=== PATIENT | male | born 1950 | race Caucasian/White ===

== ENCOUNTER 2017-11-10 09:18 | Outpatient (CLI) | payer MEDICARE, BC, SELFPAY ==
[2017-11-10 11:06] LABS: Anion Gap 4.6 mmol/L (3-11); BUN 22 mg/dL (7-18); CO2 32.4 mmol/L (21.0-32.0); Calcium 9.4 mg/dL (8.5-10.1); Chloride 99 mmol/L (98-107); Estimated GFR 54.73 (mL/min/1.73m2); Glucose 168 mg/dL (70-100); Potassium 4.8 mmol/L (3.5-5.1); Sodium 136 mmol/L (136-145)
== END 2017-11-10 09:38 ==
LOC: LBO 09:19 → LOS 11:12
PROVIDERS: PCP Emergency Medicine; Visit Provider Emergency Medicine
DX: I10 Essential (primary) hypertension (principal)
CPT/HCPCS: 36415; 80048

== ENCOUNTER → 2018-01-04 09:27 | Outpatient (BNVA) | payer MEDICARE, BC, SELFPAY | PROVIDERS: PCP Emergency Medicine; Visit Provider Psychiatry & Neurology Neurology | DX: G70.00 Myasthenia gravis without (acute) exacerbation (principal); E11.311 Type 2 diabetes mellitus with unspecified diabetic retinopathy with macular edema; I10 Essential (primary) hypertension; Z79.4 Long term (current) use of insulin | CPT/HCPCS: 99214 ==

== ENCOUNTER 2018-01-05 08:13 | Outpatient (CLI) | payer MEDICARE, BC, SELFPAY ==
[2018-01-05 11:13] LABS: Abs Immature Grans 0.01 k/cumm (0.0-0.09); Absolute Basophil Count 0.03 k/cumm (0.0-0.2); Absolute Monocyte Count 0.72 k/cumm (0.11-0.7); Absolute Neutrophil Count 3.66 k/cumm (1.2-6.7); Basophils % 0.5; Eosinophils % 3.4; HCT 42.2 % (40.0-50.0); HGB 13.8 g/dL (13.5-17.5); Immature Grans % 0.2; Lymphocytes % 20.6; Mean Corp. HGB Concentration 32.7 g/dL (32.0-36.0); Mean Corpuscular Hemoglobin 30.7 pg (27.0-33.0); Mean Corpuscular Volume 93.8 fL (80-95); Mean Platelet Volume 10.9 fL (8.0-11.0); Monocytes % 12.4; Neutrophils % 62.9; Platelet Count 235 x1000/uL (130-400); RBC Distribution Width 13.1 % (11.8-14.1); White Blood Cell Count 5.82 k/cumm (4.4-10.8)
[2018-01-05 12:50] LABS: ALT 46 U/L (12-78); AST 22 U/L (15-37); Albumin 3.9 g/dL (3.4-5.0); Alkaline Phosphatase 85 U/L (46-116); BUN 25 mg/dL (7-18); Bilirubin, Total 0.5 mg/dL (0.2-1.0); CREATININE 1.11 mg/dL (0.70-1.30); Calcium 9.1 mg/dL (8.5-10.1); Chloride 96 mmol/L (98-107); Glucose 277 mg/dL (70-100); Potassium 5.2 mmol/L (3.5-5.1); Sodium 134 mmol/L (136-145); Total Protein 6.9 g/dL (6.4-8.2)
== END 2018-01-05 08:33 ==
PROVIDERS: PCP Emergency Medicine; Visit Provider Psychiatry & Neurology Neurology
DX: R74.8 Abnormal levels of other serum enzymes (principal)
CPT/HCPCS: 36415; 80053; 85025

== ENCOUNTER 2018-01-08 08:39 | Outpatient (CLI) | payer MEDICARE, BC, SELFPAY ==
[2018-01-08 12:50] LABS: Anion Gap 7.2 mmol/L (3-11); BUN 21 mg/dL (7-18); CO2 31.8 mmol/L (21.0-32.0); CREATININE 1.13 mg/dL (0.70-1.30); Calcium 9.4 mg/dL (8.5-10.1); Chloride 99 mmol/L (98-107); Glucose 156 mg/dL (70-100); Potassium 4.6 mmol/L (3.5-5.1); Sodium 138 mmol/L (136-145)
== END 2018-01-08 08:59 ==
PROVIDERS: PCP Emergency Medicine; Visit Provider Psychiatry & Neurology Neurology
DX: G70.00 Myasthenia gravis without (acute) exacerbation (principal)
CPT/HCPCS: 36415; 80048

== ENCOUNTER 2018-02-19 15:45 | Emergency (ER) | payer OTHER, SELFPAY ==
[2018-02-19 15:53] VITALS: BP 171/84; PULSE 93; RESP 15; TEMP 37.3; O2SAT 96
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
[2018-02-19 16:28] LABS: Abs Immature Grans 0.04 k/cumm (0.0-0.09); Absolute Basophil Count 0.04 k/cumm (0.0-0.2); Absolute Eosinophil Count 0.06 k/cumm (0.0-0.7); Absolute Lymphocyte Count 0.94 k/cumm (1.2-3.4); Basophils % 0.3; Eosinophils % 0.5; HGB 14.1 g/dL (13.5-17.5); Immature Grans % 0.3; Lymphocytes % 7.9; Mean Corp. HGB Concentration 33.6 g/dL (32.0-36.0); Mean Corpuscular Hemoglobin 30.7 pg (27.0-33.0); Mean Corpuscular Volume 91.3 fL (80-95); Mean Platelet Volume 10.8 fL (8.0-11.0); Monocytes % 11.5; Neutrophils % 79.5; Platelet Count 261 x1000/uL (130-400); RBC Distribution Width 13.1 % (11.8-14.1); White Blood Cell Count 11.87 k/cumm (4.4-10.8)
[2018-02-19] MEDS: Normal Saline 250 ML 500 ML IV (16:29)
[2018-02-19 16:31] LABS: Absolute Monocyte Count 1.37 k/cumm (0.11-0.7); Absolute Neutrophil Count 9.44 k/cumm (1.2-6.7)
[2018-02-19 16:50] LABS: ALT 46 U/L (12-78); AST 36 U/L (15-37); Alkaline Phosphatase 94 U/L (46-116); Anion Gap 5.6 mmol/L (3-11); BUN 24 mg/dL (7-18); Bilirubin, Total 0.5 mg/dL (0.2-1.0); CO2 30.4 mmol/L (21.0-32.0); CREATININE 1.25 mg/dL (0.70-1.30); Calcium 9.3 mg/dL (8.5-10.1); Chloride 95 mmol/L (98-107); Glucose 445 mg/dL (70-100); Lipase 172 U/L (73-393); Magnesium 1.9 mg/dL (1.8-2.4); Potassium 3.7 mmol/L (3.5-5.1); Sodium 131 mmol/L (136-145); Total Protein 7.3 g/dL (6.4-8.2)
[2018-02-19 17:01] LABS: Troponin I < 0.02 ng/mL (0.00-0.06)
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
--- NOTE | 2018-02-19 17:18 | NUR.NOTE ---
patient to have CT, patient aware Nursing Note:
[2018-02-19 17:24] VITALS: BP 131/64; PULSE 78
[2018-02-19] MEDS: Omnipaque 350 MG/ML 100 ML BTL IJ (17:34)
--- NOTE | 2018-02-19 17:38 | NUR.NOTE ---
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 patient has call light in place Nursing Note:
[2018-02-19 18:11] VITALS: BP 168/78; PULSE 78; RESP 16; O2SAT 96
--- NOTE | 2018-02-19 18:11 | NUR.NOTE ---
patient sitting in chair, patient aware of awaiting CT results Nursing Note:
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
[2018-02-19 18:58] VITALS: BP 128/58; PULSE 84; RESP 18; O2SAT 96
--- NOTE | 2018-02-19 18:59 | NUR.NOTE ---
patient aware of waiting for [facility] to return call Nursing Note:
[2018-02-19 19:03] LABS: Bilirubin Negative (Negative); Blood Large (Negative); Clarity Cloudy; Glucose 500 mg/dL (Negative); Ketones Negative (Negative); Leukocyte Esterase Negative (Negative); Nitrite Negative (Negative); Specific Gravity 1.015 (1.005-1.025); Urobilinogen 0.2 EU/dL (Up TO 0.2)
[2018-02-19 19:06] LABS: RBC >50 (0-2)
[2018-02-19 19:07] LABS: C & S Indicated? Yes
--- NOTE | 2018-02-19 19:33 | NUR.NOTE ---
patient refuses to take home medication, patient signed out MD EMILY aware Nursing Note:
[2018-02-19 19:34] VITALS: BP 164/84; RESP 18; O2SAT 96
== END 2018-02-19 19:36 | disposition left against medical advice (07) ==
PROVIDERS: Emergency Provider Physician Assistant; PCP Emergency Medicine
DX: S22.20XA Unspecified fracture of sternum, initial encounter for closed fracture (principal); R31.9 Hematuria, unspecified; R93.41 Abnormal radiologic findings on diagnostic imaging of renal pelvis, ureter, or bladder; V43.52XA Car driver injured in collision with other type car in traffic accident, initial encounter; Z53.29 Procedure and treatment not carried out because of patient's decision for other reasons; R07.81 Pleurodynia; E11.9 Type 2 diabetes mellitus without complications; Z79.4 Long term (current) use of insulin; I10 Essential (primary) hypertension
CPT/HCPCS: 36415; 74177; 80053; 83690; 93005; 99285; 81003; 81015; 83735; 84484; 85025; 87086; 93010; J3490

== ENCOUNTER → 2018-03-01 12:46 | Outpatient (BNVA) | payer MEDICARE, BC, SELFPAY | PROVIDERS: PCP Emergency Medicine; Referring Provider Emergency Medicine; Visit Provider Urology | DX: C67.9 Malignant neoplasm of bladder, unspecified (principal); E10.319 Type 1 diabetes mellitus with unspecified diabetic retinopathy without macular edema | CPT/HCPCS: 99214 ==

== ENCOUNTER 2018-03-08 09:30 | Day surgery (SDC) | payer MEDICARE, BC, SELFPAY ==
[2018-03-08] VITALS (7 sets, daily range): BP systolic 130–156; BP diastolic 55–79; PULSE 60–70; RESP 14–24; TEMP 36.5–37; O2SAT 96–99
[2018-03-08] MEDS: Lactated Ringers 1,000 ML 80 ML IV (10:25)
[2018-03-08] MEDS: Lidocaine 2% Jelly 6 ML SYR (13:35)
--- NOTE | 2018-03-08 13:40 | BLADDER_PTH ---
PATIENT: Guillermo Hines LOC: [facility] U#:[id number] AGE/SX: 68/M ROOM: RE03/08/[address]: Sandro Kang MD : [id number] BED: DIS: 03/08/2018 SPEC #: [id number] RECD: 03/08/18 17:59 STATUS: LIZET REQ #: [id number] KITTY: 03/08/18 13:[address]: Sandro Kang DEPT: Surgical Specimen RECD BY: Cynthia Sesay ENTERED: 03/08/18 17:59 SP TYPE: Bladder OTHR DR: Dilan Carbajal DO Tissues: 1 - BLADDER CURRETTINGS Procedures: GROSS AND MICRO LEVEL 5 Comments: [id number]
--- NOTE | 2018-03-08 14:21 | W.PM.DSUDISC ---
Discharge Plan Disposition Patient Disposition: HOME Condition: Stable Discharge Details Reason For Visit: BLADDER MASS Attending Provider: Sandro Kang Primary Care Provider: Dilan Carbajal Home Meds and New Rx's Prescriptions: No Action hydrochlorothiazide 25 mg tablet 37.5 mg PO DAILY RF: 0 lisinopril 20 mg tablet 20 mg PO HS RF: 0 amlodipine 10 mg tablet 10 mg PO DAILY RF: 0 omeprazole 20 mg capsule,delayed release(DR/EC) 20 mg PO .EVERY OTHER DAY RF: 0 ranitidine HCl 150 mg capsule 150 mg PO HS RF: 0 levothyroxine 75 mcg capsule 75 mcg PO DAILY RF: 0 Lantus U-100 Insulin 100 unit/mL solution 28 unit SC BID RF: 0 sulfasalazine 500 mg tablet 1,500 mg PO Q6H RF: 0 folic acid 0.8 mg capsule 0.8 mg PO DAILY RF: 0 insulin lispro 100 unit/mL solution 10 - 15 unit SC .three times day RF: 0 Humulin N NPH U-100 Insulin 100 unit/mL suspension See Patient Comments SC BID PRNRF: 0 mycophenolate mofetil 250 mg capsule 250 mg PO BID RF: 0 aspirin [Aspir-81] 81 MG tablet,delayed release (DR/EC) 81 mg PO DAILY RF: 0 blood sugar diagnostic [OneTouch Ultra Test] 1 EACH strip 1 ea Miscellaneous 5X DAILY Qty: 100 RF: 0 insulin syringe,safetyneedle [Easy Touch Insulin Safety Syr] 1 EACH syringe 1 ea SQ DIRECTED Qty: 700 RF: 4 pyridostigmine bromide [Mestinon] 60 mg tablet 60 mg PO Q6H PRN (Reason: weakness) Qty: 270 RF: 3 Discharge Instructions Additional Instructions: Posey to leg bag Followup Thursday for catheter removal Activity:: no lifting over 10 pounds until catheter removed Diet:: As Tolerated Discharge Orders Discharge Orders: Discharge Order (Routine); Ordered 03/08/18 Ordered By: Sandro Kang
[2018-03-08] MEDS: Phenazopyridine 200 MG TAB PO (15:08)
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
== END 2018-03-08 16:03 | disposition home or self-care (01) ==
PROVIDERS: PCP Emergency Medicine; Visit Provider Urology
PROC: 0TBB8ZZ Excision of Bladder, Via Natural or Artificial Opening Endoscopic (ICD-10-PCS; CPT 52235; principal; 2018-03-08 10:45)
DX: C67.4 Malignant neoplasm of posterior wall of bladder (principal); E10.9 Type 1 diabetes mellitus without complications; E03.9 Hypothyroidism, unspecified
CPT/HCPCS: 52235; 88307; J0690; J1100; J1885; J2405

== ENCOUNTER → 2018-03-12 07:36 | Outpatient (BNVA) | payer MEDICARE, BC, SELFPAY | PROVIDERS: PCP Emergency Medicine; Visit Provider Urology | DX: D41.4 Neoplasm of uncertain behavior of bladder (principal); E11.9 Type 2 diabetes mellitus without complications; Z79.4 Long term (current) use of insulin; I10 Essential (primary) hypertension | CPT/HCPCS: 99212; 99213 ==

== ENCOUNTER 2018-05-28 09:54 | Outpatient (CLI) | payer MEDICARE, BC, SELFPAY ==
[2018-05-28 13:02] LABS: Cholesterol 228 mg/dL (50-200); HDL Cholesterol 59 mg/dL (40-60); LDL CHOLESTEROL 151 mg/dL (<100); Triglyceride 72 mg/dL (30-150)
[2018-05-28 13:29] LABS: Creatine Kinase 410 U/L (39-308)
== END 2018-05-28 10:14 ==
PROVIDERS: PCP Emergency Medicine; Visit Provider Emergency Medicine
DX: R74.8 Abnormal levels of other serum enzymes (principal); E11.9 Type 2 diabetes mellitus without complications
CPT/HCPCS: 36415; 80061; 82550; 83721

== ENCOUNTER → 2018-06-22 08:33 | Outpatient (BNVA) | payer MEDICARE, BC, SELFPAY | PROVIDERS: PCP Emergency Medicine; Visit Provider Urology | DX: C67.9 Malignant neoplasm of bladder, unspecified (principal) | CPT/HCPCS: 52000; 99212 ==

== ENCOUNTER 2018-09-29 02:27 | Outpatient (CLI) | payer MEDICARE, BC, SELFPAY ==
[2018-09-29 12:42] LABS: Anion Gap 4.7 mmol/L (3-11); BUN 21 mg/dL (7-18); CO2 32.3 mmol/L (21.0-32.0); CREATININE 1.11 mg/dL (0.70-1.30); Calcium 9.1 mg/dL (8.5-10.1); Calculated LDL 100 mg/dL; Chloride 100 mmol/L (98-107); Cholesterol 176 mg/dL (50-200); Glucose 177 mg/dL (70-100); HDL Cholesterol 58 mg/dL (40-60); Potassium 5.3 mmol/L (3.5-5.1); Sodium 137 mmol/L (136-145); Triglyceride 91 mg/dL (30-150)
[2018-09-29 12:55] LABS: Hemoglobin A1C 6.7 % (4.5-6.2)
== END 2018-09-29 02:47 ==
PROVIDERS: PCP Emergency Medicine; Visit Provider Emergency Medicine
DX: E11.9 Type 2 diabetes mellitus without complications (principal)
CPT/HCPCS: 36415; 80048; 80061; 83721; 83036

== ENCOUNTER → 2018-10-19 13:24 | Outpatient (BNVA) | payer MEDICARE, BC, SELFPAY | PROVIDERS: PCP Emergency Medicine; Visit Provider Urology | DX: C67.9 Malignant neoplasm of bladder, unspecified (principal); I10 Essential (primary) hypertension; E11.9 Type 2 diabetes mellitus without complications | CPT/HCPCS: 52000; 99212 ==

== ENCOUNTER → 2019-01-17 09:48 | Outpatient (BNVA) | payer MEDICARE, BC, SELFPAY | PROVIDERS: PCP Emergency Medicine; Referring Provider Emergency Medicine; Visit Provider Psychiatry & Neurology Neurology | DX: R74.8 Abnormal levels of other serum enzymes (principal); G70.00 Myasthenia gravis without (acute) exacerbation; E11.9 Type 2 diabetes mellitus without complications | CPT/HCPCS: 99214 ==

== ENCOUNTER 2019-01-21 09:02 | Outpatient (CLI) | payer MEDICARE, BC, SELFPAY ==
[2019-01-21 10:45] LABS: Abs Immature Grans 0.01 k/cumm (0.0-0.09); Absolute Basophil Count 0.03 k/cumm (0.0-0.2); Absolute Eosinophil Count 0.07 k/cumm (0.0-0.7); Absolute Lymphocyte Count 1.08 k/cumm (1.2-3.4); Absolute Monocyte Count 0.82 k/cumm (0.11-0.7); Absolute Neutrophil Count 4.44 k/cumm (1.2-6.7); Basophils % 0.5; Eosinophils % 1.1; HCT 42.3 % (40.0-50.0); Immature Grans % 0.2; Lymphocytes % 16.7; Mean Corp. HGB Concentration 33.1 g/dL (32.0-36.0); Mean Corpuscular Hemoglobin 31.4 pg (27.0-33.0); Mean Corpuscular Volume 94.8 fL (80-95); Mean Platelet Volume 10.3 fL (8.0-11.0); Monocytes % 12.7; Neutrophils % 68.8; Platelet Count 261 x1000/uL (130-400); RBC 4.46 m/cumm (4.50-6.00); RBC Distribution Width 12.7 % (11.8-14.1); White Blood Cell Count 6.45 k/cumm (4.4-10.8)
[2019-01-21 11:39] LABS: ALT 42 U/L (16-63); AST 24 U/L (15-37); Albumin 4.1 g/dL (3.4-5.0); Alkaline Phosphatase 77 U/L (46-116); Anion Gap 8.2 mmol/L (3-11); BUN 21 mg/dL (7-18); Bilirubin, Total 0.4 mg/dL (0.2-1.0); CO2 31.8 mmol/L (21.0-32.0); CREATININE 1.22 mg/dL (0.70-1.30); Calcium 9.4 mg/dL (8.5-10.1); Chloride 99 mmol/L (98-107); Estimated GFR 58.73 (mL/min/1.73m2); Glucose 280 mg/dL (74-106); Potassium 5.6 mmol/L (3.5-5.1); Sodium 139 mmol/L (136-145); Total Protein 7.1 g/dL (6.4-8.2)
== END 2019-01-21 09:22 ==
PROVIDERS: PCP Emergency Medicine; Visit Provider Psychiatry & Neurology Neurology
DX: G70.00 Myasthenia gravis without (acute) exacerbation (principal)
CPT/HCPCS: 36415; 80053; 85025

== ENCOUNTER → 2019-02-18 08:35 | Outpatient (BNVA) | payer MEDICARE, BC, SELFPAY | PROVIDERS: PCP Emergency Medicine; Referring Provider Emergency Medicine; Visit Provider Urology | DX: C67.9 Malignant neoplasm of bladder, unspecified (principal) | CPT/HCPCS: 52000; 99213 ==

== ENCOUNTER → 2019-03-14 10:12 | Outpatient (BNVA) | payer MEDICARE, BC, SELFPAY | PROVIDERS: PCP Emergency Medicine; Referring Provider Emergency Medicine; Visit Provider Psychiatry & Neurology Neurology | DX: G70.00 Myasthenia gravis without (acute) exacerbation (principal) | CPT/HCPCS: 99214 ==

== ENCOUNTER 2019-08-11 02:42 | Outpatient (CLI) | payer MEDICARE, BC, SELFPAY ==
[2019-08-11 10:41] LABS: Hemoglobin A1C 6.2 % (3.8-5.6)
[2019-08-11 11:31] LABS: TSH 2.22 uIU/mL (0.36-3.74)
== END 2019-08-11 03:02 ==
PROVIDERS: PCP Emergency Medicine; Visit Provider Internal Medicine Endocrinology, Diabetes & Metabolism
DX: E10.8 Type 1 diabetes mellitus with unspecified complications (principal)
CPT/HCPCS: 36415; 83036; 84443

== ENCOUNTER → 2019-08-23 09:04 | Outpatient (BNVA) | payer MEDICARE, BC, SELFPAY | PROVIDERS: PCP Emergency Medicine; Referring Provider Emergency Medicine; Visit Provider Urology | DX: C67.9 Malignant neoplasm of bladder, unspecified (principal) | CPT/HCPCS: 52000; 99213 ==

== ENCOUNTER 2019-08-23 11:35 | Outpatient (REF) | payer MEDICARE, BC, SELFPAY ==
--- NOTE | 2019-08-23 09:40 | PAPNONF_PTH ---
PATIENT: Guillermo Hines LOC: [facility] U#:[id number] AGE/SX: 69/M ROOM: RE08/23/[address]: Sandro Kang MD : 1950 BED: DIS: 08/23/2019 SPEC #: [id number] RECD: 08/23/19 12:46 STATUS: LIZET REQ #: [id number] KITTY: 08/23/19 09:[address]: Sandro Kang DEPT: [facility] Cytology RECD BY: Cynthia Sesay ENTERED: 08/23/19 12:47 SP TYPE: VELVET REINA DR: Dilan Carbajal, DO Tissues: 1 - BODY FLUID CYTO(SPUTUM/URINE)[facility] Procedures: BODY FLUID CYTO(URINE/SPUTUM) Comments: [id number] (TOTAL VOLUME = 45 ml's) (45 ml's URINE & 45 ml's CYTOLYT ADDED)
== END 2019-08-23 11:55 ==
LOC: LBN 11:35
PROVIDERS: PCP Emergency Medicine; Visit Provider Urology
DX: C67.9 Malignant neoplasm of bladder, unspecified (principal); R82.89 Other abnormal findings on cytological and histological examination of urine
CPT/HCPCS: 88104

== ENCOUNTER → 2019-10-13 14:46 | Outpatient (BNVA) | payer MEDICARE, BC, SELFPAY | PROVIDERS: PCP Emergency Medicine; Referring Provider Emergency Medicine; Visit Provider Psychiatry & Neurology Neurology | DX: G70.00 Myasthenia gravis without (acute) exacerbation (principal); I10 Essential (primary) hypertension | CPT/HCPCS: 99214 ==

== ENCOUNTER → 2019-11-17 13:27 | Outpatient (BNVA) | payer MEDICARE, BC, SELFPAY | PROVIDERS: PCP Emergency Medicine; Referring Provider Emergency Medicine; Visit Provider Psychiatry & Neurology Neurology | DX: G70.00 Myasthenia gravis without (acute) exacerbation (principal); E11.9 Type 2 diabetes mellitus without complications; I10 Essential (primary) hypertension | CPT/HCPCS: 99213 ==

== ENCOUNTER 2019-11-23 03:15 | Outpatient (CLI) | payer MEDICARE, BC, SELFPAY ==
[2019-11-23 12:52] LABS: Abs Immature Grans 0.01 10^3/uL (0.0-0.06); Absolute Basophil Count 0.05 10^3/uL (0.0-0.2); Absolute Eosinophil Count 0.07 10^3/uL (0.0-0.7); Absolute Lymphocyte Count 0.99 10^3/uL (1.2-3.4); Absolute Monocyte Count 0.62 10^3/uL (0.1-0.8); Absolute Neutrophil Count 4.01 10^3/uL (1.2-6.7); Basophils % 0.9; Eosinophils % 1.2; HCT 41.1 % (40.0-50.0); HGB 13.5 g/dL (13.5-17.5); Immature Grans % 0.2; Lymphocytes % 17.2; MCH 31.6 pg (27.0-33.0); MCHC 32.8 % (32.0-36.0); MCV 96.3 fL (80-95); MPV 10.7 fL (8.0-11.0); Monocytes % 10.8; Neutrophils % 69.7; Nucleated RBC 0 %; Platelet Count 247 10^3/uL (130-400); RBC 4.27 10^6/uL (4.36-5.78); RDW 13.4 % (11.8-14.1); RDW-SD 46.5 fL; WBC 5.75 10^3/uL (4.4-10.8)
[2019-11-23 13:09] LABS: ALT 34 U/L (16-63); AST 20 U/L (15-37); Albumin 3.8 g/dL (3.4-5.0); Alkaline Phosphatase 60 U/L (46-116); Anion Gap 5.7 mmol/L (3-11); BUN 18 mg/dL (7-18); Bilirubin, Total 0.6 mg/dL (0.2-1.0); CO2 31.3 mmol/L (21.0-32.0); CREATININE 1.11 mg/dL (0.70-1.30); Calcium 8.9 mg/dL (8.5-10.1); Chloride 100 mmol/L (98-107); Glucose 280 mg/dL (74-106); Potassium 4.6 mmol/L (3.5-5.1); Sodium 137 mmol/L (136-145); Total Protein 6.4 g/dL (6.4-8.2)
== END 2019-11-23 03:35 ==
PROVIDERS: PCP Emergency Medicine; Visit Provider Psychiatry & Neurology Neurology
DX: G70.00 Myasthenia gravis without (acute) exacerbation (principal)
CPT/HCPCS: 36415; 80053; 85025

== ENCOUNTER → 2020-01-19 09:18 | Outpatient (BNVA) | payer MEDICARE, BC, SELFPAY | PROVIDERS: PCP Emergency Medicine; Referring Provider Emergency Medicine; Visit Provider Psychiatry & Neurology Neurology | DX: G70.00 Myasthenia gravis without (acute) exacerbation (principal); E11.9 Type 2 diabetes mellitus without complications; I10 Essential (primary) hypertension; Z79.4 Long term (current) use of insulin | CPT/HCPCS: 99214 ==

== ENCOUNTER 2020-02-07 04:11 | Outpatient (CLI) | payer MEDICARE, BC, SELFPAY ==
[2020-02-07 13:07] LABS: COMMENT (LAB VIEW ONLY) 104.87 mg/dL
[2020-02-07 13:08] LABS: CREATININE 1.15 mg/dL (0.70-1.30); Calculated LDL 149 mg/dL (<100); Cholesterol 230 mg/dL (<200); HDL Cholesterol 64 mg/dL (40-60); TSH 3.42 uIU/mL (0.36-3.74); Triglyceride 88 mg/dL (<150)
[2020-02-07 13:17] LABS: Microalb ug/mg Crea 161.1 ug/mg Cr
[2020-02-07 13:19] LABS: Hemoglobin A1C 6.2 % (<5.7)
[2020-02-07 19:45] LABS: Creatinine,Urine 106.05 mg/dL
== END 2020-02-07 04:31 ==
PROVIDERS: PCP Emergency Medicine; Visit Provider Internal Medicine Endocrinology, Diabetes & Metabolism
DX: E10.8 Type 1 diabetes mellitus with unspecified complications (principal)
CPT/HCPCS: 36415; 80061; 82043; 82565; 82570; 83036; 84443

== ENCOUNTER → 2020-03-15 09:57 | Outpatient (BNVA) | payer MEDICARE, BC, SELFPAY | PROVIDERS: PCP Emergency Medicine; Referring Provider Emergency Medicine; Visit Provider Urology | DX: C67.9 Malignant neoplasm of bladder, unspecified (principal) | CPT/HCPCS: 52000; 81003; 99213 ==

== ENCOUNTER 2020-03-15 10:40 | Outpatient (REF) | payer MEDICARE, BC, SELFPAY ==
--- NOTE | 2020-03-15 10:30 | PAPNONF_PTH ---
PATIENT: Guillermo Hines LOC: [facility] U#:[id number] AGE/SX: 70/M ROOM: RE03/15/[address]: Sandro Kang MD : 1950 BED: DIS: 03/15/2020 SPEC #: [id number] RECD: 03/15/20 13:00 STATUS: LIZET RENic #: [id number] KITTY: 03/15/20 10:[address]: Sandro Kang [facility]PT[facility] RECD BY: Cynthia Sesay ENTERED: 03/15/20 13:00 SP TYPE: VELVET REINA DR: Dilan Carbajal, DO Tissues: 1 - BODY FLUID CYTO(SPUTUM/URINE)[facility] Procedures: BODY FLUID CYTO(URINE/SPUTUM) Comments: [id number] (TOTAL VOLUME = 40 ml's) (40 ml's URINE & 40'ml's CYTOLYT ADDED)
== END 2020-03-15 11:00 ==
LOC: LBN 10:40
PROVIDERS: PCP Emergency Medicine; Visit Provider Urology
DX: C67.9 Malignant neoplasm of bladder, unspecified (principal); R82.89 Other abnormal findings on cytological and histological examination of urine
CPT/HCPCS: 88104

== ENCOUNTER → 2020-03-19 10:54 | Outpatient (BNVA) | payer MEDICARE, BC, SELFPAY | PROVIDERS: PCP Emergency Medicine; Referring Provider Emergency Medicine; Visit Provider Psychiatry & Neurology Neurology | DX: G70.00 Myasthenia gravis without (acute) exacerbation (principal); E11.9 Type 2 diabetes mellitus without complications | CPT/HCPCS: 99215 ==

== ENCOUNTER 2020-04-20 01:39 | Outpatient (RCR) | payer MEDICARE, BC, SELFPAY ==
[2020-04-16 08:04] VITALS: BP 170/74; PULSE 77; RESP 19; TEMP 36.4; O2SAT 97
[2020-04-16] MEDS: IMMUNE GLOBULIN 40 GM/400 ML BTL IVPB (08:18)
[2020-04-16] MEDS: Normal Saline Flush 10 ML SYR IVP (08:20)
[2020-04-16 08:24] VITALS: BP 154/97; PULSE 75; RESP 19; TEMP 36.4; O2SAT 99
[2020-04-16 08:40] VITALS: BP 151/67; PULSE 75; RESP 18; TEMP 36.6; O2SAT 99
[2020-04-16 09:09] VITALS: BP 163/64; PULSE 68; RESP 18; TEMP 36.5; O2SAT 96
[2020-04-16 09:40] VITALS: BP 136/69; PULSE 60; RESP 12; TEMP 36.6; O2SAT 97
[2020-04-16 10:09] VITALS: BP 155/75; PULSE 47; RESP 19; TEMP 36.6; O2SAT 97
[2020-04-17 08:08] VITALS: BP 182/81; PULSE 85; RESP 20; TEMP 37.2; O2SAT 98
[2020-04-17] MEDS: IMMUNE GLOBULIN 40 GM/400 ML BTL IVPB (08:08)
[2020-04-17] MEDS: Normal Saline Flush 10 ML SYR IVP (08:09)
[2020-04-17 08:13] VITALS: BP 187/74; PULSE 77; RESP 19; TEMP 37.2; O2SAT 97
[2020-04-17 08:28] VITALS: BP 147/67; PULSE 74; RESP 18; TEMP 37; O2SAT 97
[2020-04-17 08:29] LABS: CREATININE 1.4 mg/dL (0.70-1.30); Estimated GFR 49.82 (mL/min/1.73m2)
[2020-04-17 08:58] VITALS: BP 124/58; PULSE 74; RESP 19; TEMP 37; O2SAT 97
[2020-04-17 09:28] VITALS: BP 133/77; PULSE 68; RESP 18; TEMP 37; O2SAT 95
[2020-04-17 09:58] VITALS: BP 173/84; PULSE 67; RESP 19; TEMP 37; O2SAT 97
[2020-04-18 08:04] VITALS: BP 168/77; PULSE 82; RESP 19; TEMP 36.3; O2SAT 97
[2020-04-18] MEDS: IMMUNE GLOBULIN 40 GM/400 ML BTL IVPB (08:12)
[2020-04-18] MEDS: Normal Saline Flush 10 ML SYR IVP (08:12)
[2020-04-18 08:15] VITALS: BP 149/63; PULSE 72; RESP 18; TEMP 36.3; O2SAT 99
[2020-04-18 08:30] VITALS: BP 130/59; PULSE 71; RESP 18; TEMP 36.3; O2SAT 98
[2020-04-18 09:00] VITALS: BP 130/65; PULSE 65; RESP 20; TEMP 36.8; O2SAT 96
[2020-04-18 09:30] VITALS: BP 137/64; PULSE 69; RESP 20; TEMP 36.8; O2SAT 95
[2020-04-18 10:00] VITALS: BP 158/65; PULSE 61; RESP 20; TEMP 36.8; O2SAT 98
[2020-04-19] MEDS: IMMUNE GLOBULIN 40 GM/400 ML BTL IVPB (08:05)
[2020-04-19 08:07] VITALS: BP 144/64; PULSE 69; RESP 19; TEMP 36.4; O2SAT 100
[2020-04-19 08:09] VITALS: BP 144/64; PULSE 69; RESP 19; TEMP 36.4; O2SAT 99
[2020-04-19] MEDS: Normal Saline Flush 10 ML SYR IVP (08:09)
[2020-04-19 08:24] VITALS: BP 122/64; PULSE 65; RESP 18; TEMP 36.4; O2SAT 97
[2020-04-19 08:54] VITALS: BP 124/59; PULSE 61; RESP 18; TEMP 36.4; O2SAT 98
[2020-04-19 09:32] VITALS: BP 135/70; PULSE 64; RESP 17; TEMP 36.6; O2SAT 96
[2020-04-19 09:54] VITALS: BP 149/81; PULSE 64; RESP 18; TEMP 36.6; O2SAT 97
[2020-04-20] MEDS: Normal Saline Flush 10 ML SYR IVP (07:38)
[2020-04-20] MEDS: IMMUNE GLOBULIN 40 GM/400 ML BTL IVPB (07:38)
[2020-04-20 07:39] VITALS: BP 130/68; PULSE 65; RESP 16; TEMP 36.2; O2SAT 98
[2020-04-20 07:42] LABS: CREATININE 1.2 mg/dL (0.70-1.30); Estimated GFR 59.51 (mL/min/1.73m2)
[2020-04-20 07:55] VITALS: BP 135/71; PULSE 64; RESP 16; TEMP 36.1; O2SAT 96
[2020-04-20 08:16] VITALS: BP 126/70; PULSE 59; RESP 16; TEMP 36.1; O2SAT 97
[2020-04-20 08:45] VITALS: BP 142/75; PULSE 60; RESP 16; TEMP 36.8; O2SAT 98
== END 2020-04-29 23:59 | disposition home or self-care (01) ==
LOC: INF 01:39
PROVIDERS: PCP Emergency Medicine; Visit Provider Psychiatry & Neurology Neurology
DX: G70.00 Myasthenia gravis without (acute) exacerbation (principal)
CPT/HCPCS: 36415; 96365; 96366; 82565; J1459

== ENCOUNTER → 2020-05-21 11:20 | Outpatient (BNVA) | payer MEDICARE, BC, SELFPAY | PROVIDERS: PCP Emergency Medicine; Referring Provider Emergency Medicine; Visit Provider Psychiatry & Neurology Neurology | DX: G70.00 Myasthenia gravis without (acute) exacerbation (principal) | CPT/HCPCS: 99215 ==

== ENCOUNTER 2020-05-30 02:26 | Outpatient (RCR) | payer MEDICARE, BC, SELFPAY ==
[2020-04-30 00:10] VITALS: BP 142/75; PULSE 60; RESP 16; TEMP 36.8
[2020-05-28 08:22] VITALS: BP 150/69; PULSE 64; RESP 18; TEMP 37.1; O2SAT 96
[2020-05-28] MEDS: IMMUNE GLOBULIN 40 GM/400 ML BTL IVPB (08:32)
[2020-05-28] MEDS: Normal Saline Flush 10 ML SYR IVP (08:40)
[2020-05-28 08:55] VITALS: BP 170/89; PULSE 73; RESP 18; TEMP 37; O2SAT 95
[2020-05-28 09:12] VITALS: BP 165/78; PULSE 65; RESP 18; TEMP 36.9; O2SAT 98
[2020-05-28 09:46] VITALS: BP 143/77; PULSE 60; RESP 18; TEMP 36.9; O2SAT 95
[2020-05-28 10:14] VITALS: BP 153/80; PULSE 62; RESP 18; TEMP 36.8; O2SAT 97
[2020-05-28 10:30] VITALS: BP 172/80; PULSE 64; RESP 18; TEMP 36.2; O2SAT 96
[2020-05-29] VITALS (7 sets, daily range): BP systolic 134–167; BP diastolic 64–76; PULSE 61–66; RESP 14–20; TEMP 36.1–36.4; O2SAT 98–99
[2020-05-29] MEDS: IMMUNE GLOBULIN 40 GM/400 ML BTL IVPB (08:05)
[2020-05-29] MEDS: Normal Saline Flush 10 ML SYR IVP (08:06)
[2020-05-29 08:38] LABS: CREATININE 1.3 mg/dL (0.70-1.30); Estimated GFR 54.26 (mL/min/1.73m2)
[2020-05-30] VITALS (7 sets, daily range): BP systolic 133–165; BP diastolic 69–79; PULSE 58–70; RESP 20; TEMP 35.8–36; O2SAT 96–98
[2020-05-30] MEDS: IMMUNE GLOBULIN 40 GM/400 ML BTL IVPB (08:23)
[2020-05-30] MEDS: Normal Saline Flush 10 ML SYR IVP (09:29)
== END 2020-05-30 23:59 | disposition home or self-care (01) ==
LOC: INF 02:26
PROVIDERS: PCP Emergency Medicine; Visit Provider Psychiatry & Neurology Neurology
DX: G70.00 Myasthenia gravis without (acute) exacerbation (principal)
CPT/HCPCS: 36415; 96365; 96366; 82565; J1459

== ENCOUNTER 2020-06-01 04:18 | Outpatient (RCR) | payer MEDICARE, BC, SELFPAY ==
[2020-05-31 00:06] VITALS: BP 157/76; PULSE 59; RESP 20; TEMP 35.9
[2020-05-31 08:10] VITALS: BP 152/79; PULSE 66; RESP 16; TEMP 36.3; O2SAT 99
[2020-05-31] MEDS: IMMUNE GLOBULIN 40 GM/400 ML BTL IVPB (08:12)
[2020-05-31] MEDS: Normal Saline Flush 10 ML SYR IVP (08:12)
[2020-05-31 08:35] VITALS: BP 137/72; PULSE 64; RESP 16; TEMP 36.3; O2SAT 98
[2020-05-31 08:51] VITALS: BP 160/78; PULSE 64; RESP 16; TEMP 36.1; O2SAT 98
[2020-05-31 09:26] VITALS: BP 158/81; PULSE 59; RESP 16; TEMP 36; O2SAT 97
[2020-05-31 10:00] VITALS: BP 168/82; PULSE 61; RESP 16; TEMP 36.2; O2SAT 98
[2020-06-01 08:03] VITALS: BP 153/76; PULSE 68; RESP 20; TEMP 35.9; O2SAT 97
[2020-06-01] MEDS: IMMUNE GLOBULIN 40 GM/400 ML BTL IVPB (08:03)
[2020-06-01] MEDS: Normal Saline Flush 10 ML SYR IVP (08:03)
[2020-06-01 08:16] LABS: CREATININE 1.3 mg/dL (0.70-1.30); Estimated GFR 54.26 (mL/min/1.73m2)
[2020-06-01 08:25] VITALS: BP 142/72; PULSE 65; RESP 16; TEMP 36; O2SAT 96
[2020-06-01 08:45] VITALS: BP 144/76; PULSE 65; RESP 16; TEMP 35.7; O2SAT 96
[2020-06-01 09:17] VITALS: BP 169/66; PULSE 59; RESP 20; TEMP 36; O2SAT 99
[2020-06-01 09:47] VITALS: BP 164/82; PULSE 57; RESP 16; TEMP 36; O2SAT 98
[2020-06-01 10:08] VITALS: BP 177/88; PULSE 57; RESP 16; TEMP 36.7; O2SAT 98
== END 2020-06-29 23:59 | disposition home or self-care (01) ==
LOC: INF 04:18
PROVIDERS: PCP Emergency Medicine; Visit Provider Psychiatry & Neurology Neurology
DX: G70.00 Myasthenia gravis without (acute) exacerbation (principal)
CPT/HCPCS: 36415; 96365; 96366; 82565; J1459

== ENCOUNTER → 2020-07-02 09:27 | Outpatient (BNVA) | payer MEDICARE, BC, SELFPAY | PROVIDERS: PCP Emergency Medicine; Visit Provider Psychiatry & Neurology Neurology | DX: G70.00 Myasthenia gravis without (acute) exacerbation (principal); E11.9 Type 2 diabetes mellitus without complications; I10 Essential (primary) hypertension | CPT/HCPCS: 99213 ==

== ENCOUNTER 2020-07-12 01:49 | Outpatient (RCR) | payer MEDICARE, BC, SELFPAY ==
[2020-06-30 00:05] VITALS: BP 177/88; PULSE 57; RESP 16; TEMP 36.7
[2020-07-10] MEDS: Normal Saline Flush 10 ML SYR IVP (08:07)
[2020-07-10] MEDS: IMMUNE GLOBULIN 5 GM/50 ML BTL IV (08:12)
[2020-07-10 08:22] VITALS: BP 146/72; PULSE 60; RESP 12; TEMP 36.8; O2SAT 98
[2020-07-10 08:37] VITALS: BP 147/71; PULSE 60; RESP 12; TEMP 36.8; O2SAT 96
[2020-07-10] MEDS: IMMUNE GLOBULIN 20 GM/200 ML BTL IV (08:46)
[2020-07-10 08:51] VITALS: BP 144/74; PULSE 59; RESP 12; TEMP 37.1; O2SAT 96
[2020-07-10 09:20] VITALS: BP 147/72; PULSE 58; RESP 16; TEMP 37.1; O2SAT 96
[2020-07-10] MEDS: IMMUNE GLOBULIN 40 GM/400 ML BTL IV (09:50)
[2020-07-10 09:57] VITALS: BP 174/79; PULSE 69; RESP 16; TEMP 37; O2SAT 96
[2020-07-10 10:27] VITALS: BP 161/85; PULSE 59; RESP 16; TEMP 37.1; O2SAT 96
[2020-07-11] MEDS: Normal Saline Flush 10 ML SYR IVP (08:07)
[2020-07-11] MEDS: IMMUNE GLOBULIN 5 GM/50 ML BTL IV (08:10)
[2020-07-11 08:15] VITALS: BP 146/73; PULSE 61; RESP 12; TEMP 36.6; O2SAT 96
[2020-07-11 08:21] LABS: CREATININE 1.2 mg/dL (0.70-1.30); Estimated GFR 59.51 (mL/min/1.73m2)
[2020-07-11 08:30] VITALS: BP 146/72; PULSE 57; RESP 12; TEMP 36.6; O2SAT 96
[2020-07-11] MEDS: IMMUNE GLOBULIN 20 GM/200 ML BTL IV (08:42)
[2020-07-11 09:00] VITALS: BP 154/76; PULSE 58; RESP 12; TEMP 36.8; O2SAT 96
[2020-07-11 09:30] VITALS: BP 166/77; PULSE 57; RESP 12; TEMP 36.8; O2SAT 97
[2020-07-11] MEDS: IMMUNE GLOBULIN 40 GM/400 ML BTL IV (09:39)
[2020-07-11 10:00] VITALS: BP 158/78; PULSE 58; RESP 12; TEMP 37; O2SAT 97
[2020-07-12] MEDS: IMMUNE GLOBULIN 5 GM/50 ML BTL IV (08:01)
[2020-07-12] MEDS: Normal Saline Flush 10 ML SYR IVP (08:01)
[2020-07-12 08:05] VITALS: BP 171/74; PULSE 63; RESP 16; TEMP 36.4; O2SAT 97
[2020-07-12 08:20] VITALS: BP 163/77; PULSE 58; RESP 16; TEMP 36.5; O2SAT 96
[2020-07-12] MEDS: IMMUNE GLOBULIN 20 GM/200 ML BTL IV (08:30)
[2020-07-12 08:50] VITALS: BP 164/79; PULSE 59; RESP 16; TEMP 36.5; O2SAT 97
[2020-07-12 09:20] VITALS: BP 176/77; PULSE 57; RESP 16; TEMP 36.5; O2SAT 98
[2020-07-12] MEDS: IMMUNE GLOBULIN 40 GM/400 ML BTL IV (09:37)
[2020-07-12 09:50] VITALS: BP 175/83; PULSE 57; RESP 16; TEMP 36.7; O2SAT 98
== END 2020-07-30 23:59 | disposition home or self-care (01) ==
LOC: INF 01:49
PROVIDERS: PCP Emergency Medicine; Visit Provider Psychiatry & Neurology Neurology
DX: G70.00 Myasthenia gravis without (acute) exacerbation (principal)
CPT/HCPCS: 36415; 96365; 96366; 82565; J1459

== ENCOUNTER 2020-07-22 12:24 | Observation (INO) | payer MEDICARE, BC, SELFPAY ==
[2020-07-22] VITALS (61 sets, daily range): BP systolic 156–192; BP diastolic 65–94; PULSE 54–97; RESP 0–28; TEMP 36.2–36.8; O2SAT 90–100; BMI 28.5
--- NOTE | 2020-07-22 12:15 | RT.EKG_ITS ---
APPROVED REPORT Exam: Resting ECG Reason for Exam: abdominal pain Patient Location: E HR:58 bpm ECG Measurements Heart Rate 58 AXIS VT 163 P 9 QRSd 109 QRS 50 QT 408 T 71 QTc 402 Conclusion Sinus bradycardia...rate< 60. No STEMI. I have reviewed and interpreted ECG and agree with software generated interpretation.
--- NOTE | 2020-07-22 12:25 | ED.GENADUL_ITS ---
Discharge Plan Disposition Patient Disposition: [facility] INPATIENT Condition: Stable Discharge Details Chief Complaint: Abd Prob Clinical Impression: Acute appendicitis Primary Care Provider: Dilan Carbajal ED Provider: Sophy Win Home Meds and New Rx's Prescriptions: No Action levothyroxine 75 mcg capsule 75 mcg PO DAILY RF: 0 sulfasalazine 500 mg tablet 1,500 mg PO BID RF: 0 insulin lispro [Humalog U-100 Insulin] 100 unit/mL solution 10 - 15 unit SC TID RF: 0 pyridostigmine bromide [Mestinon] 60 mg tablet 120 mg PO QID Qty: 720 RF: 3 hydrochlorothiazide 25 mg tablet 25 mg PO DAILY RF: 0 Lantus U-100 Insulin 100 unit/mL solution 28 unit subcut BID RF: 0 (DME) OneTouch Ultra Test 1 EACH strip 1 ea Miscellaneous 5X DAILY Qty: 100 RF: 0 (DME) Easy Touch Insulin Safety Syr 1 EACH syringe 1 ea SQ DIRECTED Qty: 700 RF: 4 Humulin N NPH U-100 Insulin 100 unit/mL suspension 5 unit SC DIRECTED RF: 0 lisinopril 20 mg tablet 20 mg PO HS Qty: 90 RF: 3 amlodipine 10 mg tablet 10 mg PO DAILY Qty: 90 RF: 3 aspirin [Aspir-81] 81 mg tablet,delayed release (DR/EC) 81 mg PO DAILY RF: 0 mycophenolate mofetil 500 mg tablet 1,000 mg PO BID Qty: 360 RF: 3 Medical Decision Making Patient is a pleasant 70-year-old male brought in by his with chief complaint of sudden onset of abdominal pain. Pain began around 3 AM and woke the patient from sleep. Denies any nausea vomiting. No bowel movement today. Pain does not radiate. He is holding area just below the umbilicus, diaphoretic. Patient has not had pain like this historically past medical history pertinent for Crohn's disease, diabetes, GERD, hypertension or hyperlipidemia, myasthenia gravis urothelial carcinoma of bladder. Patient not had any abdominal surgeries but has stayed up-to-date on colonoscopy per his report. Past family history pertinent for father having abdominal aortic aneurysm On exam, patient appears uncomfortable, diaphoretic and holding his abdomen. Short shallow breath. Patient has significant tenderness in his abdomen. No pulsatile masses palpated. He has also in all extremities. Capillary refill intact in all extremities. Patient does have guarding and rebound tenderness, concerning for surgical abdomen. The patient sudden onset of pain and family history, primarily concerned for ruptured AAA and would like to bring patient immediately for imaging. Discussed this plan as well as my concerns with the patient and his . Reviewed the imaging, do not see any disruption of normal aortic blood flow, AAA or dissection. Concern at this time for ischemic bowel, appendicitis, diverticulitis primary intra-abdominal surgical pathology. Patient has remained n.p.o. He is required 2 doses of IV Dilaudid. Feels that his pain is adequately managed Contacted by Dr. Scott who has reviewed the CT imaging. He advises imaging consistent with acute appendicitis. I requested consultation with general surgery. Labs reviewed. No leukocytosis. Stable H&H. Lactate elevated at 1.8. BUN is slightly elevated at 21. Creatinine within normal limits. Glucose 253, this is baseline for the patient. Troponin within normal limits. Lipase within normal limits. Consulted with Dr. Nelson. She will come and evaluate the patient. Advised beginning him on Zosyn and obtaining COVID-19. Reviewed previous notes. Patient was seen by neurology on 07/02/2020. At that time, his myasthenia gravis showed significant improvement with IVIG but does wear off for approximately 1 month after receiving medication. Last received IVIG 2 weeks ago. Patient taken to the OR in stable condition with Dr. Nelson for appendectomy HPI General Mode of arrival: wheelchair . Date/Time Provider Initiated Documentation: 07/22/20 12:25 . Limitations to Documentation: no limitations . Information obtained by: patient, family (, Rosalva) and RN notes reviewed . History of Present Illness 70 year old M presents to the emergency department with the chief complaint of abdominal discomfort, described as severe, with intensity rated at 10. Quality is described as sharp and constant, and is localized to the abdomen. Patient reports no radiation. Patient started experiencing this hour(s) and it has been constant. No relieving factors improve symptom(s), No exacerbating factors reported . Patient notes diaphoresis; denies chest pain, cough, fever/chills, loss of appetite, nausea/vomiting, shortness of breath and weakness. Patient did receive the following treatments prior to arrival, none Related Data Home Medications Medication Instructions Recorded Confirmed Easy Touch Insulin Safety Syr #700 syringe 11/16/12 07/22/20 OneTouch Ultra Test #100 strip 11/16/12 07/22/20 levothyroxine 75 mcg capsule 75 mcg PO DAILY 11/09/17 07/22/20 sulfasalazine 500 mg tablet 1,500 mg PO BID tab 05/28/18 07/22/20 insulin lispro 100 unit/mL 10 - 15 unit SC TID ml 03/14/19 07/22/20 subcutaneous solution insulin NPH isoph U-100 human 100 5 unit SC DIRECTED ml 03/15/19 07/22/20 unit/mL subcutaneous suspension pyridostigmine bromide 60 mg tablet 120 mg PO QID #720 tab 10/13/19 07/22/20 lisinopril 20 mg tablet 20 mg PO HS #90 tab 11/20/19 07/22/20 insulin glargine 100 unit/mL 28 unit SUBCUT BID ml 01/19/20 07/22/20 subcutaneous solution amlodipine 10 mg tablet 10 mg PO DAILY #90 tab 03/15/20 07/22/20 aspirin 81 mg tablet,delayed 81 mg PO DAILY tab-cap 03/19/20 07/22/20 release mycophenolate mofetil 500 mg tablet 1,000 mg PO BID #360 tab 04/17/20 07/22/20 hydrochlorothiazide 25 mg tablet 25 mg PO DAILY tab 05/21/20 07/22/20 Previous Rx's Medication Instructions Recorded pyridostigmine bromide 60 mg tablet 120 mg PO QID #720 tab 10/13/19 lisinopril 20 mg tablet 20 mg PO HS #90 tab 11/20/19 amlodipine 10 mg tablet 10 mg PO DAILY #90 tab 03/15/20 mycophenolate mofetil 500 mg tablet 1,000 mg PO BID #360 tab 04/17/20 Allergies Allergy/AdvReac Type Severity Reaction Status Date / Time prednisone Allergy Severe severe Verified 07/22/20 12:50 dizziness, lightheaded and moderate SOB General GINNY: 2 Review of Systems Constitutional Constitutional: Reports as per HPI, Denies chills, Denies fatigue, Denies fever(s) and Denies headache(s) ENT Ears, Nose, Mouth, and Throat: Denies headache(s) Cardiovascular Cardiovascular: Reports as per HPI, Denies chest pain and Denies dyspnea Respiratory Respiratory: Reports as per HPI, Denies cough and Denies dyspnea Gastrointestinal Gastrointestinal: Reports as per HPI Genitourinary Genitourinary: Denies system reviewed and no additional complaints, except as documented (patient denies any change in urinary habits) Musculoskeletal Musculoskeletal: Reports as per HPI and Denies back pain Integumentary/Breasts Skin/Breast: Reports as per HPI and Denies rash Neurologic Neurologic: Reports as per HPI and Denies headache(s) Endocrine Endocrine: Denies fatigue [facility] Medical History (Updated 07/22/20 @ 14:55 by MAJO Trinidad) Colon polyps Crohn's disease Deviated nasal septum Diabetes GERD (gastroesophageal reflux disease) Herpes zoster HTN (hypertension) Hyperlipemia Mild nonproliferative diabetic retinopathy (03/09/10) Myasthenia gravis (11/02/12) 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; [employer] Do you feel safe in your relationship?: Yes Exam Const General: cooperative, uncomfortable, no acute distress, well developed, in distress moderate and ill appearing acutely Nutritional Appearance: average body habitus and well nourished Orientation: alert and awake HENMT Head: normal to inspection Mouth: moist mucous membranes Resp Effort & Inspection: normal respiratory effort, able to speak in complete sentences, no respiratory distress and tachypneic Auscultation: clear to auscultation bilaterally, no rales, no rhonchi and no wheezes Cardio Rate: regular rate Rhythm: regular rhythm Heart Sounds: S1 normal and S2 normal GI Inspection: normal to inspection, non-distended, no visible herniation, no visible pulsation and No visible peristalsis Palpation: guarding in the LLQ and in the RLQ, no hepatomegaly, no hernias, no masses, no pulsatile masses, not rigid, no splenomegaly, tender in the LLQ, in the RLQ and with rebound tenderness and No ascites Percussion: normal to percussion Auscultation: normal bowel sounds Back/Spine/Pelvis Back: no CVA tenderness Skin General skin exam: no rashes or lesions noted Trauma: no lacerations or abrasions Neuro General: patient alert and patient awake Cognition: normal cognition Speech: speech normal Extrem General: normal to inspection, capillary refill normal, no pedal edema, no calf tenderness and abnormal gait (weakness seconeary to pain, needed assistance to transfer) Psych Appearance: grossly normal and well kempt Mental Status: mental status grossly normal Speech and Movement: speech and movement normal
--- NOTE | 2020-07-22 12:30 | DI.CT_ITS ---
Exam(s) CT THORAX ABD/PEL CTA EXAM: CT THORAX ABD/PEL CTA TECHNIQUE: CT angiography of the chest, abdomen and pelvis was performed with bolus infusion of 100 cc of Omnipaque 350. Axial CT angiography was performed with multi-slice acquisition and multi-planar and/or 3D reconstruc tions. COMPARISON: CT CT thorax abd/pel CTA from 02/19/2018 FINDINGS: The lungs are clear. No pleural effusion. No evidence of pulmonary embolic disease. No thoracic aort ic dissection or aneurysm. Major branches of the thoracic aorta appear normal. No pleural effusion. No mediastinal or hilar adenopathy. Tracheobronchial tree appears intact. No focal hepatic or renal abnormality seen. Gallbladder and bile ducts are CT normal. Pancreas is unr emarkable. Spleen is unremarkable. No abdominal aortic aneurysm or dissection. Moderate calcified atheromatous plaque formation of the aorta noted. Major branches of the abdominal aorta appear normal. No abdominal or pelvic adenopathy. The appendix is thick-walled and dilated measuring up to about 15 millimeters in diameter. There is associated periappendiceal fat edema, the findings are highly suspicious for uncomplicated acute appe ndicitis. No significant abdominal wall hernia. No focal bowel pathology. IMPRESSION: No evidence of acute vascular abnormality of the chest, abdomen or pelvis. There are findings highly suggestive of acute appendicitis with no evidence of perforation or abscess formation. RADIATION DOSE DELIVERED: 989.77mGy.cm Total DLP 989.77mGy.cm Total DLP DATA REPOSITORY: All CT scans at this facility are submitted to the National Radiology Data Registry (NRDR) Dose Index Registry (DIR) with the [employer] (A[employer]). RADIATION OPTIMIZATION: All CT scans at this facility use at least one of these dose optimization te chniques: automated exposure control; mA and/or kV adjustment per patient size (includes targeted exa ms where dose is matched to clinical indication); or iterative reconstruction.
[2020-07-22] MEDS: HYDROmorphone 2 MG/ML VIAL 1 MG IVP ×2 (12:43→12:59)
[2020-07-22 12:48] LABS: Lactate 1.8 mmol/L (0.6-1.4)
[2020-07-22 12:50] LABS: Abs Immature Grans 0.03 10^3/uL (0.0-0.06); Absolute Basophil Count 0.04 10^3/uL (0.0-0.2); Absolute Eosinophil Count 0.05 10^3/uL (0.0-0.7); Absolute Lymphocyte Count 1.05 10^3/uL (1.2-3.4); Absolute Neutrophil Count 6.48 10^3/uL (1.2-6.7); Basophils % 0.5; Eosinophils % 0.6; HCT 39.1 % (40.0-50.0); HGB 12.9 g/dL (13.5-17.5); Immature Grans % 0.4; Lymphocytes % 12.4; MCH 30.3 pg (27.0-33.0); MCV 91.8 fL (80-95); MPV 10.6 fL (8.0-11.0); Monocytes % 9.5; Neutrophils % 76.6; Nucleated RBC 0 %; Platelet Count 227 10^3/uL (130-400); RBC 4.26 10^6/uL (4.36-5.78); RDW 12.8 % (11.8-14.1); RDW-SD 42.7 fL; WBC 8.45 10^3/uL (4.4-10.8)
[2020-07-22] MEDS: Normal Saline 1,000 ML 500 ML IV (13:04)
[2020-07-22 13:09] LABS: ALT 45 U/L (16-63); AST 41 U/L (15-37); Albumin 3.4 g/dL (3.4-5.0); Alkaline Phosphatase 66 U/L (46-116); Anion Gap 8.8 mmol/L (3-11); BUN 21 mg/dL (7-18); Bilirubin, Total 0.4 mg/dL (0.2-1.0); CO2 28.2 mmol/L (21.0-32.0); CREATININE 1.3 mg/dL (0.70-1.30); Calcium 8.8 mg/dL (8.5-10.1); Chloride 101 mmol/L (98-107); Estimated GFR 54.26 (mL/min/1.73m2); Glucose 253 mg/dL (74-106); Lipase 136 U/L (73-393); Magnesium 1.8 mg/dL (1.8-2.4); Potassium 3.5 mmol/L (3.5-5.1); Sodium 138 mmol/L (136-145); Total Protein 8.6 g/dL (6.4-8.2); Troponin I < 0.05 ng/mL (<0.06)
[2020-07-22] MEDS: Omnipaque 350 MG/ML 100 ML BTL IV (13:18)
[2020-07-22] MEDS: Normal Saline - Diluent 50 ML VIAL IV (13:18)
[2020-07-22] MEDS: ACETAMINOPHEN 1,000 MG/100 ML BTL 400 MG IVPB (13:26)
[2020-07-22] MEDS: PIPERACILLIN/TAZO 3.375 GM in Normal Saline 50 ML IVPB (13:42)
[2020-07-22 13:43] LABS: Source Nasal/Nares
--- NOTE | 2020-07-22 14:11 | HPE_ITS ---
Date of service: 07/22/20 Time of Service: 14:11 Assessment and Plan Assessment and plan (1) Acute appendicitis: Status: Acute Assessment and plan: 70-year-old male who presented to the emergency department with abdominal pain since yesterday evening. The pain was crampy in nature at first. The pain then became worse at around 10:00 in the morning. He was brought to the emergency department by his . Work-up in the emergency department included labs and CT scan chest abdomen pelvis. Labs showed a normal white count and normal hemoglobin/hematocrit. CT scan showed a dilated appendix with some fat stranding. No signs of perforation or abscess. On exam the patient is tender in the right lower quadrant as well as the left lower quadrant. Risks benefits and complications of laparoscopic procedure versus antibiotic treatment alone were reviewed with the patient. We elected to proceed with la paroscopic appendectomy. Risks benefits and complications of laparoscopic appendectomy were reviewed. Complications include but are not limited to bleeding, infection, injury to urinary bladder, ureter, small bowel, large bowel and vessels, leak from the staple line with need for further surgery. Other complications include heart attack, stroke, hypertension and adverse reaction to the medications. His questions were entertained and answered to his satisfaction and he wished to proceed. No guarantees were given or implied. Plan is for admission after surgery with discharge in the morning. 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 At that time is was crampy in nature. This morning the pain was about the same until about 10 am when the pain became much worse and his brought him in to the ER.? ? Denies any nausea vomiting.? No bowel movement today.? Pain does not radiate.? He was holding area just below the umbilicus, and was diaphoretic.? Past medical history pertinent for Crohn's disease, diabetes, GERD, hy pertension,hyperlipidemia, myasthenia gravis and urothelial carcinoma of bladder.? Patient has not had any abdominal surgeries but has stayed up-to-date on colonoscopy per his report.? Past family history pertinent for father having abdominal aortic aneurysm. Labs and CT scan done in the ER. Labs and CT scan reviewed. Labs showed no leukocytosis, hgb/hct within normal. CT scan revealed a dilated appendix with some fat stranding. No evidence of aneurysm. CT scan Chest/ABdomen and Pelvis FINDINGS: ?The lungs are clear. No pleural effusion. No evidence of pulmonary embolic disease. No thoracic aortic dissection or aneurysm. Major branches of the thoracic aorta appear normal.? No pleural effusion. No mediastinal or hilar adenopathy. Tracheobronchial tree appears intact. No focal hepatic or renal abnormality seen. Gallbladder and bile ducts are CT normal. Pancreas is unremarkable. Spleen is unremarkable. No abdominal aortic aneurysm or dissection.? Moderate calcified atheromatous plaque formation of the aorta noted.? Major branches of the abdominal aorta appear normal. No abdominal or pelvic adenopathy. The appendix is thick-walled and dilated measuring up to about 15 millimeters in diameter.? There is associated periappendiceal fat edema, the findings are highly suspicious for uncomplicated acute appendicitis.? No significant abdominal wall hernia. No focal bowel pathology. IMPRESSION: No evidence of acute vascular abnormality of the chest, abdomen or pelvis. There are findings highly suggestive of acute appendicitis with no evidence of perforation or abscess formation. Review of Systems Constitutional Constitutional: Denies fever(s), Denies headache(s), Denies night sweats, Reports poor appetite and Denies weight loss Eyes Eyes: Denies change in vision ENT Ears, Nose, Mouth, and Throat: Denies change in voice, Denies dysphagia and Denies headache(s) Cardiovascular Cardiovascular: Denies chest pain, Denies chest pain at rest, Denies irregular heart rhythm, Denies palpitations and Denies dyspnea Respiratory Respiratory: Denies cough and Denies dyspnea Gastrointestinal Gastrointestinal: Reports as per HPI, Reports system reviewed and no additional complaints, except as documented, Denies dysphagia, Denies dyspepsia and Denies heartburn Genitourinary Genitourinary: Reports system reviewed and no additional complaints, except as documented Musculoskeletal Musculoskeletal: Reports system reviewed and no additional complaints, except as documented Integumentary/Breasts Skin/Breast: Reports system reviewed and no additional complaints, except as documented Neurologic Neurologic: Reports system reviewed and no additional complaints, except as documented and Denies headache(s) Psychiatric Psychiatric: Reports system reviewed and no additional complaints, except as documented Endocrine Endocrine: Reports system reviewed and no additional complaints, except as documented and Denies palpitations Hematologic/Lymphatic Hematologic/Lymphatic: Reports system reviewed and no additional complaints, except as documented PFSH Medical History (Updated 07/22/20 @ 14:21 by Shahrzad Nelson MD) Colon polyps Crohn's disease Deviated nasal septum Diabetes GERD (gastroesophageal reflux disease) Herpes zoster HTN (hypertension) Hyperlipemia Mild nonproliferative diabetic retinopathy (03/09/10) Myasthenia gravis (11/02/12) 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; [employer] Do you feel safe in your relationship?: Yes Meds Allergies and Home Medications Allergies Allergy/AdvReac Type Severity Reaction Status Date / Time prednisone Allergy Severe severe Verified 07/22/20 12:50 dizziness, lightheaded and moderate SOB Home Medications Medication Instructions Recorded Confirmed Type Easy Touch Insulin Safety Syr #700 syringe 11/16/12 07/22/20 History OneTouch Ultra Test #100 strip 11/16/12 07/22/20 History levothyroxine 75 mcg capsule 75 mcg PO DAILY 11/09/17 07/22/20 History sulfasalazine 500 mg tablet 1,500 mg PO BID tab 05/28/18 07/22/20 History insulin lispro 100 unit/mL 10 - 15 unit SC TID ml 03/14/19 07/22/20 History subcutaneous solution insulin NPH isoph U-100 human 100 5 unit SC DIRECTED ml 03/15/19 07/22/20 History unit/mL subcutaneous suspension pyridostigmine bromide 60 mg tablet 120 mg PO QID #720 tab 10/13/19 07/22/20 Rx lisinopril 20 mg tablet 20 mg PO HS #90 tab 11/20/19 07/22/20 Rx insulin glargine 100 unit/mL 28 unit SUBCUT BID ml 01/19/20 07/22/20 History subcutaneous solution amlodipine 10 mg tablet 10 mg PO DAILY #90 tab 03/15/20 07/22/20 Rx aspirin 81 mg tablet,delayed 81 mg PO DAILY tab-cap 03/19/20 07/22/20 History release mycophenolate mofetil 500 mg tablet 1,000 mg PO BID #360 tab 04/17/20 07/22/20 Rx hydrochlorothiazide 25 mg tablet 25 mg PO DAILY tab 05/21/20 07/22/20 History Exam Const General: cooperative, comfortable and no acute distress Orientation: alert and oriented x3 HENMT Head: normocephalic and atraumatic Eyes Pupils: PERRL Resp Effort & Inspection: normal respiratory effort Auscultation: clear to auscultation bilaterally Cardio Rate: regular rate Rhythm: regular rhythm Heart Sounds: no gallops, no murmurs and no rubs GI Inspection: normal to inspection Palpation: soft, no hepatosplenomegaly and tender in the RLQ and at McBurney's point; with no rebound tenderness Auscultation: normal bowel sounds Results Labs Result diagrams: 07/22/20 12:38 07/22/20 12:38 Labs: Laboratory Results - last 24 hr 07/22/20 07/22/20 07/22/20 12:38 12:38 12:38 WBC 8.45 RBC 4.26 L Hgb 12.9 L Hct 39.1 L MCV 91.8 MCH 30.3 MCHC 33.0 RDW 12.8 Plt Count 227 MPV 10.6 Immature Gran % 0.4 Neutrophils % 76.6 Lymphocytes % 12.4 Monocytes % 9.5 Eosinophils % 0.6 Basophils % 0.5 Nucleated RBC % 0 Absolute Neutrophils 6.48 Absolute Lymphocytes 1.05 L Absolute Monocytes 0.80 Absolute Eosinophils 0.05 Absolute Basophils 0.04 VBG Lactate 1.8 H Sodium 138 Potassium 3.5 Chloride 101 Carbon Dioxide 28.2 Anion Gap 8.8 BUN 21 H Creatinine 1.3 Estimated GFR/1.73 m2 54.26 Glucose 253 H Calcium 8.8 Magnesium 1.8 Total Bilirubin 0.4 AST 41 H ALT 45 Alkaline Phosphatase 66 Troponin I < 0.05 Total Protein 8.6 H Albumin 3.4 Lipase 136 Urine Color Urine Clarity Urine pH Ur Specific [place] Urine Protein Urine Ketones Urine Blood Urine Nitrite Urine Bilirubin Urine Urobilinogen Ur Leukocyte Esterase Urine Glucose COVID-19 Source Patient ABO/Rh Antibody Screen 07/22/20 07/22/20 07/22/20 12:38 12:38 13:04 WBC RBC Hgb Hct MCV MCH MCHC RDW Plt Count MPV Immature Gran % Neutrophils % Lymphocytes % Monocytes % Eosinophils % Basophils % Nucleated RBC % Absolute Neutrophils Absolute Lymphocytes Absolute Monocytes Absolute Eosinophils Absolute Basophils VBG Lactate Sodium Potassium Chloride Carbon Dioxide Anion Gap BUN Creatinine Estimated GFR/1.73 m2 Glucose Calcium Magnesium Total Bilirubin AST ALT Alkaline Phosphatase Troponin I Cancelled Total Protein Albumin Lipase Urine Color Cancelled Urine Clarity Cancelled Urine pH Cancelled Ur Specific [place] Cancelled Urine Protein Cancelled Urine Ketones Cancelled Urine Blood Cancelled Urine Nitrite Cancelled Urine Bilirubin Cancelled Urine Urobilinogen Cancelled Ur Leukocyte Esterase Cancelled Urine Glucose Cancelled COVID-19 Source Patient ABO/Rh B Positive Antibody Screen Negative 07/22/20 07/22/20 13:30 15:32 WBC RBC Hgb Hct MCV MCH MCHC RDW Plt Count MPV Immature Gran % Neutrophils % Lymphocytes % Monocytes % Eosinophils % Basophils % Nucleated RBC % Absolute Neutrophils Absolute Lymphocytes Absolute Monocytes Absolute Eosinophils Absolute Basophils VBG Lactate Sodium Potassium Chloride Carbon Dioxide Anion Gap BUN Creatinine Estimated GFR/1.73 m2 Glucose Calcium Magnesium Total Bilirubin AST ALT Alkaline Phosphatase Troponin I Cancelled Total Protein Albumin Lipase Urine Color Urine Clarity Urine pH Ur Specific [place] Urine Protein Urine Ketones Urine Blood Urine Nitrite Urine Bilirubin Urine Urobilinogen Ur Leukocyte Esterase Urine Glucose COVID-19 Source Nasal/nares Patient ABO/Rh Antibody Screen Last Vital Signs Temp 97.7 F 07/22/20 13:26 Pulse 57 L 07/22/20 13:46 Resp 9 L 07/22/20 13:54 BP 172/65 H 07/22/20 13:46 Pulse Ox 99 07/22/20 13:54
[2020-07-22 14:24] LABS: COVID-19 PCR Negative (Negative)
--- NOTE | 2020-07-22 14:35 | ANES.PREOP_ITS ---
General Info Date of Service Date Performed: 07/22/20 Height: 6 ft Weight: 95.254 kg Body Mass Index (BMI): 28.5 Surgical Procedure: Operation Date: 07/22/20 15:10 Proposed Procedures Side Surgeon p Appendectomy Laparoscopic Shahrzad Nelson MD Meds Allergies and Home Medications Allergies Allergy/AdvReac Type Severity Reaction Status Date / Time prednisone Allergy Severe severe Verified 07/22/20 12:50 dizziness, lightheaded and moderate SOB Home Medication Medication Instructions Recorded Easy Touch Insulin Safety Syr #700 syringe 11/16/12 OneTouch Ultra Test #100 strip 11/16/12 levothyroxine 75 mcg capsule 75 mcg PO DAILY 11/09/17 sulfasalazine 500 mg tablet 1,500 mg PO BID tab 05/28/18 insulin lispro 100 unit/mL 10 - 15 unit SC TID ml 03/14/19 subcutaneous solution insulin NPH isoph U-100 human 100 5 unit SC DIRECTED ml 03/15/19 unit/mL subcutaneous suspension pyridostigmine bromide 60 mg tablet 120 mg PO QID #720 tab 10/13/19 lisinopril 20 mg tablet 20 mg PO HS #90 tab 11/20/19 insulin glargine 100 unit/mL 28 unit SUBCUT BID ml 01/19/20 subcutaneous solution amlodipine 10 mg tablet 10 mg PO DAILY #90 tab 03/15/20 aspirin 81 mg tablet,delayed 81 mg PO DAILY tab-cap 03/19/20 release mycophenolate mofetil 500 mg tablet 1,000 mg PO BID #360 tab 04/17/20 hydrochlorothiazide 25 mg tablet 25 mg PO DAILY tab 05/21/20 Current Visit Medications: Current Medications Generic Name Dose Route Start Last Admin Trade Name Freq PRN Reason Stop Dose Admin Acetaminophen 650 mg 07/22/20 14:26 Acetaminophen 325 Mg Tab PO Q6H PRN PRN Pain Al Hydrox/Mg Hydrox/Simethicone 30 ml 07/22/20 14:26 Mylanta Suspension 30 Ml Cup PO Q4H PRN PRN Amlodipine Besylate 10 mg 07/23/20 08:30 Amlodipine 10 Mg Tab PO DAILY [facility] Hydrochlorothiazide 25 mg 07/23/20 08:30 Hydrochlorothiazide 25 Mg Tab PO DAILY [facility] Sodium Chloride 500 mls @ 0 mls/hr 07/22/20 12:32 Saline 500ml Bag IV PRN PRN As Directed Sodium Chloride 1,000 mls @ 500 mls/hr 07/22/20 12:56 07/22/20 13:04 Saline 1000ml Bag IV 07/22/20 14:55 500 mls/hr BOLUS ONE Administration Ringer's Solution 1,000 mls @ 75 mls/hr 07/22/20 14:30 IV INFUSION [facility] IV Miscellaneous Supplies 1 each 07/22/20 12:45 Iv Access IV DIRECTED [facility] IV Miscellaneous Supplies 1 each 07/22/20 14:30 Iv Access IV DIRECTED [facility] Iohexol 100 ml 07/22/20 13:30 07/22/20 13:18 Omnipaque 350 Mg/Ml 100 Ml Btl IV 08/21/20 23:59 100 ml DIRECTED [facility] Administration Ketorolac Tromethamine 15 mg 07/22/20 14:00 Ketorolac 15 Mg/Ml Vial IVP 07/27/20 13:59 Q6H [place] Lisinopril 20 mg 07/22/20 22:00 Lisinopril 20 Mg Tab PO HS [facility] Mycophenolate Mofetil 1,000 mg 07/22/20 20:00 Mycophenolate Mofetil 500 Mg Tab PO BID [facility] Non-Formulary Medication 75 mcg 07/23/20 08:30 Levothyroxine PO DAILY [facility] Ondansetron HCl 0 mg 07/22/20 14:26 Ondansetron 4 Mg/2 Ml Vial IVP Q4H PRN PRN Pyridostigmine [place] 120 mg 07/22/20 16:00 Pyridostigmine 60 Mg Tab PO QID [facility] Simethicone 80 mg 07/22/20 14:26 Simethicone 80 Mg Chew PO Q4H PRN PRN Sodium Chloride 0 ml 07/22/20 12:32 Normal Saline Flush 10 Ml Syr IVP PRN PRN Sodium Chloride 50 ml 07/22/20 13:30 07/22/20 13:18 Normal Saline - Diluent 50 Ml Vial IV 50 ml .FOR DI USE [facility] Administration Sulfasalazine 1,500 mg 07/22/20 20:00 Sulfasalazine 500 Mg Tab PO BID [facility] Tramadol HCl 50 mg 07/22/20 14:26 Tramadol 50 Mg Tab PO Q6H PRN PRN Pain PFSH Active Problems Active Problems: Problem Status Onset Code Herpes zoster B02.9 Ventricular quadrigeminy I49.3 Colon polyps K63.5 Mild nonproliferative diabetic retinopathy 03/09/10 E11.3299 Status post inguinal hernia repair Z98.890, Z87.19 Urothelial carcinoma of bladder ~03/08/18 C67.9 Deviated nasal septum J34.2 Abnormal CPK 11/16/13 R74.8 Unilateral inguinal hernia 01/29/87 K40.90 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 03/09/10 E11.39 Type 1 diabetes mellitus without complication 08/07/17 E10.9 Myasthenia gravis 11/02/12 G70.00 Hyperlipidemia E78.5 Gastroesophageal reflux disease with esophagitis K21.0 Essential hypertension I10 Crohn's disease K50.90 Acute ulcerative colitis K51.90 Medical History Medical History (Updated 07/22/20 @ 14:55 by MAJO [place]) Colon polyps Crohn's disease Deviated nasal septum Diabetes GERD (gastroesophageal reflux disease) Herpes zoster HTN (hypertension) Hyperlipemia Mild nonproliferative diabetic retinopathy (03/09/10) Myasthenia gravis (11/02/12) 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 MADRID- Ventricular quadrigeminy Surgical History Surgical History (Updated 07/22/20 @ 14:21 by Shahrzad Nelson MD) History of cataract surgery Incision & Drainage, Abscess or Hematoma (07/29/16) perianal abscess S/P cystoscopy S/P skin cancer resection face 2017 Status post inguinal hernia repair left and right Tobacco Smoking/Tobacco Use Status: Former Tobacco Use Alcohol Alcohol Intake: never Substance Use Substance use: Never Substance use type: does not use Vital Signs and Lab Results Vital Signs Most Recent Vital Signs in EMR: Most Recent Vital Signs Temp Pulse Resp BP Pulse Ox 36.4 C L 54 L 18 159/72 H 99 07/22/20 14:28 07/22/20 14:28 07/22/20 14:28 07/22/20 14:28 07/22/20 14:28 Point of Care Results Point of Care Results: Finger Stick Blood Glucose 220 07/22/20 14:26 Lab Results Result Diagrams: 07/22/20 12:38 07/22/20 12:38 Blood Type / Crossmatch: Patient ABO/Rh B Positive 07/22/20 12:38 07/22/20 Antibody Screen Negative 07/22/20 12:38 07/22/20 Complete Blood Count: White Blood Count 8.45 10^3/uL (4.4-10.8) 07/22/20 12:38 07/22/20 Red Blood Count 4.26 10^6/uL (4.36-5.78) L 07/22/20 12:38 07/22/20 Hemoglobin 12.9 g/dL (13.5-17.5) L 07/22/20 12:38 07/22/20 Hematocrit 39.1 % (40.0-50.0) L 07/22/20 12:38 07/22/20 Platelet Count 227 10^3/uL (130-400) 07/22/20 12:38 07/22/20 Complete Metabolic Panel: Sodium Level 138 mmol/L (136-145) 07/22/20 12:38 07/22/20 Potassium Level 3.5 mmol/L (3.5-5.1) 07/22/20 12:38 07/22/20 Chloride Level 101 mmol/L (98-107) 07/22/20 12:38 07/22/20 Carbon Dioxide Level 28.2 mmol/L (21.0-32.0) 07/22/20 12:38 07/22/20 Blood Urea Nitrogen 21 mg/dL (7-18) H 07/22/20 12:38 07/22/20 Creatinine 1.3 mg/dL (0.70-1.30) 07/22/20 12:38 07/22/20 Magnesium Level 1.8 mg/dL (1.8-2.4) 07/22/20 12:38 07/22/20 Calcium Level 8.8 mg/dL (8.5-10.1) 07/22/20 12:38 07/22/20 Albumin 3.4 g/dL (3.4-5.0) 07/22/20 12:38 07/22/20 Glucose Level 253 mg/dL (74-106) H 07/22/20 12:38 07/22/20 Liver Function Panel: Alanine Aminotransferase (ALT/SGPT) 45 U/L (16-63) 07/22/20 12:38 07/22/20 Aspartate Amino Transf (AST/SGOT) 41 U/L (15-37) H 07/22/20 12:38 07/22/20 Coagulation Panel: No Data to Display Cardiac Panel: Troponin I < 0.05 ng/mL (<0.06) 07/22/20 12:38 07/22/20 Arterial Blood Gas: No Data to Display Venous Blood Gas: Venous Blood Lactate 1.8 mmol/L (0.6-1.4) H 07/22/20 12:38 07/22/20 Pancreas Panel: Lipase 136 U/L (73-393) 07/22/20 12:38 07/22/20 Thyroid Panel: No Data to Display Infectious Disease: Coronavirus (COVID-19)(PCR) Negative (Negative) 07/22/20 13:30 07/22/20 Coronavirus 2019 Source Nasal/nares 07/22/20 13:30 07/22/20 Blood Cultures: No Data to Display Toxicology Panel: No Data to Display Imaging and Studies Imaging and Studies EKG Summary: 07/22/20 Sinus bradycardia...rate< 60. Anesthesia Assessment and Plan Anesthesia History Personal History: No History of Anesthesia Complications Family History: No Family History of Anesthesia Complications Exercise Tolerance Exercise Tolerance: Metabolic Equivalents>4 Pertinent Negatives Pertinent Negatives: No Symptoms of GERD, No Major Cardiovascular Symptoms or Complaints, No Major Pulmonary Symptoms or Complaints (+snores ) and No History of CVA/TIA Cardiac & Pulmonary Exam Cardiac Exam: Normal S1/S2 Heart Sounds Pulmonary Exam: Clear Bilateral Breath Sounds Airway Exam Known Difficult Airway: No Mallampati Class: 1 Mouth Opening: Normal (> 3cm) Thyromental Distance: Greater than 3 cm Neck Range of Motion: Full ROM Neck Circumference: Thick Teeth Condition: Normal Dentition ASA Classification ASA Score: ASA 3 Emergency Case?: Yes NPO Status NPO Status: NPO Clears >2 hours, Solids >8 hours Anesthesia Plan Resuscitation Status: Full Code Anesthesia Technique: General Anesthesia Airway Planned: Endotracheal Tube Monitors Used: Standard Monitors
[2020-07-22] MEDS: Lactated Ringers 1,000 ML 75 ML IV (15:00)
[2020-07-22] MEDS: Bupivacaine 0.25% Pres-Free 30 ML VIAL (15:30)
--- NOTE | 2020-07-22 15:30 | APP_PTH ---
PATIENT: Guillermo Hines LOC: U#:[id number] AGE/SX: 70/M ROOM: 215 RE07/22/[address]: Shahrzad Nelson MD : [id number] BED: A DIS: 07/23/2020 SPEC #: [id number] RECD: 07/23/20 09:05 STATUS: SOUT REQ #: [id number] KITTY: 07/22/20 15:[address]: Shahrzad Nelson DEPT: Surgical Specimen RECD BY: Mickie Shea ENTERED: 07/23/20 09:08 SP TYPE: Appendix OTHR DR: Dilan Carbajal DO Tissues: 1 - APPENDIX NOT INCIDENTAL Procedures: GROSS AND MICRO LEVEL 3 Comments: [id number]
--- NOTE | 2020-07-22 15:50 | ROE_ITS ---
Date of service: 07/22/20 Time of Service: 15:50 Operative Note Operative Note DATE OF PROCEDURE: 07/22/20 PRE-OP DIAGNOSIS: Acute appendicitis POST-OP DIAGNOSIS: same PROCEDURE: Laparoscopic Appendectomy SURGEON: Shahrzad Nelson TRAINING AND DEVELOPMENT OFFICER: Van Ignacio ANESTHESIA TYPE: Local By Surgeon and General LMA/ETT (ASA 2/ Rosalina Monae CRNA) Refer to Anesthesia Record ESTIMATED BLOOD LOSS: 25 PATHOLOGY: other (Appendix) COMPLICATIONS: None Patient was transported to: PACU Patient's condition: stable Implants: None Indications: Mr. Hines is a 70-year-old gentleman who came into the emergency department today with abdominal pain for a little bit over [address] scan were done. His labs were within normal. CT scan showed a dilated appendix with some periappendiceal fat stranding. Risks benefits and complications of laparoscopic appendectomy were reviewed with him and he wished to proceed. No guarantees were given or implied. Findings: Dilated appendix with inflammatory fluid in the pelvis and right gutter. No signs of rupture. Procedure Description: After informed consent was obtained the patient was taken to the operating room placed in the supine position, SCDs were applied as well as monitors. A timeout was done. The patient was then placed under general anesthesia and intubated without any difficulty. Next a Posey catheter was placed in a standard surgical fashion. Next the abdominal hair was clipped. At this point the abdomen was prepped and draped in a sterile surgical fashion with chlorhexidine. A second timeout was done and the patient's name, date of , operation to be performed, DVT prophylaxis, antibiotic given, and fire risk was assessed. Exparel was mixed 50-50 with 0.25% Bupivocaine. The mixture was injected into the dermis just below the umbilicus. A small 5 mm incision was made with an 11 blade. The skin was grasped with penetrating towel clamps on either side of the incision and then using a Visiport a 5 mm port was placed under direct visualization into the abdomen. The abdomen was insufflated. The small bowel under the port was inspected. No injuries were noted. Local anesthetic was then injected just above the pubic symphysis just to the right of midline. A small 5 mm incision was made with an 11 blade and another 5 mm port was placed under direct visualization into the abdomen. The local anesthetic was then injected in the left lower quadrant area and a 12 mm incision was made with an 11 blade. A 12 mm port was then placed under direct visualization. The patient's bed was then rotated to the left and head down allowing me to sweep of the small bowel out of the right lower quadrant. The cecum was gently grasped and the appendix was identified. The appendix looked inflammed and thickened at the tip. No purulent fluid was noted. The appendix was grasped at the neck and pulled up slightly allowing me to visualize the junction with the cecum. Using the laparoscopic LigaSure the mesoappendix was slowly transected. Using a laparoscopic straight stapler the appendix was then transected at the junction with the cecum. The appendix was placed into an Endo Catch bag and removed thro ugh the 12 mm port site. The port was placed back into the abdomen and the staple line was identified. No bleeding was noted. The transected mesentery was identified and no bleeding was noted. The abdominal cavity was irrigated with 1000 cc of warm normal saline and suctioned out. The effluent was clear by the end. The 2 5 mm ports were then removed under direct visualization and no bleeding was noted from the fascia. The insufflation was stopped and the 12 mm port was removed. The 12 mm port site fascia was closed with a 0 Vicryl [id number] suture. The skin was then closed with 4-0 Vicryl. The skin was cleaned and dried and skin affix was applied. The patient was woken up, extubated and taken back to recovery room in stable condition. There were no immediate complications. Sponge, instrument and needle counts were correct at the end of the case x2.
--- NOTE | 2020-07-22 16:02 | W.ANESPOSTOP ---
Postoperative Evaluation Date, Time and Location Date Performed: 07/22/20 Time Performed: 16:03 Patient Location: PACU Vital Signs Most Recent Imported Vital Signs: Most Recent Vital Signs Temp Pulse Resp BP Pulse Ox 36.4 C L 70 15 156/67 H 96 07/22/20 14:28 07/22/20 15:55 07/22/20 15:55 07/22/20 15:55 07/22/20 15:55 Pain Score Most Recent Pain Score: Most Recent Pain Score Pain Level 0 07/22/20 15:55 Assessment Mental Status: Arousable with meaningful communication Airway and Respiratory Function: Patent airway with normal (patient baseline) respiratory exam Cardiovascular Function: Hemodynamically Stable Hydration Status: Adequately Hydrated Nausea & Vomiting: No Nausea or Vomiting Pain: Pt. Denies Any Pain Peripheral Nerve Block: Patient did not receive a nerve block
--- NOTE | 2020-07-22 18:04 | NUR.NOTE ---
Nursing Note: 1618 patient arrived to floor via stretcher bed from PACU. transferred to regular bed via hover mat. report given by OR nurse.
--- NOTE | 2020-07-22 18:57 | NUR.NOTE ---
Nursing Note: patient was nauseous shortly after arrival- сергей said lexy was taken out after 1500. could not find documentation of it. patient's nausea was relieved by throwing up. patient was still congested- waited until 1830 for nasal spray. by the time RN went into room with it, patient felt better.
[2020-07-22] MEDS: Ketorolac 15 MG/ML VIAL IVP (19:59)
[2020-07-22] MEDS: Normal Saline Flush 10 ML SYR IVP (20:00)
[2020-07-22] MEDS: Lisinopril 20 MG TAB PO (21:04)
[2020-07-22] MEDS: sulfaSALAzine 500 MG TAB 1500 MG PO (21:04)
[2020-07-22] MEDS: Mylanta Suspension 30 ML CUP PO (23:19)
[2020-07-23] MEDS: Normal Saline Flush 10 ML SYR IVP ×2 (01:33→08:16)
[2020-07-23] MEDS: Ketorolac 15 MG/ML VIAL IVP (01:33)
[2020-07-23] MEDS: Levothyroxine 75 MCG TAB PO (06:03)
--- NOTE | 2020-07-23 06:40 | DSE_ITS ---
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 Hines is a pleasant 70 year old male who was seen in the ER yesterday with abdominal pain for just over [address] scan revealed an enlarged appendix with fat stranding. His WBC count was normal. He underwent uncomplicated Laparoscopic appendectomy. He had a small amount of emeis right after surgery. Since then he has been able to tolerate a diet. he is afebrile. He will be discharged to home. No antibiotics needed. He has not needed any pain medications. Will discharge on tylenol as needed. Home Meds and New Rx's Prescriptions: Continued levothyroxine 75 mcg capsule 75 mcg PO DAILY RF: 0 sulfasalazine 500 mg tablet 1,500 mg PO BID RF: 0 insulin lispro [Humalog U-100 Insulin] 100 unit/mL solution 10 - 15 unit SC TID RF: 0 pyridostigmine bromide [Mestinon] 60 mg tablet 120 mg PO QID Qty: 720 RF: 3 hydrochlorothiazide 25 mg tablet 25 mg PO DAILY RF: 0 Lantus U-100 Insulin 100 unit/mL solution 28 unit subcut BID RF: 0 (DME) OneTouch Ultra Test 1 EACH strip 1 ea Miscellaneous 5X DAILY Qty: 100 RF: 0 (DME) Easy Touch Insulin Safety Syr 1 EACH syringe 1 ea SQ DIRECTED Qty: 700 RF: 4 Humulin N NPH U-100 Insulin 100 unit/mL suspension 5 unit SC DIRECTED RF: 0 lisinopril 20 mg tablet 20 mg PO HS Qty: 90 RF: 3 amlodipine 10 mg tablet 10 mg PO DAILY Qty: 90 RF: 3 aspirin [Aspir-81] 81 mg tablet,delayed release (DR/EC) 81 mg PO DAILY RF: 0 mycophenolate mofetil 500 mg tablet 1,000 mg PO BID Qty: 360 RF: 3 Discharge Instructions Instructions: Laparoscopic Appendectomy (DC) Additional Instructions: Activity at Home after surgery: 1. Make sure you walk outside at least 4 times per day 2. You should be able to climb a flight of stairs 3. No driving while in pain or taking pain medications 4. No strenuous activity or heavy lifting for 2 weeks (laparoscopic surgery) Diet, Nutrition, & wound healin. Avoid alcohol until after you are recovered from your surgery 2. Make sure to eat plenty of lean protein (meat, fish, eggs, cottage cheese, beans) 3. Eat a variety of fruits and vegetables. Eat plenty of high fiber foods to avoid constipation. 4. Drink plenty of liquids to stay hydrated and avoid constipation Pain Medications: 1. Tylenol 650mg every 6 hours as needed and Ibuprofen 600 mg every 6 hours as needed. You may alternate between the 2 medications every 3 hours 2. If a narcotic has been prescribed take as directed only for breakthrough pain For Constipation: 1. Take Milk of Magnesia or MiraLax as needed for constipation Other: 1. You may shower daily. Do not scrub the incisions 2. Do not soak the incisions for 1 week 3. You may alternate ice and heat as needed for pain and swelling Wound Care: 1. Keep the incisions clean and dry Please call our office if you develop: 1. Fevers >101.5 2. Nausea or Vomiting 3. Worsening pain 4. Redness and thick discharge from the wounds If after hours please call the Hospital at and ask to speak to the on-call surgeon Stand Alone Forms: Nursing Discharge Form Referrals: Shahrzad Nelson MD [ [facility] STAFF PHYSICIAN] - 08/03/20 9:00 am Activity:: see above Equipment/Supplies:: No Equipment Needed Diet:: As Tolerated Discharge Orders Discharge Orders: Discharge Order (Routine); Ordered 07/23/20 Ordered By: Shahrzad Nelson DS: Summary Time Spent with Patient providing and/or coordinating discharge services: Less than 30 minutes Status at Discharge Functional status at discharge: independent ambulation Overall status at discharge: patient is progressing back to baseline Mental Status: mental status grossly normal Speech and Movement: speech and movement normal Mood: congruent mood Affect: normal affect Exam Const General: cooperative, comfortable and no acute distress Orientation: alert and oriented x3 HENMT Head: normocephalic and atraumatic Resp Effort & Inspection: normal respiratory effort Auscultation: clear to auscultation bilaterally Cardio Rate: regular rate Rhythm: regular rhythm Heart Sounds: no gallops, no murmurs and no rubs GI Inspection: incision (c/d/i. Bruising noted around incisions) Palpation: soft, no hepatosplenomegaly and tender (appropriately tender around the incisions) Auscultation: normal bowel sounds Psych Mental Status: mental status grossly normal Speech and Movement: speech and movement normal Mood: congruent mood Affect: normal affect DS: Data Vitals/I&O Vitals and I&O: Vital Signs Temperature 97.2 F L 07/22/20 23:26 Temperature Source Tympanic 07/22/20 23:26 Pulse 84 07/22/20 23:26 Pulse Rhythm Regular 07/23/20 05:07 Respiratory Rate 18 07/22/20 23:26 Respiratory Effort Non-Labored 07/23/20 05:07 Respiratory Depth Normal 07/23/20 05:07 Respiratory Pattern Normal 07/23/20 05:07 Blood Pressure 160/72 H 07/22/20 23:26 Blood Pressure Position Sitting 07/22/20 12:29 Pulse Oximetry 96 07/22/20 23:26 Respiratory End-tidal CO2 42 07/22/20 15:55 Oxygen Delivery Method Room Air 07/22/20 23:26 Oxygen Flow Rate 0 07/22/20 23:26 Pain Level 0 07/22/20 23:26 Comment 07/22/20 16:26 Intake & Output 07/22/20 07/22/20 07/23/20 11:59 23:59 11:59 Intake Total 1731.25 / 1731.25 Output Total 550 / 550 350 / 350 Balance 1181.25 / 1181.25 -350 / -350 Weight 210 lb Intake: IV 1001.25 / 1001.25 Oral 730 / 730 Output: Urine 500 / 500 350 / 350 Emesis 50 / 50 Other: Urine Color Pale Yellow Yellow Straw Urine Appearance Clear Clear Urine Odor Normal Normal Emesis Description Clear/Water Voiding Methods Urinal Urinal Data Completed and Pending Labs on day of discharge: Labs from last 24 hours 07/22/20 07/22/20 07/22/20 15:32 13:30 13:04 WBC RBC Hgb Hct MCV MCH MCHC RDW Plt Count MPV Immature Gran % Neutrophils % Lymphocytes % Monocytes % Eosinophils % Basophils % Nucleated RBC % Absolute Neutrophils Absolute Lymphocytes Absolute Monocytes Absolute Eosinophils Absolute Basophils VBG Lactate Sodium Potassium Chloride Carbon Dioxide Anion Gap BUN Creatinine Estimated GFR/1.73 m2 Glucose Calcium Magnesium Total Bilirubin AST ALT Alkaline Phosphatase Troponin I Cancelled Total Protein Albumin Lipase Urine Color Cancelled Urine Clarity Cancelled Urine pH Cancelled Ur Specific [place] Cancelled Urine Protein Cancelled Urine Ketones Cancelled Urine Blood Cancelled Urine Nitrite Cancelled Urine Bilirubin Cancelled Urine Urobilinogen Cancelled Ur Leukocyte Esterase Cancelled Urine Glucose Cancelled COVID-19 Source Nasal/nares SARS-CoV-2 (PCR) Negative Patient ABO/Rh Antibody Screen 07/22/20 07/22/20 07/22/20 12:38 12:38 12:38 WBC 8.45 RBC 4.26 L Hgb 12.9 L Hct 39.1 L MCV 91.8 MCH 30.3 MCHC 33.0 RDW 12.8 Plt Count 227 MPV 10.6 Immature Gran % 0.4 Neutrophils % 76.6 Lymphocytes % 12.4 Monocytes % 9.5 Eosinophils % 0.6 Basophils % 0.5 Nucleated RBC % 0 Absolute Neutrophils 6.48 Absolute Lymphocytes 1.05 L Absolute Monocytes 0.80 Absolute Eosinophils 0.05 Absolute Basophils 0.04 VBG Lactate Sodium Potassium Chloride Carbon Dioxide Anion Gap BUN Creatinine Estimated GFR/1.73 m2 Glucose Calcium Magnesium Total Bilirubin AST ALT Alkaline Phosphatase Troponin I Cancelled Total Protein Albumin Lipase Urine Color Urine Clarity Urine pH Ur Specific [place] Urine Protein Urine Ketones Urine Blood Urine Nitrite Urine Bilirubin Urine Urobilinogen Ur Leukocyte Esterase Urine Glucose COVID-19 Source SARS-CoV-2 (PCR) Patient ABO/Rh B Positive Antibody Screen Negative 07/22/20 07/22/20 12:38 12:38 WBC RBC Hgb Hct MCV MCH MCHC RDW Plt Count MPV Immature Gran % Neutrophils % Lymphocytes % Monocytes % Eosinophils % Basophils % Nucleated RBC % Absolute Neutrophils Absolute Lymphocytes Absolute Monocytes Absolute Eosinophils Absolute Basophils VBG Lactate 1.8 H Sodium 138 Potassium 3.5 Chloride 101 Carbon Dioxide 28.2 Anion Gap 8.8 BUN 21 H Creatinine 1.3 Estimated GFR/1.73 m2 54.26 Glucose 253 H Calcium 8.8 Magnesium 1.8 Total Bilirubin 0.4 AST 41 H ALT 45 Alkaline Phosphatase 66 Troponin I < 0.05 Total Protein 8.6 H Albumin 3.4 Lipase 136 Urine Color Urine Clarity Urine pH Ur Specific [place] Urine Protein Urine Ketones Urine Blood Urine Nitrite Urine Bilirubin Urine Urobilinogen Ur Leukocyte Esterase Urine Glucose COVID-19 Source SARS-CoV-2 (PCR) Patient ABO/Rh Antibody Screen [facility] Medical History Colon polyps Crohn's disease Deviated nasal septum Diabetes GERD (gastroesophageal reflux disease) Herpes zoster HTN (hypertension) Hyperlipemia Mild nonproliferative diabetic retinopathy (03/09/10) Myasthenia gravis (11/02/12) 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
[2020-07-23 07:42] VITALS: BP 139/67; PULSE 74; RESP 18; TEMP 36.9; O2SAT 96
[2020-07-23] MEDS: hydroCHLOROthiazide 25 MG TAB PO (08:16)
== END 2020-07-23 09:30 | disposition home or self-care (01) ==
LOC: ER 14:55 → SUR 15:08 → MS 16:14
PROVIDERS: Admitting Provider Surgery; Emergency Provider Physician Assistant; PCP Emergency Medicine; Visit Provider Surgery
PROC: 0DTJ4ZZ Resection of Appendix, Percutaneous Endoscopic Approach (ICD-10-PCS; CPT 44970; principal; 2020-07-22 15:10)
DX: K35.30 Acute appendicitis with localized peritonitis, without perforation or gangrene (principal); E11.39 Type 2 diabetes mellitus with other diabetic ophthalmic complication; K50.90 Crohn's disease, unspecified, without complications; I10 Essential (primary) hypertension; K21.00 Gastro-esophageal reflux disease with esophagitis, without bleeding; G70.00 Myasthenia gravis without (acute) exacerbation; Z20.822 Contact with and (suspected) exposure to COVID-19
CPT/HCPCS: 44970; 36415; 36416; 71275; 74177; 80053; 82962; 83690; 86850; 86900; 86901; 87635; 93005; 96361; 96365; 96368; 96375; 99220; 99285; 81003; 83605; 83735; 84484; 85025; 88304; 93010; G0378; J0131; J1885; J2001; J2405; J2543; J2704; J3010; J3490; J7517

== ENCOUNTER → 2020-08-03 08:58 | Outpatient (BNVA) | payer MEDICARE, BC, SELFPAY | PROVIDERS: PCP Emergency Medicine; Referring Provider Emergency Medicine; Visit Provider Surgery | DX: Z48.815 Encounter for surgical aftercare following surgery on the digestive system (principal); Z90.49 Acquired absence of other specified parts of digestive tract ==

== ENCOUNTER 2020-08-09 02:33 | Outpatient (RCR) | payer MEDICARE, BC, SELFPAY ==
[2020-07-31 00:03] VITALS: BP 175/83; PULSE 57; RESP 16; TEMP 36.7
[2020-08-07] MEDS: Normal Saline Flush 10 ML SYR IVP (08:09)
[2020-08-07 08:10] VITALS: BP 154/78; PULSE 71; RESP 18; TEMP 36.7; O2SAT 98
[2020-08-07] MEDS: IMMUNE GLOBULIN 5 GM/50 ML BTL IV (08:14)
[2020-08-07 08:30] VITALS: BP 129/68; PULSE 62; RESP 16; TEMP 37; O2SAT 97
[2020-08-07] MEDS: IMMUNE GLOBULIN 20 GM/200 ML BTL IV (08:42)
[2020-08-07 08:45] VITALS: BP 133/72; PULSE 63; RESP 16; TEMP 37; O2SAT 97
[2020-08-07 09:15] VITALS: BP 135/70; PULSE 61; RESP 17; TEMP 37; O2SAT 97
[2020-08-07] MEDS: IMMUNE GLOBULIN 40 GM/400 ML BTL IV (09:41)
[2020-08-07 09:45] VITALS: BP 137/68; PULSE 57; RESP 16; TEMP 37.2; O2SAT 97
[2020-08-07 10:15] VITALS: BP 145/74; PULSE 60; RESP 17; TEMP 37.2; O2SAT 97
[2020-08-08] MEDS: Normal Saline Flush 10 ML SYR IVP (08:13)
[2020-08-08 08:15] LABS: CREATININE 1.2 mg/dL (0.70-1.30); Estimated GFR 59.51 (mL/min/1.73m2)
[2020-08-08] MEDS: Acetaminophen 500 MG TAB 1000 MG PO (08:20)
[2020-08-08] MEDS: IMMUNE GLOBULIN 5 GM/50 ML BTL IV (08:22)
[2020-08-08 08:29] VITALS: BP 133/70; PULSE 63; RESP 16; TEMP 37; O2SAT 96
[2020-08-08 08:45] VITALS: BP 129/73; PULSE 61; RESP 16; TEMP 36.9; O2SAT 99
[2020-08-08] MEDS: IMMUNE GLOBULIN 20 GM/200 ML BTL IV (08:57)
[2020-08-08 09:15] VITALS: BP 155/74; PULSE 62; RESP 17; TEMP 36.9; O2SAT 99
[2020-08-08 09:45] VITALS: BP 154/72; PULSE 60; RESP 16; TEMP 36.9; O2SAT 99
[2020-08-08] MEDS: IMMUNE GLOBULIN 40 GM/400 ML BTL IV (09:49)
[2020-08-08 10:15] VITALS: BP 156/82; PULSE 62; RESP 16; TEMP 36.9; O2SAT 100
[2020-08-09 08:22] VITALS: BP 136/66; PULSE 61; RESP 17; TEMP 36.6; O2SAT 98
[2020-08-09] MEDS: IMMUNE GLOBULIN 5 GM/50 ML BTL IV (08:22)
[2020-08-09] MEDS: Normal Saline Flush 10 ML SYR IVP (08:23)
[2020-08-09 08:39] VITALS: BP 145/69; PULSE 57; RESP 16; TEMP 37; O2SAT 98
[2020-08-09] MEDS: IMMUNE GLOBULIN 20 GM/200 ML BTL IV (08:57)
[2020-08-09 09:00] VITALS: BP 156/75; PULSE 59; RESP 18; TEMP 37; O2SAT 97
[2020-08-09] MEDS: IMMUNE GLOBULIN 40 GM/400 ML BTL IV (09:52)
== END 2020-08-29 23:59 | disposition home or self-care (01) ==
LOC: INF 02:33
PROVIDERS: PCP Emergency Medicine; Visit Provider Psychiatry & Neurology Neurology
DX: G70.00 Myasthenia gravis without (acute) exacerbation (principal)
CPT/HCPCS: 36415; 96365; 96366; 82565; J1459

== ENCOUNTER 2020-08-10 16:24 | Outpatient (REF) | payer MEDICARE, BC, SELFPAY ==
[2020-08-10 21:09] LABS: Rheumatoid Factor <8.6 IU/mL (<12.0)
[2020-08-10 22:20] LABS: PSA, Diagnostic 2.9 ng/mL (0.0-6.5)
[2020-08-13 09:27] LABS: Cyclic Citrullinated Peptide 2.6 U/mL (<5.0)
== END 2020-08-10 16:25 | disposition home or self-care (01) ==
LOC: LBN 16:24
PROVIDERS: PCP Emergency Medicine; Visit Provider Emergency Medicine
DX: M25.59 Pain in other specified joint (principal); M19.041 Primary osteoarthritis, right hand; M19.042 Primary osteoarthritis, left hand; N40.1 Benign prostatic hyperplasia with lower urinary tract symptoms
CPT/HCPCS: 86200; 84153; 86431

== ENCOUNTER 2020-08-13 01:54 | Outpatient (CLI) | payer MEDICARE, BC, SELFPAY ==
--- NOTE | 2020-08-13 08:18 | DI.RAD_ITS ---
Exam(s) XR ARTHRITIS SERIES EXAM: XR ARTHRITIS SERIES CLINICAL HISTORY: arthritis BOTH HANDS, M19.041,M19.042,DEFORMITIES. TECHNIQUE: 2D digital imaging was performed. COMPARISON: No exams were available for comparison FINDINGS: PA and [place] views reveal no evidence of fractures. Main findings here are at the proximal and di stal interphalangeal joints with relative sparing of the metacarpophalangeal joints and joints of the wrists. There are no erosions at the metacarpophalangeal joints evident although there is some mild joint space narrowing which is most evident in the 4th-ring fingers. There are pencil in cup deform ities of the proximal interphalangeal joints of the 2nd-index and 5th fingers of the left hand and of the 5th finger of the right hand. Also prominent degenerative subarticular cyst at these levels. I n the distal interphalangeal joints there is similar findings which are most evident in the DIP joint s of the 2nd-index, 3rd, 4th, and 5th fingers of the left hand and 5th finger of the right hand. The interphalangeal joints of the thumbs exhibit calcifications dorsally. IMPRESSION: Arthritis mutilans of the interphalangeal joints as described individually above. No fractures evide nt. Relative sparing of the metacarpophalangeal joints. Also relative sparing of the joints of the wrists. DATA REPOSITORY: RADIATION DOSE DELIVERED:
== END 2020-08-13 02:14 ==
PROVIDERS: PCP Emergency Medicine; Visit Provider Emergency Medicine
DX: M19.041 Primary osteoarthritis, right hand (principal); M19.042 Primary osteoarthritis, left hand
CPT/HCPCS: 73120

== ENCOUNTER 2020-09-06 02:22 | Outpatient (RCR) | payer MEDICARE, BC, SELFPAY ==
[2020-08-30 00:17] VITALS: BP 156/75; PULSE 59; RESP 18; TEMP 37
[2020-09-04] MEDS: Normal Saline Flush 10 ML SYR IVP ×2 (08:06→08:18)
[2020-09-04 08:13] VITALS: BP 156/75; PULSE 60; RESP 17; TEMP 37; O2SAT 98
[2020-09-04] MEDS: IMMUNE GLOBULIN 5 GM/50 ML BTL IV (08:17)
[2020-09-04 08:25] VITALS: BP 146/71; PULSE 60; RESP 18; TEMP 37; O2SAT 98
[2020-09-04 08:40] VITALS: BP 142/71; PULSE 55; RESP 16; TEMP 37.1; O2SAT 98
[2020-09-04] MEDS: IMMUNE GLOBULIN 20 GM/200 ML BTL IV (08:47)
[2020-09-04 09:10] VITALS: BP 154/74; PULSE 57; RESP 17; TEMP 36.9; O2SAT 98
[2020-09-04 09:40] VITALS: BP 162/77; PULSE 58; RESP 16; TEMP 37.1; O2SAT 98
[2020-09-04] MEDS: IMMUNE GLOBULIN 40 GM/400 ML BTL IV (09:45)
[2020-09-04 10:10] VITALS: BP 154/58; PULSE 93; RESP 18; TEMP 37; O2SAT 98
[2020-09-05] MEDS: Normal Saline Flush 10 ML SYR IVP (08:01)
[2020-09-05] MEDS: IMMUNE GLOBULIN 5 GM/50 ML BTL IV (08:01)
[2020-09-05 08:03] VITALS: BP 150/72; PULSE 59; RESP 18; TEMP 36.5; O2SAT 98
[2020-09-05 08:20] VITALS: BP 138/66; PULSE 57; RESP 16; TEMP 36.8; O2SAT 98
[2020-09-05 08:22] LABS: CREATININE 1.2 mg/dL (0.70-1.30); Estimated GFR 59.51 (mL/min/1.73m2)
[2020-09-05] MEDS: IMMUNE GLOBULIN 20 GM/200 ML BTL IV (08:31)
[2020-09-05 08:35] VITALS: BP 135/73; PULSE 55; RESP 16; TEMP 36.9; O2SAT 96
[2020-09-05 09:05] VITALS: BP 149/74; PULSE 58; RESP 16; TEMP 36.9; O2SAT 97
[2020-09-05] MEDS: IMMUNE GLOBULIN 40 GM/400 ML BTL IV (09:31)
[2020-09-05 09:35] VITALS: BP 167/82; PULSE 60; RESP 17; TEMP 36.7; O2SAT 98
[2020-09-06] VITALS (7 sets, daily range): BP systolic 134–194; BP diastolic 54–89; PULSE 59–63; RESP 18; TEMP 36.9–37.1; O2SAT 96–98
[2020-09-06] MEDS: IMMUNE GLOBULIN 5 GM/50 ML BTL IV (08:01)
[2020-09-06] MEDS: Normal Saline Flush 10 ML SYR IVP (08:01)
[2020-09-06] MEDS: IMMUNE GLOBULIN 20 GM/200 ML BTL IV (08:37)
[2020-09-06] MEDS: IMMUNE GLOBULIN 40 GM/400 ML BTL IV (09:33)
== END 2020-09-29 23:59 | disposition home or self-care (01) ==
LOC: INF 02:22
PROVIDERS: PCP Emergency Medicine; Visit Provider Psychiatry & Neurology Neurology
DX: G70.00 Myasthenia gravis without (acute) exacerbation (principal)
CPT/HCPCS: 36415; 96365; 96366; 82565; J1459

== ENCOUNTER → 2020-09-17 09:22 | Outpatient (BNVA) | payer MEDICARE, BC, SELFPAY | PROVIDERS: PCP Emergency Medicine; Visit Provider Psychiatry & Neurology Neurology | DX: G62.9 Polyneuropathy, unspecified (principal); G70.00 Myasthenia gravis without (acute) exacerbation; E11.9 Type 2 diabetes mellitus without complications; I10 Essential (primary) hypertension; E03.9 Hypothyroidism, unspecified; E78.5 Hyperlipidemia, unspecified | CPT/HCPCS: 99215 ==

== ENCOUNTER 2020-09-20 08:26 | Outpatient (CLI) | payer MEDICARE, BC, SELFPAY ==
[2020-09-20 13:04] LABS: ESR 14 mm/hr (0-20)
== END 2020-09-20 08:27 | disposition home or self-care (01) ==
PROVIDERS: PCP Emergency Medicine; Visit Provider Student in an Organized Health Care Education/Training Program
DX: M15.4 Erosive (osteo)arthritis (principal)
CPT/HCPCS: 36415; 85652; 86140

== ENCOUNTER 2020-10-19 04:25 | Outpatient (RCR) | payer MEDICARE, BC, SELFPAY ==
[2020-09-30 00:08] VITALS: BP 175/89; PULSE 63; RESP 18; TEMP 36.9
[2020-10-17] VITALS (7 sets, daily range): BP systolic 123–158; BP diastolic 62–74; PULSE 50–66; RESP 16–17; TEMP 36.7–37.4; O2SAT 96
[2020-10-17] MEDS: IMMUNE GLOBULIN 5 GM/50 ML BTL IV (08:10)
[2020-10-17] MEDS: Normal Saline Flush 10 ML SYR IVP (08:10)
[2020-10-17] MEDS: IMMUNE GLOBULIN 20 GM/200 ML BTL IV (08:51)
[2020-10-17] MEDS: IMMUNE GLOBULIN 40 GM/400 ML BTL IV (09:47)
[2020-10-17 11:07] LABS: Vitamin B12 357 pg/mL (193-986)
[2020-10-18 07:55] VITALS: BP 182/53; PULSE 62; RESP 20; TEMP 36.4; O2SAT 95
[2020-10-18] MEDS: IMMUNE GLOBULIN 5 GM/50 ML BTL IV (07:58)
[2020-10-18] MEDS: Normal Saline Flush 10 ML SYR IVP (08:00)
[2020-10-18 08:17] VITALS: BP 137/67; PULSE 58; RESP 16; TEMP 37.4; O2SAT 98
[2020-10-18 08:31] LABS: CREATININE 1.3 mg/dL (0.70-1.30); Estimated GFR 54.26 (mL/min/1.73m2)
[2020-10-18 08:35] VITALS: BP 156/68; PULSE 54; RESP 16; TEMP 37.4; O2SAT 98
[2020-10-18] MEDS: IMMUNE GLOBULIN 20 GM/200 ML BTL IV (08:35)
[2020-10-18 09:05] VITALS: BP 149/68; PULSE 55; RESP 17; TEMP 36.8; O2SAT 98
[2020-10-18] MEDS: IMMUNE GLOBULIN 40 GM/400 ML BTL IV (09:25)
[2020-10-18 09:30] VITALS: BP 162/78; PULSE 54; RESP 16; TEMP 36.9; O2SAT 99
[2020-10-18 09:36] VITALS: BP 152/72; PULSE 54; RESP 16; TEMP 36.9; O2SAT 98
[2020-10-18 12:33] LABS: Albumin 59.4 % (55.8-66.1); Total Protein 6.8 g/dL (6.3-8.2)
[2020-10-19] MEDS: Normal Saline Flush 10 ML SYR IVP (07:57)
[2020-10-19] MEDS: IMMUNE GLOBULIN 5 GM/50 ML BTL IV (07:57)
[2020-10-19 08:00] VITALS: BP 134/78; PULSE 60; RESP 16; TEMP 37.3; O2SAT 96
[2020-10-19 08:15] VITALS: BP 135/72; PULSE 52; RESP 16; TEMP 37.2; O2SAT 95
[2020-10-19 08:30] VITALS: BP 131/72; PULSE 58; RESP 16; TEMP 37.7; O2SAT 96
[2020-10-19] MEDS: IMMUNE GLOBULIN 20 GM/200 ML BTL IV (08:33)
[2020-10-19 08:54] VITALS: BP 142/72; PULSE 55; RESP 16; TEMP 37.7; O2SAT 96
[2020-10-19 09:23] VITALS: BP 148/76; PULSE 55; RESP 16; TEMP 36.7; O2SAT 96
[2020-10-19] MEDS: IMMUNE GLOBULIN 40 GM/400 ML BTL IV (09:26)
[2020-10-19 09:30] VITALS: BP 148/76; PULSE 55; RESP 16; TEMP 36.7; O2SAT 96
== END 2020-10-30 23:59 | disposition home or self-care (01) ==
LOC: INF 04:25
PROVIDERS: PCP Emergency Medicine; Visit Provider Psychiatry & Neurology Neurology
DX: G70.00 Myasthenia gravis without (acute) exacerbation (principal)
CPT/HCPCS: 36415; 96365; 96366; 82565; 82607; 84165; J1459

== ENCOUNTER 2020-10-30 03:06 | Outpatient (CLI) | payer MEDICARE, BC, SELFPAY ==
[2020-10-30 12:40] LABS: Anion Gap 6.7 mmol/L (3-11); BUN 16 mg/dL (7-18); CO2 30.3 mmol/L (21.0-32.0); CREATININE 1.2 mg/dL (0.70-1.30); Calcium 9.1 mg/dL (8.5-10.1); Chloride 102 mmol/L (98-107); Estimated GFR 59.51 (mL/min/1.73m2); Glucose 139 mg/dL (74-106); Sodium 139 mmol/L (136-145)
== END 2020-10-30 03:07 | disposition home or self-care (01) ==
PROVIDERS: PCP Emergency Medicine; Visit Provider Emergency Medicine
DX: I10 Essential (primary) hypertension (principal)
CPT/HCPCS: 36415; 80048

== ENCOUNTER 2020-11-15 18:23 | Outpatient (REF) | payer MEDICARE, BC, SELFPAY ==
[2020-11-15 19:21] LABS: Anion Gap 3.6 mmol/L (3-11); BUN 21 mg/dL (7-18); CO2 31.4 mmol/L (21.0-32.0); CREATININE 1.2 mg/dL (0.70-1.30); Calcium 9.1 mg/dL (8.5-10.1); Chloride 101 mmol/L (98-107); Estimated GFR 59.51 (mL/min/1.73m2); Glucose 328 mg/dL (74-106); Sodium 136 mmol/L (136-145)
== END 2020-11-15 18:24 | disposition home or self-care (01) ==
LOC: LBN 18:23
PROVIDERS: PCP Emergency Medicine; Visit Provider Emergency Medicine
DX: I10 Essential (primary) hypertension (principal)
CPT/HCPCS: 80048

== ENCOUNTER 2020-11-29 08:00 | Outpatient (RCR) | payer MEDICARE, BC, SELFPAY ==
[2020-10-31 00:18] VITALS: BP 148/76; PULSE 55; RESP 16; TEMP 36.7
[2020-11-28 08:10] VITALS: BP 170/72; PULSE 66; RESP 17; TEMP 36.6; O2SAT 98
[2020-11-28] MEDS: Normal Saline Flush 10 ML SYR IVP (08:15)
[2020-11-28] MEDS: IMMUNE GLOBULIN 5 GM/50 ML BTL IV (08:15)
[2020-11-28 08:30] VITALS: BP 154/74; PULSE 60; RESP 18; TEMP 37.1; O2SAT 96
[2020-11-28] MEDS: IMMUNE GLOBULIN 20 GM/200 ML BTL IV (08:42)
[2020-11-28 08:47] VITALS: BP 148/80; PULSE 63; RESP 18; TEMP 37; O2SAT 97
[2020-11-28 09:18] VITALS: BP 153/78; PULSE 60; RESP 18; TEMP 36.9; O2SAT 95
[2020-11-28] MEDS: IMMUNE GLOBULIN 40 GM/400 ML BTL IV (09:40)
[2020-11-28 09:48] VITALS: BP 155/73; PULSE 59; RESP 18; TEMP 36.9; O2SAT 96
[2020-11-28 10:15] VITALS: BP 176/83; PULSE 61; RESP 17; TEMP 36.9; O2SAT 97
[2020-11-29 08:10] VITALS: BP 168/76; PULSE 72; RESP 18; TEMP 36.6; O2SAT 98
[2020-11-29] MEDS: IMMUNE GLOBULIN 5 GM/50 ML BTL IV (08:10)
[2020-11-29] MEDS: Normal Saline Flush 10 ML SYR IVP (08:15)
[2020-11-29 08:25] VITALS: BP 148/72; PULSE 64; RESP 18; TEMP 36.7; O2SAT 98
[2020-11-29] MEDS: IMMUNE GLOBULIN 20 GM/200 ML BTL IV (08:37)
[2020-11-29 08:38] LABS: CREATININE 1.2 mg/dL (0.70-1.30); Estimated GFR 59.51 (mL/min/1.73m2)
[2020-11-29 08:44] VITALS: BP 154/73; PULSE 64; RESP 18; TEMP 36.7; O2SAT 96
[2020-11-29 09:15] VITALS: BP 149/78; PULSE 63; RESP 18; TEMP 36.7; O2SAT 97
[2020-11-29] MEDS: IMMUNE GLOBULIN 40 GM/400 ML BTL IV (09:33)
[2020-11-29 09:45] VITALS: BP 153/80; PULSE 61; RESP 18; TEMP 36.9; O2SAT 97
== END 2020-11-29 23:59 | disposition home or self-care (01) ==
LOC: INF 08:00
PROVIDERS: PCP Emergency Medicine; Visit Provider Psychiatry & Neurology Neurology
DX: G70.00 Myasthenia gravis without (acute) exacerbation (principal)
CPT/HCPCS: 36415; 96365; 96366; 82565; J1459

== ENCOUNTER 2020-11-30 02:46 | Outpatient (RCR) | payer MEDICARE, BC, SELFPAY ==
[2020-11-30] VITALS (7 sets, daily range): BP systolic 136–176; BP diastolic 74–80; PULSE 61–65; RESP 16–18; TEMP 36.3–37.3; O2SAT 96–98
[2020-11-30] MEDS: Normal Saline Flush 10 ML SYR IVP (08:05)
[2020-11-30] MEDS: IMMUNE GLOBULIN 5 GM/50 ML BTL IV (08:06)
[2020-11-30] MEDS: IMMUNE GLOBULIN 20 GM/200 ML BTL IV (08:39)
[2020-11-30] MEDS: IMMUNE GLOBULIN 40 GM/400 ML BTL IV (09:35)
== END 2020-12-30 23:59 | disposition home or self-care (01) ==
LOC: INF 02:46
PROVIDERS: PCP Emergency Medicine; Visit Provider Psychiatry & Neurology Neurology
DX: G70.01 Myasthenia gravis with (acute) exacerbation (principal)
CPT/HCPCS: 96365; 96366; J1459

== ENCOUNTER → 2020-12-12 09:14 | Outpatient (BNVA) | payer MEDICARE, BC, SELFPAY | PROVIDERS: PCP Emergency Medicine; Referring Provider Emergency Medicine; Visit Provider Psychiatry & Neurology Neurology | DX: G70.00 Myasthenia gravis without (acute) exacerbation (principal); E11.42 Type 2 diabetes mellitus with diabetic polyneuropathy | CPT/HCPCS: 99213 ==

== ENCOUNTER 2021-01-29 02:20 | Outpatient (RCR) | payer MEDICARE, BC, SELFPAY ==
[2020-12-31 00:11] VITALS: BP 176/80; PULSE 62; RESP 17; TEMP 37.3
[2021-01-29] MEDS: IMMUNE GLOBULIN 5 GM/50 ML BTL IV (08:02)
[2021-01-29] MEDS: Normal Saline Flush 10 ML SYR IVP (08:02)
[2021-01-29 08:05] VITALS: BP 164/76; PULSE 68; RESP 20; TEMP 36.5; O2SAT 98
[2021-01-29 08:24] VITALS: BP 143/79; PULSE 64; RESP 20; TEMP 36.6; O2SAT 98
[2021-01-29] MEDS: IMMUNE GLOBULIN 20 GM/200 ML BTL IV (08:34)
[2021-01-29 08:40] VITALS: BP 157/72; PULSE 64; RESP 20; TEMP 36.8; O2SAT 98
[2021-01-29 09:10] VITALS: BP 165/76; PULSE 60; RESP 19; TEMP 37.2; O2SAT 98
[2021-01-29] MEDS: IMMUNE GLOBULIN 40 GM/400 ML BTL IV (09:37)
[2021-01-29 09:40] VITALS: BP 168/85; PULSE 63; RESP 18; TEMP 37.2; O2SAT 98
== END 2021-01-29 23:59 | disposition home or self-care (01) ==
LOC: INF 02:20
PROVIDERS: PCP Emergency Medicine; Visit Provider Psychiatry & Neurology Neurology
DX: G70.00 Myasthenia gravis without (acute) exacerbation (principal)
CPT/HCPCS: 96365; 96366; J1459

== ENCOUNTER 2021-01-31 01:53 | Outpatient (RCR) | payer MEDICARE, BC, SELFPAY ==
[2021-01-30] VITALS (7 sets, daily range): BP systolic 147–186; BP diastolic 70–94; PULSE 58–63; RESP 16–18; TEMP 36.9–37.2; O2SAT 96–99
[2021-01-30] MEDS: IMMUNE GLOBULIN 5 GM/50 ML BTL IV (07:55)
[2021-01-30] MEDS: Normal Saline Flush 10 ML SYR IVP (08:03)
[2021-01-30] MEDS: IMMUNE GLOBULIN 20 GM/200 ML BTL IV (08:23)
[2021-01-30 08:27] LABS: CREATININE 1.2 mg/dL (0.70-1.30); Estimated GFR 59.51 (mL/min/1.73m2)
[2021-01-30] MEDS: IMMUNE GLOBULIN 40 GM/400 ML BTL IV (09:21)
[2021-01-31] VITALS (7 sets, daily range): BP systolic 149–182; BP diastolic 67–82; PULSE 37–65; RESP 17–18; TEMP 36.5–37.2; O2SAT 95–99
[2021-01-31] MEDS: IMMUNE GLOBULIN 5 GM/50 ML BTL IV (08:04)
[2021-01-31] MEDS: Normal Saline Flush 10 ML SYR IVP (08:05)
[2021-01-31] MEDS: IMMUNE GLOBULIN 20 GM/200 ML BTL IV (08:39)
[2021-01-31] MEDS: IMMUNE GLOBULIN 40 GM/400 ML BTL IV (09:35)
== END 2021-03-01 23:59 | disposition home or self-care (01) ==
LOC: INF 01:53
PROVIDERS: PCP Emergency Medicine; Visit Provider Psychiatry & Neurology Neurology
DX: G70.01 Myasthenia gravis with (acute) exacerbation (principal)
CPT/HCPCS: 36415; 96365; 96366; 82565; J1459

== ENCOUNTER 2021-03-12 09:30 | Outpatient (CLI) | payer MEDICARE, BC, SELFPAY ==
--- NOTE | 2021-03-12 09:30 | RT.EKG_ITS ---
APPROVED REPORT Exam: Resting ECG Reason for Exam: Palpitations Patient Location: O HR:63 bpm ECG Measurements Heart Rate 63 AXIS AR 150 P -13 QRSd 100 QRS 19 QT 416 T 58 QTc 425 Conclusion Sinus rhythm...normal P axis, V-rate 60- 99 Ventricular premature complex...V complex w/ short R-R interval
== END 2021-03-12 09:31 | disposition home or self-care (01) ==
LOC: DI.CM 09:36
PROVIDERS: PCP Emergency Medicine; Visit Provider Emergency Medicine
DX: R00.2 Palpitations (principal); I49.3 Ventricular premature depolarization
CPT/HCPCS: 93010

== ENCOUNTER 2021-03-19 02:37 | Outpatient (CLI) | payer MEDICARE, BC, SELFPAY ==
[2021-03-19 09:33] LABS: Hemoglobin A1C 6.3 % (<5.7)
[2021-03-19 10:40] LABS: Anion Gap 5.4 mmol/L (3-11); BUN 16 mg/dL (7-18); CO2 31.6 mmol/L (21.0-32.0); CREATININE 1.2 mg/dL (0.70-1.30); Calcium 8.7 mg/dL (8.5-10.1); Calculated LDL 76 mg/dL (<100); Chloride 102 mmol/L (98-107); Cholesterol 157 mg/dL (<200); Estimated GFR 59.35 (mL/min/1.73m2); Glucose 136 mg/dL (74-106); HDL Cholesterol 67 mg/dL (40-60); Sodium 139 mmol/L (136-145); Triglyceride 74 mg/dL (<150)
== END 2021-03-19 02:38 | disposition home or self-care (01) ==
LOC: LBO 02:37
PROVIDERS: PCP Emergency Medicine; Visit Provider Emergency Medicine
DX: E10.9 Type 1 diabetes mellitus without complications (principal); I10 Essential (primary) hypertension; C67.9 Malignant neoplasm of bladder, unspecified
CPT/HCPCS: 36415; 52000; 80048; 80061; 81003; 83036

== ENCOUNTER 2021-03-28 03:13 | Outpatient (RCR) | payer MEDICARE, BC, SELFPAY ==
[2021-03-02 00:16] VITALS: BP 172/76; PULSE 58; RESP 18; TEMP 37
[2021-03-26 08:00] VITALS: BP 174/83; PULSE 63; RESP 18; TEMP 35.9; O2SAT 98
[2021-03-26] MEDS: Normal Saline Flush 10 ML SYR IVP (08:04)
[2021-03-26] MEDS: IMMUNE GLOBULIN 5 GM/50 ML BTL IV (08:04)
[2021-03-26 08:22] VITALS: BP 151/71; PULSE 60; RESP 17; TEMP 36.7; O2SAT 96
[2021-03-26] MEDS: IMMUNE GLOBULIN 20 GM/200 ML BTL IV (08:29)
[2021-03-26 08:37] VITALS: BP 150/75; PULSE 63; RESP 17; TEMP 36.7; O2SAT 94
[2021-03-26 09:09] VITALS: BP 149/73; PULSE 60; RESP 17; TEMP 36.3; O2SAT 94
[2021-03-26] MEDS: IMMUNE GLOBULIN 40 GM/400 ML BTL IV (09:27)
[2021-03-26 09:40] VITALS: BP 156/70; PULSE 57; RESP 16; TEMP 36.8; O2SAT 96
[2021-03-26 10:10] VITALS: BP 192/84; PULSE 75; RESP 16; TEMP 36.6; O2SAT 96
[2021-03-27] MEDS: Normal Saline Flush 10 ML SYR IVP (07:58)
[2021-03-27] MEDS: IMMUNE GLOBULIN 5 GM/50 ML BTL IV (07:58)
[2021-03-27 08:13] VITALS: BP 154/72; PULSE 64; RESP 16; TEMP 36.8; O2SAT 98
[2021-03-27 08:27] LABS: CREATININE 1.2 mg/dL (0.70-1.30); Estimated GFR 59.35 (mL/min/1.73m2)
[2021-03-27 08:30] VITALS: BP 143/75; PULSE 61; RESP 17; TEMP 36.6; O2SAT 98
[2021-03-27] MEDS: IMMUNE GLOBULIN 20 GM/200 ML BTL IV (08:32)
[2021-03-27 08:46] VITALS: BP 158/80; PULSE 62; RESP 16; TEMP 37; O2SAT 98
[2021-03-27] MEDS: IMMUNE GLOBULIN 40 GM/400 ML BTL IV (09:12)
[2021-03-27 09:15] VITALS: BP 166/78; PULSE 60; RESP 16; TEMP 36.9; O2SAT 99
[2021-03-27 09:45] VITALS: BP 174/78; PULSE 60; RESP 17; TEMP 36.8; O2SAT 99
[2021-03-27 10:19] VITALS: BP 178/80; PULSE 61; RESP 17; TEMP 36.9; O2SAT 99
[2021-03-28 08:00] VITALS: BP 172/86; PULSE 69; RESP 17; TEMP 36; O2SAT 97
[2021-03-28] MEDS: IMMUNE GLOBULIN 5 GM/50 ML BTL IV (08:06)
[2021-03-28] MEDS: Normal Saline Flush 10 ML SYR IVP (08:06)
[2021-03-28 08:21] VITALS: BP 178/87; PULSE 68; RESP 20; TEMP 36.7; O2SAT 99
[2021-03-28] MEDS: IMMUNE GLOBULIN 20 GM/200 ML BTL IV (08:33)
[2021-03-28 08:37] VITALS: BP 163/80; PULSE 61; RESP 16; TEMP 36.9; O2SAT 95
[2021-03-28 09:07] VITALS: BP 177/68; PULSE 60; RESP 16; TEMP 37; O2SAT 97
[2021-03-28] MEDS: IMMUNE GLOBULIN 40 GM/400 ML BTL IV (09:23)
[2021-03-28 09:37] VITALS: BP 180/81; PULSE 64; RESP 16; TEMP 36.8; O2SAT 95
[2021-03-28 10:07] VITALS: BP 194/99; PULSE 78; RESP 17; TEMP 36.5; O2SAT 97
== END 2021-04-01 23:59 | disposition home or self-care (01) ==
LOC: INF 03:13
PROVIDERS: PCP Family Medicine; Visit Provider Psychiatry & Neurology Neurology
DX: G70.01 Myasthenia gravis with (acute) exacerbation (principal)
CPT/HCPCS: 36415; 96365; 96366; 82565; J1459

== ENCOUNTER → 2021-05-08 12:25 | Outpatient (BNVA) | payer MEDICARE, BC, SELFPAY | PROVIDERS: PCP Family Medicine; Visit Provider Psychiatry & Neurology Neurology | DX: G70.00 Myasthenia gravis without (acute) exacerbation (principal); G62.9 Polyneuropathy, unspecified | CPT/HCPCS: 99213 ==

== ENCOUNTER 2021-05-15 08:21 | Outpatient (RCR) | payer MEDICARE, BC, SELFPAY ==
--- NOTE | 2021-05-15 10:30 | HOLTER_ITS ---
APPROVED REPORT Conclusion This is a 48-hour Holter monitor ordered for palpitations Predominant rhythm was sinus with an average heart rate of 70. Minimum was 54, maximum 118 There were very rare atrial premature beats There were moderately frequent ventricular ectopic beats comprising 6.6% of total. There were occasi onal couplets, rare triplets There was no high-grade AV block, no atrial fibrillation, no pauses greater than 3 seconds No patient symptoms were reported
== END 2021-05-30 23:59 | disposition home or self-care (01) ==
LOC: RT 08:21
PROVIDERS: PCP Family Medicine; Visit Provider Emergency Medicine
DX: R00.2 Palpitations (principal); I49.3 Ventricular premature depolarization
CPT/HCPCS: 93227; 93225; 93226

== ENCOUNTER 2021-05-17 00:55 | Outpatient (RCR) | payer MEDICARE, BC, SELFPAY ==
[2021-05-15] MEDS: IMMUNE GLOBULIN 5 GM/50 ML BTL IV (10:00)
[2021-05-15] MEDS: Normal Saline Flush 10 ML SYR IVP (10:01)
[2021-05-15 10:13] VITALS: BP 170/76; PULSE 55; RESP 20; TEMP 36.3; O2SAT 98
[2021-05-15 10:28] VITALS: BP 156/66; PULSE 57; RESP 16; TEMP 36.5; O2SAT 97
[2021-05-15] MEDS: IMMUNE GLOBULIN 20 GM/200 ML BTL IV (10:31)
[2021-05-15 10:43] VITALS: BP 159/70; PULSE 59; RESP 16; TEMP 37.1; O2SAT 96
[2021-05-15 11:13] VITALS: BP 156/77; PULSE 57; RESP 16; TEMP 37.1; O2SAT 95
[2021-05-15] MEDS: IMMUNE GLOBULIN 40 GM/400 ML BTL IV (11:28)
[2021-05-15 11:47] VITALS: BP 178/74; PULSE 56; RESP 16; TEMP 37; O2SAT 96
[2021-05-15 12:18] VITALS: BP 167/85; PULSE 54; RESP 16; TEMP 36.6; O2SAT 96
[2021-05-16 08:05] VITALS: BP 171/63; PULSE 70; RESP 16; TEMP 36.4; O2SAT 99
[2021-05-16] MEDS: Normal Saline Flush 10 ML SYR IVP (08:08)
[2021-05-16] MEDS: IMMUNE GLOBULIN 5 GM/50 ML BTL IV (08:08)
[2021-05-16 08:30] VITALS: BP 147/67; PULSE 62; RESP 16; TEMP 36.6; O2SAT 96
[2021-05-16 08:36] LABS: CREATININE 1.3 mg/dL (0.70-1.30); Estimated GFR 54.11 (mL/min/1.73m2)
[2021-05-16] MEDS: IMMUNE GLOBULIN 20 GM/200 ML BTL IV (08:42)
[2021-05-16 09:05] VITALS: BP 152/47; PULSE 58; RESP 17; TEMP 36.9; O2SAT 98
[2021-05-16 09:20] VITALS: BP 177/63; PULSE 51; RESP 16; TEMP 36.6; O2SAT 99
[2021-05-16] MEDS: IMMUNE GLOBULIN 40 GM/400 ML BTL IV (09:41)
[2021-05-16 09:50] VITALS: BP 156/79; PULSE 57; RESP 17; TEMP 36.9; O2SAT 98
[2021-05-16 10:30] VITALS: BP 181/71; PULSE 59; RESP 17; TEMP 36.9; O2SAT 100
[2021-05-17] MEDS: Normal Saline Flush 10 ML SYR IVP (08:06)
[2021-05-17] MEDS: IMMUNE GLOBULIN 5 GM/50 ML BTL IV (08:14)
[2021-05-17 08:15] VITALS: BP 129/74; PULSE 62; RESP 20; TEMP 36.5; O2SAT 96
[2021-05-17 08:30] VITALS: BP 159/81; PULSE 65; RESP 20; TEMP 36.5; O2SAT 96
[2021-05-17 08:45] VITALS: BP 174/56; PULSE 56; RESP 20; TEMP 37; O2SAT 96
[2021-05-17] MEDS: IMMUNE GLOBULIN 20 GM/200 ML BTL IV (08:47)
[2021-05-17 09:30] VITALS: BP 171/73; PULSE 55; RESP 16; TEMP 37; O2SAT 97
[2021-05-17] MEDS: IMMUNE GLOBULIN 40 GM/400 ML BTL IV (09:47)
[2021-05-17 10:00] VITALS: BP 177/79; PULSE 56; RESP 16; TEMP 36.8; O2SAT 97
== END 2021-05-30 23:59 | disposition home or self-care (01) ==
LOC: INF 00:55
PROVIDERS: PCP Family Medicine; Visit Provider Psychiatry & Neurology Neurology
DX: G70.01 Myasthenia gravis with (acute) exacerbation (principal)
CPT/HCPCS: 36415; 93227; 96365; 96366; 82565; 93225; 93226; J1459

== ENCOUNTER 2021-06-27 02:31 | Outpatient (RCR) | payer MEDICARE, BC, SELFPAY ==
[2021-05-31 00:18] VITALS: BP 177/79; PULSE 56; RESP 16; TEMP 36.8
[2021-06-25 08:05] VITALS: BP 125/68; PULSE 40; RESP 17; TEMP 36.7; O2SAT 97
[2021-06-25] MEDS: IMMUNE GLOBULIN 5 GM/50 ML BTL IV (08:08)
[2021-06-25] MEDS: Normal Saline Flush 10 ML SYR IVP (08:08)
[2021-06-25 08:35] VITALS: BP 129/61; PULSE 55; RESP 17; TEMP 37.1; O2SAT 95
[2021-06-25 08:50] VITALS: BP 136/71; PULSE 49; RESP 16; TEMP 36.8; O2SAT 96
[2021-06-25] MEDS: IMMUNE GLOBULIN 20 GM/200 ML BTL IV (08:50)
[2021-06-25 09:20] VITALS: BP 159/73; PULSE 53; RESP 17; TEMP 37.1; O2SAT 97
[2021-06-25] MEDS: IMMUNE GLOBULIN 40 GM/400 ML BTL IV (09:45)
[2021-06-25 09:50] VITALS: BP 168/77; PULSE 55; RESP 17; TEMP 37.2; O2SAT 96
[2021-06-25 10:20] VITALS: BP 158/75; PULSE 50; RESP 17; TEMP 37; O2SAT 97
[2021-06-26 08:10] VITALS: BP 144/59; PULSE 32; RESP 18; TEMP 36.5; O2SAT 98
[2021-06-26] MEDS: IMMUNE GLOBULIN 5 GM/50 ML BTL IV (08:11)
[2021-06-26] MEDS: Normal Saline Flush 10 ML SYR IVP (08:11)
[2021-06-26 08:31] LABS: CREATININE 1.2 mg/dL (0.70-1.30); Estimated GFR 59.35 (mL/min/1.73m2)
[2021-06-26 08:32] VITALS: BP 133/64; PULSE 54; RESP 18; TEMP 36.7; O2SAT 97
[2021-06-26] MEDS: IMMUNE GLOBULIN 20 GM/200 ML BTL IV (08:37)
[2021-06-26 08:47] VITALS: BP 130/59; PULSE 54; RESP 18; TEMP 36.6; O2SAT 95
[2021-06-26 09:17] VITALS: BP 142/71; PULSE 53; RESP 17; TEMP 37; O2SAT 96
[2021-06-26] MEDS: IMMUNE GLOBULIN 40 GM/400 ML BTL IV (09:43)
[2021-06-26 09:47] VITALS: BP 151/76; PULSE 51; RESP 18; TEMP 37; O2SAT 97
[2021-06-26 10:20] VITALS: BP 158/68; PULSE 55; RESP 18; TEMP 36.9; O2SAT 96
[2021-06-27] MEDS: IMMUNE GLOBULIN 5 GM/50 ML BTL IV (07:51)
[2021-06-27] MEDS: Normal Saline Flush 10 ML SYR IVP (07:51)
[2021-06-27 07:55] VITALS: BP 149/71; PULSE 42; RESP 16; TEMP 36.5; O2SAT 98
[2021-06-27 08:15] VITALS: BP 147/76; PULSE 58; RESP 16; TEMP 36.8; O2SAT 95
[2021-06-27] MEDS: IMMUNE GLOBULIN 20 GM/200 ML BTL IV (08:23)
[2021-06-27 08:29] VITALS: BP 145/72; PULSE 48; RESP 17; TEMP 36.8; O2SAT 96
[2021-06-27 08:59] VITALS: BP 160/68; PULSE 59; RESP 16; TEMP 37; O2SAT 95
[2021-06-27] MEDS: IMMUNE GLOBULIN 40 GM/400 ML BTL IV (09:25)
[2021-06-27 09:30] VITALS: BP 159/75; PULSE 55; RESP 17; TEMP 37; O2SAT 96
== END 2021-06-29 23:59 | disposition home or self-care (01) ==
LOC: INF 02:31
PROVIDERS: PCP Family Medicine; Visit Provider Psychiatry & Neurology Neurology
DX: G70.01 Myasthenia gravis with (acute) exacerbation (principal)
CPT/HCPCS: 36415; 96365; 96366; 82565; J1459

== ENCOUNTER 2021-08-09 00:53 | Outpatient (RCR) | payer MEDICARE, BC, SELFPAY ==
[2021-06-30 00:17] VITALS: BP 159/75; PULSE 55; RESP 17; TEMP 37
[2021-08-07 08:05] VITALS: BP 162/78; PULSE 55; RESP 18; TEMP 36.6; O2SAT 98
[2021-08-07] MEDS: IMMUNE GLOBULIN 5 GM/50 ML BTL IVPB (08:11)
[2021-08-07] MEDS: Normal Saline Flush 10 ML SYR IVP (08:11)
[2021-08-07 08:30] VITALS: BP 150/72; PULSE 57; RESP 17; TEMP 36.1; O2SAT 97
[2021-08-07 08:45] VITALS: BP 150/76; PULSE 55; RESP 17; TEMP 36.2; O2SAT 96
[2021-08-07] MEDS: IMMUNE GLOBULIN 20 GM/200 ML BTL IVPB (08:55)
[2021-08-07 09:20] VITALS: BP 153/72; PULSE 57; RESP 17; TEMP 36.1; O2SAT 97
[2021-08-07] MEDS: IMMUNE GLOBULIN 40 GM/400 ML BTL IVPB (09:45)
[2021-08-07 09:55] VITALS: BP 147/55; PULSE 57; RESP 17; TEMP 36.9; O2SAT 96
[2021-08-07 10:25] VITALS: BP 150/80; PULSE 57; RESP 16; TEMP 36.4; O2SAT 97
[2021-08-08] VITALS (7 sets, daily range): BP systolic 147–179; BP diastolic 64–82; PULSE 56–67; RESP 17–19; TEMP 36.4–37.2; O2SAT 95–99
[2021-08-08] MEDS: Normal Saline Flush 10 ML SYR IVP (07:51)
[2021-08-08] MEDS: IMMUNE GLOBULIN 5 GM/50 ML BTL IVPB (08:00)
[2021-08-08] MEDS: IMMUNE GLOBULIN 20 GM/200 ML BTL IVPB (08:28)
[2021-08-08 08:30] LABS: CREATININE 1.2 mg/dL (0.70-1.30); Estimated GFR 59.35 (mL/min/1.73m2)
[2021-08-08] MEDS: IMMUNE GLOBULIN 40 GM/400 ML BTL IVPB (09:35)
[2021-08-09] VITALS (7 sets, daily range): BP systolic 149–187; BP diastolic 60–89; PULSE 43–67; RESP 17; TEMP 36.5–37.1; O2SAT 96–98
[2021-08-09] MEDS: IMMUNE GLOBULIN 5 GM/50 ML BTL IVPB (07:58)
[2021-08-09] MEDS: Normal Saline Flush 10 ML SYR IVP (07:59)
[2021-08-09] MEDS: IMMUNE GLOBULIN 20 GM/200 ML BTL IVPB (08:32)
[2021-08-09] MEDS: IMMUNE GLOBULIN 40 GM/400 ML BTL IVPB (09:32)
== END 2021-08-29 23:59 | disposition home or self-care (01) ==
LOC: INF 00:53
PROVIDERS: PCP Family Medicine; Visit Provider Psychiatry & Neurology Neurology
DX: G70.01 Myasthenia gravis with (acute) exacerbation (principal)
CPT/HCPCS: 36415; 96365; 96366; 82565; J1459

== ENCOUNTER → 2021-09-11 08:45 | Outpatient (BNVA) | payer MEDICARE, BC, SELFPAY | PROVIDERS: PCP Family Medicine; Referring Provider Family Medicine; Visit Provider Psychiatry & Neurology Neurology | DX: G70.00 Myasthenia gravis without (acute) exacerbation (principal); G62.9 Polyneuropathy, unspecified; E11.9 Type 2 diabetes mellitus without complications | CPT/HCPCS: 99214 ==

== ENCOUNTER 2021-09-20 01:38 | Outpatient (RCR) | payer MEDICARE, BC, SELFPAY ==
[2021-08-30 00:02] VITALS: BP 187/89; PULSE 61; RESP 17; TEMP 36.5
[2021-09-18 08:20] VITALS: BP 154/74; PULSE 69; RESP 18; TEMP 36.9; O2SAT 96
[2021-09-18] MEDS: Normal Saline Flush 10 ML SYR IVP (08:28)
[2021-09-18] MEDS: IMMUNE GLOBULIN 5 GM/50 ML BTL IVPB (08:28)
[2021-09-18 08:45] VITALS: BP 142/72; PULSE 67; RESP 17; TEMP 36; O2SAT 95
[2021-09-18] MEDS: IMMUNE GLOBULIN 20 GM/200 ML BTL IVPB (08:53)
[2021-09-18 09:00] VITALS: BP 141/76; PULSE 64; RESP 17; TEMP 35.9; O2SAT 96
[2021-09-18 09:30] VITALS: BP 143/74; PULSE 64; RESP 18; TEMP 36.3; O2SAT 96
[2021-09-18] MEDS: IMMUNE GLOBULIN 40 GM/400 ML BTL IVPB (09:53)
[2021-09-18 10:02] VITALS: BP 171/73; PULSE 66; RESP 16; TEMP 36.8; O2SAT 97
[2021-09-18 10:33] VITALS: BP 143/55; PULSE 64; RESP 18; TEMP 37.1; O2SAT 98
[2021-09-19 08:20] VITALS: BP 136/75; PULSE 69; RESP 17; TEMP 36.1; O2SAT 97
[2021-09-19] MEDS: IMMUNE GLOBULIN 5 GM/50 ML BTL IVPB (08:27)
[2021-09-19] MEDS: Normal Saline Flush 10 ML SYR IVP (08:27)
[2021-09-19 08:44] VITALS: BP 137/73; PULSE 65; RESP 16; TEMP 36.9; O2SAT 98
[2021-09-19] MEDS: IMMUNE GLOBULIN 20 GM/200 ML BTL IVPB (08:55)
[2021-09-19 08:59] VITALS: BP 138/69; PULSE 63; RESP 16; TEMP 37; O2SAT 96
[2021-09-19 09:30] VITALS: BP 159/77; PULSE 60; RESP 18; TEMP 36.9; O2SAT 98
[2021-09-19 09:30] LABS: CREATININE 1.2 mg/dL (0.70-1.30); Estimated GFR 59.35 (mL/min/1.73m2)
[2021-09-19] MEDS: IMMUNE GLOBULIN 40 GM/400 ML BTL IVPB (09:51)
[2021-09-19 10:00] VITALS: BP 157/80; PULSE 63; RESP 16; TEMP 37.2; O2SAT 98
[2021-09-19 10:30] VITALS: BP 159/67; PULSE 62; RESP 16; TEMP 37.2; O2SAT 98
[2021-09-20 08:05] VITALS: BP 151/70; PULSE 48; RESP 17; TEMP 36.7; O2SAT 97
[2021-09-20] MEDS: Normal Saline Flush 10 ML SYR IVP (08:09)
[2021-09-20] MEDS: IMMUNE GLOBULIN 5 GM/50 ML BTL IVPB (08:09)
[2021-09-20 08:30] VITALS: BP 134/67; PULSE 64; RESP 17; TEMP 36.4; O2SAT 97
[2021-09-20 08:45] VITALS: BP 141/68; PULSE 64; RESP 16; TEMP 36.9; O2SAT 96
[2021-09-20] MEDS: IMMUNE GLOBULIN 20 GM/200 ML BTL IVPB (08:45)
[2021-09-20 09:15] VITALS: BP 147/68; PULSE 64; RESP 17; TEMP 36.5; O2SAT 97
[2021-09-20] MEDS: IMMUNE GLOBULIN 40 GM/400 ML BTL IVPB (09:41)
[2021-09-20 09:45] VITALS: BP 156/76; PULSE 57; RESP 17; TEMP 36.5; O2SAT 97
[2021-09-20 10:15] VITALS: BP 171/75; PULSE 65; RESP 17; TEMP 36.6; O2SAT 98
== END 2021-09-29 23:59 | disposition home or self-care (01) ==
LOC: INF 01:38
PROVIDERS: PCP Family Medicine; Visit Provider Psychiatry & Neurology Neurology
DX: G70.01 Myasthenia gravis with (acute) exacerbation (principal)
CPT/HCPCS: 36415; 96365; 96366; 82565; J1459

== ENCOUNTER 2021-10-30 02:23 | Outpatient (RCR) | payer MEDICARE, BC, SELFPAY ==
[2021-09-30 00:16] VITALS: BP 171/75; PULSE 65; RESP 17; TEMP 36.6
[2021-10-30] VITALS (7 sets, daily range): BP systolic 127–153; BP diastolic 60–79; PULSE 52–58; RESP 16–17; TEMP 36.5–37.2; O2SAT 95–100
[2021-10-30] MEDS: IMMUNE GLOBULIN 20 GM/200 ML BTL IVPB (08:00)
[2021-10-30] MEDS: Normal Saline Flush 10 ML SYR IVP (08:02)
[2021-10-30] MEDS: IMMUNE GLOBULIN 40 GM/400 ML BTL IVPB (09:21)
== END 2021-10-30 23:59 | disposition home or self-care (01) ==
LOC: INF 02:23
PROVIDERS: PCP Family Medicine; Visit Provider Psychiatry & Neurology Neurology
DX: G70.01 Myasthenia gravis with (acute) exacerbation (principal)
CPT/HCPCS: 96365; 96366; J1459

== ENCOUNTER 2021-11-01 01:05 | Outpatient (RCR) | payer MEDICARE, BC, SELFPAY ==
[2021-10-31] VITALS (7 sets, daily range): BP systolic 132–154; BP diastolic 52–78; PULSE 50–58; RESP 16–17; TEMP 36.5–36.8; O2SAT 98–99
[2021-10-31] MEDS: Normal Saline Flush 10 ML SYR IVP (08:17)
[2021-10-31] MEDS: IMMUNE GLOBULIN 20 GM/200 ML BTL IVPB (08:32)
[2021-10-31 08:49] LABS: CREATININE 1.2 mg/dL (0.70-1.30); Estimated GFR 63.85 (mL/min/1.73m2)
[2021-10-31] MEDS: IMMUNE GLOBULIN 40 GM/400 ML BTL IVPB (09:56)
[2021-11-01] VITALS (7 sets, daily range): BP systolic 138–153; BP diastolic 51–72; PULSE 50–55; RESP 16–17; TEMP 36.5–37; O2SAT 97–98
[2021-11-01] MEDS: IMMUNE GLOBULIN 20 GM/200 ML BTL IVPB (08:14)
[2021-11-01] MEDS: Normal Saline Flush 10 ML SYR IVP (08:14)
[2021-11-01] MEDS: IMMUNE GLOBULIN 40 GM/400 ML BTL IVPB (09:31)
== END 2021-11-29 23:59 | disposition home or self-care (01) ==
LOC: INF 01:05
PROVIDERS: PCP Family Medicine; Visit Provider Psychiatry & Neurology Neurology
DX: G70.01 Myasthenia gravis with (acute) exacerbation (principal)
CPT/HCPCS: 96365; 96366; 82565; J1459

== ENCOUNTER 2021-12-13 01:26 | Outpatient (RCR) | payer MEDICARE, BC, SELFPAY ==
[2021-11-30 00:05] VITALS: BP 148/63; PULSE 54; RESP 17; TEMP 36.5
[2021-12-11 07:55] VITALS: BP 164/74; PULSE 56; RESP 18; TEMP 36.7; O2SAT 98
[2021-12-11] MEDS: IMMUNE GLOBULIN 20 GM/200 ML BTL IVPB (07:56)
[2021-12-11] MEDS: Normal Saline Flush 10 ML SYR IVP (07:57)
[2021-12-11 08:10] VITALS: BP 150/64; PULSE 56; RESP 18; TEMP 36.8; O2SAT 97
[2021-12-11 08:25] VITALS: BP 147/66; PULSE 52; RESP 18; TEMP 36.6; O2SAT 98
[2021-12-11 08:55] VITALS: BP 156/67; PULSE 53; RESP 18; TEMP 36.1; O2SAT 98
[2021-12-11] MEDS: IMMUNE GLOBULIN 40 GM/400 ML BTL IVPB (09:09)
[2021-12-11 09:25] VITALS: BP 157/71; PULSE 54; RESP 18; TEMP 36.7; O2SAT 99
[2021-12-11 10:00] VITALS: BP 180/82; PULSE 59; RESP 18; TEMP 36.4; O2SAT 99
[2021-12-12] MEDS: Normal Saline Flush 10 ML SYR IVP (07:52)
[2021-12-12] MEDS: IMMUNE GLOBULIN 20 GM/200 ML BTL IVPB (07:53)
[2021-12-12 08:03] VITALS: BP 162/67; PULSE 63; RESP 18; TEMP 36.7; O2SAT 97
[2021-12-12 08:15] VITALS: BP 160/58; PULSE 61; RESP 17; TEMP 36.9; O2SAT 98
[2021-12-12 08:45] VITALS: BP 157/69; PULSE 63; RESP 17; TEMP 37; O2SAT 98
[2021-12-12 08:50] LABS: CREATININE 1.3 mg/dL (0.70-1.30); Estimated GFR 58.01 (mL/min/1.73m2)
[2021-12-12 09:15] VITALS: BP 153/59; PULSE 59; RESP 17; TEMP 37; O2SAT 98
[2021-12-12] MEDS: IMMUNE GLOBULIN 40 GM/400 ML BTL IVPB (09:17)
[2021-12-12 09:45] VITALS: BP 169/79; PULSE 60; RESP 17; TEMP 36.7; O2SAT 96
[2021-12-13] MEDS: Normal Saline Flush 10 ML SYR IVP (07:53)
[2021-12-13] MEDS: IMMUNE GLOBULIN 20 GM/200 ML BTL IVPB (07:53)
[2021-12-13 07:55] VITALS: BP 164/75; PULSE 58; RESP 18; TEMP 36.7; O2SAT 99
[2021-12-13 08:15] VITALS: BP 140/63; PULSE 64; RESP 18; TEMP 36.7; O2SAT 98
[2021-12-13 08:30] VITALS: BP 145/52; PULSE 60; RESP 17; TEMP 37.1; O2SAT 97
[2021-12-13 09:00] VITALS: BP 166/71; PULSE 62; RESP 17; TEMP 37.1; O2SAT 99
[2021-12-13] MEDS: IMMUNE GLOBULIN 40 GM/400 ML BTL IVPB (09:16)
[2021-12-13 09:30] VITALS: BP 160/74; PULSE 60; RESP 17; TEMP 37.1; O2SAT 97
[2021-12-13 10:00] VITALS: BP 152/76; PULSE 61; RESP 17; TEMP 37; O2SAT 98
== END 2021-12-30 23:59 | disposition home or self-care (01) ==
LOC: INF 01:26
PROVIDERS: PCP Family Medicine; Visit Provider Psychiatry & Neurology Neurology
DX: G70.01 Myasthenia gravis with (acute) exacerbation (principal)
CPT/HCPCS: 36415; 96365; 96366; 82565; J1459

== ENCOUNTER 2022-01-29 03:12 | Outpatient (RCR) | payer MEDICARE, BC, SELFPAY ==
[2021-12-31 00:03] VITALS: BP 152/76; PULSE 61; RESP 17; TEMP 37
[2022-01-29] MEDS: Normal Saline Flush 10 ML SYR IVP (08:02)
[2022-01-29] MEDS: IMMUNE GLOBULIN 20 GM/200 ML BTL IVPB (08:02)
[2022-01-29 08:05] VITALS: BP 145/48; PULSE 65; RESP 17; TEMP 36.3; O2SAT 99
[2022-01-29 08:25] VITALS: BP 130/67; PULSE 57; RESP 17; TEMP 36.4; O2SAT 98
[2022-01-29 08:40] VITALS: BP 115/49; PULSE 54; RESP 17; TEMP 36.6; O2SAT 97
[2022-01-29 09:10] VITALS: BP 133/67; PULSE 30; RESP 17; TEMP 36.4; O2SAT 98
[2022-01-29] MEDS: IMMUNE GLOBULIN 40 GM/400 ML BTL IVPB (09:25)
[2022-01-29 09:40] VITALS: BP 138/78; PULSE 36; RESP 17; TEMP 36.5; O2SAT 99
[2022-01-29 10:10] VITALS: BP 132/62; PULSE 36; RESP 17; TEMP 35.7; O2SAT 99
== END 2022-01-29 23:59 | disposition home or self-care (01) ==
LOC: INF 03:12
PROVIDERS: PCP Family Medicine; Visit Provider Psychiatry & Neurology Neurology
DX: G70.01 Myasthenia gravis with (acute) exacerbation (principal)
CPT/HCPCS: 96365; 96366; J1459

== ENCOUNTER 2022-01-31 01:53 | Outpatient (RCR) | payer MEDICARE, BC, SELFPAY ==
[2022-01-30] VITALS (8 sets, daily range): BP systolic 130–140; BP diastolic 60–85; PULSE 32–56; RESP 17; TEMP 35.7–37.2; O2SAT 96–99
[2022-01-30] MEDS: IMMUNE GLOBULIN 20 GM/200 ML BTL IVPB (08:05)
[2022-01-30] MEDS: Normal Saline Flush 10 ML SYR IVP (08:06)
[2022-01-30 08:39] LABS: Hemoglobin A1C 6.8 % (<5.7)
[2022-01-30 08:46] LABS: CREATININE 1.3 mg/dL (0.70-1.30); Estimated GFR 58.01 (mL/min/1.73m2); FREE T4 1.01 ng/dL (0.76-1.46); TSH 3.59 uIU/mL (0.36-3.74)
[2022-01-30] MEDS: IMMUNE GLOBULIN 40 GM/400 ML BTL IVPB (09:34)
[2022-01-30 10:38] LABS: COMMENT (LAB VIEW ONLY) 92.89 mg/dL
[2022-01-31 07:55] VITALS: BP 132/62; PULSE 61; RESP 17; TEMP 35.9; O2SAT 98
[2022-01-31] MEDS: Normal Saline Flush 10 ML SYR IVP (08:13)
[2022-01-31] MEDS: IMMUNE GLOBULIN 20 GM/200 ML BTL IVPB (08:19)
[2022-01-31 08:40] VITALS: BP 124/52; PULSE 56; RESP 17; TEMP 36.6; O2SAT 99
[2022-01-31 08:55] VITALS: BP 144/60; PULSE 38; RESP 17; TEMP 36; O2SAT 96
[2022-01-31 09:25] VITALS: BP 132/64; PULSE 56; RESP 17; TEMP 36.4; O2SAT 97
[2022-01-31] MEDS: IMMUNE GLOBULIN 40 GM/400 ML BTL IVPB (09:37)
[2022-01-31 09:55] VITALS: BP 134/62; PULSE 52; RESP 17; TEMP 36.6; O2SAT 98
[2022-01-31 10:23] VITALS: BP 140/62; PULSE 30; RESP 17; TEMP 36.2; O2SAT 99
== END 2022-03-01 23:59 | disposition home or self-care (01) ==
LOC: INF 01:53
PROVIDERS: Internal Medicine Endocrinology, Diabetes & Metabolism; PCP Family Medicine; Visit Provider Psychiatry & Neurology Neurology
DX: E10.8 Type 1 diabetes mellitus with unspecified complications (principal); G70.01 Myasthenia gravis with (acute) exacerbation
CPT/HCPCS: 96365; 96366; 82043; 82565; 82570; 83036; 84439; 84443; J1459

== ENCOUNTER → 2022-02-12 08:58 | Outpatient (BNVA) | payer MEDICARE, BC, SELFPAY | PROVIDERS: PCP Family Medicine; Referring Provider Family Medicine; Visit Provider Psychiatry & Neurology Neurology | DX: E11.9 Type 2 diabetes mellitus without complications (principal); I10 Essential (primary) hypertension; G70.00 Myasthenia gravis without (acute) exacerbation; G62.9 Polyneuropathy, unspecified | CPT/HCPCS: 99214 ==

== ENCOUNTER 2022-03-13 12:30 | Outpatient (CLI) | payer MEDICARE, BC, SELFPAY ==
--- NOTE | 2022-03-13 12:30 | RT.EKG_ITS ---
APPROVED REPORT Exam: Resting ECG Reason for Exam: BRADYCARDIA Patient Location: O HR:88 bpm ECG Measurements Heart Rate 88 AXIS SC 144 P 12 QRSd 107 QRS 22 QT 417 T 30 QTc 505 Conclusion Sinus rhythm...normal P axis, V-rate 50- 99 ventricular premature complexes. Otherwise normal
--- NOTE | 2022-03-13 12:30 | HOLTER_ITS ---
APPROVED REPORT Conclusion This is a 24-hour Holter monitor Rhythm throughout was sinus with an average heart rate of 73. Minimum was 57, maximum 108 There were rare atrial premature beats There were moderately frequent ventricular ectopic beats, comprising 7.9% of total. There were occas ional couplets. There was no ventricular tachycardia There was no atrial fibrillation, no SVT, no high-grade AV block, no pauses greater than 3 seconds No patient symptoms were reported
== END 2022-03-13 12:31 | disposition home or self-care (01) ==
LOC: CARDOPNVT 12:30
PROVIDERS: PCP Family Medicine; Visit Provider Psychiatry & Neurology Neurology
DX: R00.1 Bradycardia, unspecified (principal); R94.31 Abnormal electrocardiogram [ECG] [EKG]; I49.3 Ventricular premature depolarization
CPT/HCPCS: 93005; 93010; 93225; 93226

== ENCOUNTER 2022-03-14 00:59 | Outpatient (RCR) | payer MEDICARE, BC, SELFPAY ==
[2022-03-02 00:20] VITALS: BP 140/62; PULSE 30; RESP 17; TEMP 36.2
[2022-03-12 08:05] VITALS: BP 155/60; PULSE 60; RESP 18; TEMP 35.9; O2SAT 99
[2022-03-12] MEDS: IMMUNE GLOBULIN 5 GM/50 ML BTL 0.9 GM IVPB (08:05)
[2022-03-12] MEDS: Normal Saline Flush 10 ML SYR IVP (08:06)
[2022-03-12 08:10] VITALS: BP 144/52; PULSE 41; RESP 18; TEMP 37.2; O2SAT 97
[2022-03-12 08:25] VITALS: BP 130/36; PULSE 61; RESP 17; TEMP 36.2; O2SAT 99
[2022-03-12] MEDS: IMMUNE GLOBULIN 20 GM/200 ML BTL IVPB (08:44)
[2022-03-12 08:45] VITALS: BP 130/38; PULSE 60; RESP 18; TEMP 36.5; O2SAT 99
[2022-03-12 09:15] VITALS: BP 148/52; PULSE 38; RESP 16; TEMP 36.2; O2SAT 99
[2022-03-12] MEDS: IMMUNE GLOBULIN 40 GM/400 ML BTL IVPB (09:37)
[2022-03-12 09:45] VITALS: BP 144/60; PULSE 29; RESP 16; TEMP 35.8; O2SAT 97
[2022-03-13] VITALS (10 sets, daily range): BP systolic 144–193; BP diastolic 40–79; PULSE 31–65; RESP 16–18; TEMP 36.3–36.8; O2SAT 98–100
[2022-03-13] MEDS: IMMUNE GLOBULIN 5 GM/50 ML BTL IVPB (08:22)
[2022-03-13] MEDS: IMMUNE GLOBULIN 20 GM/200 ML BTL IVPB (09:01)
[2022-03-13] MEDS: IMMUNE GLOBULIN 40 GM/400 ML BTL IVPB (10:12)
[2022-03-13] MEDS: Normal Saline Flush 10 ML SYR IVP (10:37)
[2022-03-13 11:20] LABS: CREATININE 1.4 mg/dL (0.70-1.30); Estimated GFR 52.74 (mL/min/1.73m2)
[2022-03-14] VITALS (8 sets, daily range): BP systolic 110–144; BP diastolic 42–64; PULSE 32–64; RESP 16–17; TEMP 36.1–36.9; O2SAT 96–98
[2022-03-14] MEDS: IMMUNE GLOBULIN 5 GM/50 ML BTL IVPB (08:09)
[2022-03-14] MEDS: Normal Saline Flush 10 ML SYR IVP (08:10)
[2022-03-14] MEDS: IMMUNE GLOBULIN 20 GM/200 ML BTL IVPB (08:44)
[2022-03-14] MEDS: IMMUNE GLOBULIN 40 GM/400 ML BTL IVPB (10:00)
== END 2022-04-01 23:59 | disposition home or self-care (01) ==
LOC: INF 00:59
PROVIDERS: PCP Family Medicine; Visit Provider Psychiatry & Neurology Neurology
DX: G70.01 Myasthenia gravis with (acute) exacerbation (principal)
CPT/HCPCS: 36415; 96365; 96366; 82565; 93005; 93225; J1459

== ENCOUNTER → 2022-03-18 09:06 | Outpatient (BNVA) | payer MEDICARE, BC, SELFPAY | PROVIDERS: PCP Family Medicine; Referring Provider Family Medicine; Visit Provider Urology | DX: Z08 Encounter for follow-up examination after completed treatment for malignant neoplasm (principal); Z85.51 Personal history of malignant neoplasm of bladder; N40.1 Benign prostatic hyperplasia with lower urinary tract symptoms; R35.1 Nocturia | CPT/HCPCS: 52000; 99213 ==

== ENCOUNTER → 2022-03-24 08:51 | Outpatient (BNVA) | payer MEDICARE, BC, SELFPAY | PROVIDERS: PCP Family Medicine; Referring Provider Family Medicine; Visit Provider Psychiatry & Neurology Neurology | DX: E11.9 Type 2 diabetes mellitus without complications (principal); I10 Essential (primary) hypertension; G70.00 Myasthenia gravis without (acute) exacerbation; G62.9 Polyneuropathy, unspecified; R00.1 Bradycardia, unspecified | CPT/HCPCS: 99214 ==

== ENCOUNTER 2022-03-27 12:55 | Outpatient (CLI) | payer MEDICARE, BC, SELFPAY | END 2022-03-27 12:56 | disposition home or self-care (01) | PROVIDERS: PCP Family Medicine; Visit Provider Psychiatry & Neurology Neurology | DX: R00.1 Bradycardia, unspecified (principal) | CPT/HCPCS: 93270 ==

== ENCOUNTER 2022-04-25 01:17 | Outpatient (RCR) | payer MEDICARE, BC, SELFPAY ==
[2022-04-02 00:17] VITALS: BP 144/62; PULSE 56; RESP 16; TEMP 36.3
[2022-04-23] MEDS: IMMUNE GLOBULIN 5 GM/50 ML BTL IV (08:04)
[2022-04-23] MEDS: Normal Saline Flush 10 ML SYR IVP (08:05)
[2022-04-23 08:10] VITALS: BP 138/60; PULSE 56; RESP 17; TEMP 36.6; O2SAT 98
[2022-04-23 08:25] VITALS: BP 135/47; PULSE 55; RESP 17; TEMP 36.6; O2SAT 99
[2022-04-23] MEDS: IMMUNE GLOBULIN 20 GM/200 ML BTL IV (08:43)
[2022-04-23 08:46] VITALS: BP 156/78; PULSE 42; RESP 18; TEMP 36.1; O2SAT 98
[2022-04-23 09:20] VITALS: BP 159/67; PULSE 60; RESP 17; TEMP 36.4; O2SAT 98
[2022-04-23] MEDS: IMMUNE GLOBULIN 40 GM/400 ML BTL IV (09:44)
[2022-04-23 09:52] VITALS: BP 148/67; PULSE 64; RESP 17; TEMP 36.7; O2SAT 98
[2022-04-24] VITALS (7 sets, daily range): BP systolic 123–155; BP diastolic 55–80; PULSE 50–66; RESP 17–18; TEMP 36.5–36.9; O2SAT 98–99
[2022-04-24] MEDS: IMMUNE GLOBULIN 5 GM/50 ML BTL IV (08:22)
[2022-04-24] MEDS: Normal Saline Flush 10 ML SYR IVP (08:23)
[2022-04-24 08:39] LABS: Abs Immature Grans 0.01 10^3/uL (0.0-0.06); Absolute Basophil Count 0.04 10^3/uL (0.0-0.2); Absolute Lymphocyte Count 0.92 10^3/uL (1.2-3.4); Absolute Monocyte Count 0.63 10^3/uL (0.1-0.8); Absolute Neutrophil Count 3.24 10^3/uL (1.2-6.7); Basophils % 0.8; HCT 36.8 % (40.0-50.0); HGB 11.7 g/dL (13.5-17.5); Immature Grans % 0.2; Lymphocytes % 18.6; MCH 29.6 pg (27.0-33.0); MCHC 31.8 % (32.0-36.0); MCV 93 fL (80-95); MPV 10.8 fL (8.0-11.0); Monocytes % 12.8; Neutrophils % 65.6; Platelet Count 224 10^3/uL (130-400); RBC 3.95 10^6/uL (4.36-5.78); RDW 12.8 % (11.8-14.1); RDW-SD 44.2 fL; WBC 4.94 10^3/uL (4.4-10.8)
[2022-04-24 08:50] LABS: Albumin 3.5 g/dL (3.4-5.0); Anion Gap 3.5 mmol/L (3-11); BUN 23 mg/dL (7-18); CO2 32.5 mmol/L (21.0-32.0); CREATININE 1.3 mg/dL (0.70-1.30); Chloride 103 mmol/L (98-107); Estimated GFR 57.65 (mL/min/1.73m2); Glucose 58 mg/dL (74-106); Potassium 3.9 mmol/L (3.5-5.1); Sodium 139 mmol/L (136-145)
[2022-04-24] MEDS: IMMUNE GLOBULIN 20 GM/200 ML BTL IV (09:01)
[2022-04-24] MEDS: IMMUNE GLOBULIN 40 GM/400 ML BTL IV (10:00)
[2022-04-24 12:34] LABS: COMMENT (LAB VIEW ONLY) 98.96 mg/dL; PROTEIN 60.6 mg/dL; Prot/Crea Ur Ratio 0.61
[2022-04-24 12:47] LABS: COMMENT (LAB VIEW ONLY) 96.22 mg/dL
[2022-04-24 18:08] LABS: PSA, Diagnostic 2.1 ng/mL (<=6.5)
[2022-04-24 18:10] LABS: Parathyroid Hormone,Intact 34 pg/mL (19-88)
[2022-04-25] VITALS (7 sets, daily range): BP systolic 145–167; BP diastolic 54–73; PULSE 30–62; RESP 16–18; TEMP 36.4–37.5; O2SAT 98–100
[2022-04-25] MEDS: Normal Saline Flush 10 ML SYR IVP (08:00)
[2022-04-25] MEDS: IMMUNE GLOBULIN 5 GM/50 ML BTL IV (08:09)
[2022-04-25] MEDS: IMMUNE GLOBULIN 20 GM/200 ML BTL IV (08:42)
[2022-04-25] MEDS: IMMUNE GLOBULIN 40 GM/400 ML BTL IV (09:40)
== END 2022-04-29 23:59 | disposition home or self-care (01) ==
LOC: INF 01:17
PROVIDERS: Internal Medicine Nephrology; Urology; PCP Family Medicine; Visit Provider Psychiatry & Neurology Neurology
DX: N40.1 Benign prostatic hyperplasia with lower urinary tract symptoms (principal); R35.1 Nocturia; G70.01 Myasthenia gravis with (acute) exacerbation
CPT/HCPCS: 80048; 96365; 96366; 82040; 82043; 82565; 82570; 83970; 84132; 84153; 84156; 85025; J1459

== ENCOUNTER 2022-05-01 12:41 | Outpatient (CLI) | payer MEDICARE, BC, SELFPAY ==
--- NOTE | 2022-05-02 09:10 | W.CARDEVENT ---
Date of service: 05/02/22 Time of Service: 09:11 Cardiac Event Recorder Referring Provider:: Kaya Lafleur Indications:: Bradycardia Cardiac Event Note: This is a 30-day cardiac event monitor reportedly ordered for bradycardia Predominant rhythm was sinus with an average heart rate of 77. Minimum was 57, maximum 107 . There was no atrial fibrillation, no high-grade AV block, no pauses greater than 3 seconds There were occasional premature ventricular contractions, rare couplets. There were several 3-4 beat runs of nonsustained ventricular tachycardia Some of the patient's symptoms of lightheadedness and dizziness appear to correlate to PVCs superimposed on sinus rhythm
== END 2022-05-01 12:42 | disposition home or self-care (01) ==
LOC: CARDOPNVT 12:41
PROVIDERS: PCP Family Medicine; Visit Provider Internal Medicine Cardiovascular Disease
DX: R00.1 Bradycardia, unspecified (principal)
CPT/HCPCS: 93272

== ENCOUNTER 2022-05-06 06:49 | Emergency (ER) | payer MEDICARE, BC, SELFPAY ==
[2022-05-06] VITALS (11 sets, daily range): BP systolic 144–199; BP diastolic 64–139; PULSE 75–100; RESP 14–19; O2SAT 95–100
--- NOTE | 2022-05-06 06:30 | RT.EKG_ITS ---
APPROVED REPORT Exam: Resting ECG Reason for Exam: dizziness Patient Location: E HR:90 bpm ECG Measurements Heart Rate 90 AXIS [place] 174 P 59 QRSd 106 QRS 4 QT 401 T 42 QTc 489 Conclusion Sinus rhythm...normal P axis, V-rate 60- 99 Ventricular premature complex...V complex w/ short R-R interval Probable left atrial enlargement...P >50mS, <-0.10mV V1 Physician: no stemi
[2022-05-06] MEDS: diazePAM 10 MG/2 ML SYR (07:00)
--- NOTE | 2022-05-06 07:02 | W.ED.GENAD ---
Discharge Plan Disposition Patient Disposition: Home Condition: Good Discharge Details Clinical Impression: Episodic peripheral vertigo Primary Care Provider: Rocky Porter ED Provider: Rupesh Sen Home Meds and New Rx's Prescriptions: New meclizine 25 mg tablet 25 mg PO TID Qty: 30 0RF No Action levothyroxine 75 mcg capsule 75 mcg PO DAILY sulfasalazine 500 mg tablet 1,500 mg PO BID insulin lispro [Humalog U-100 Insulin] 100 unit/mL solution 10 - 15 unit SC TID diclofenac sodium [Voltaren Arthritis Pain] 1 % gel 2 g topical .COMPLEX PRN Rx Instructions: 2 grams topical as needed; apply to single elbow, wrist or hand; for hand includes palm/fingers/back of hand mycophenolate mofetil 500 mg tablet 1,000 mg PO BID Qty: 360 3RF pyridostigmine bromide [Mestinon] 60 mg tablet 120 mg PO TID Qty: 720 3RF Rx Instructions: Take Mestinon 120mg at 6am, 2pm, and bedtime. chlorthalidone 25 mg tablet 12.5 mg PO Q OTHER DAY doxazosin 1 mg tablet 1 mg PO QHS insulin glargine [Lantus U-100 Insulin] 100 unit/mL solution 28 unit subcut BID Humulin N NPH U-100 Insulin 100 unit/mL suspension See Rx Instructions SC DIRECTED Rx Instructions: subcutaneously as directed; 5 units in AM, 15 units PM (DME) OneTouch Ultra Test 1 EACH strip 1 ea Miscellaneous 5X DAILY Qty: 100 Rx Instructions: 250.01 (DME) Easy Touch Insulin Safety Syr 1 EACH syringe 1 ea SQ DIRECTED Qty: 700 Rx Instructions: USE WITH INSULIN 7 X DAILY aspirin [Aspir-81] 81 mg tablet,delayed release (DR/EC) 81 mg PO DAILY lisinopril 40 mg tablet 40 mg PO DAILY Qty: 90 3RF rosuvastatin [Crestor] 10 mg tablet 10 mg PO DAILY Qty: 90 3RF amlodipine 10 mg tablet 10 mg PO DAILY Qty: 90 3RF spironolactone 25 mg tablet 25 mg PO DAILY Qty: 90 3RF Discharge Instructions Instructions: Vertigo (ED) Additional Instructions: At this time your symptoms are consistent with peripheral vertigo. Please stay well-hydrated, drink plenty of fluids, and take the meclizine as directed. It has been sent to your pharmacy on file. If you notice any worsening of your symptoms, or any new symptoms such as vomiting, diarrhea, fever, chills, shortness of breath, chest pain, numbness, weakness, or fainting , please return immediately to the emergency department for reevaluation. Please follow up with your primary care provider as soon as possible for reassessment and reevaluation. As always, it was a pleasure participating in your medical care today. Referrals: Rocky Porter MD [Primary Care Provider] - Medical Decision Making 72-year-old male with a past medical history of bradycardia, type 1 diabetes, peripheral neuropathy, GERD, hypertension, Crohn's disease, myasthenia gravis, presents today for evaluation of dizziness and vomiting. Patient states that at 3 AM which was 4 hours ago, he woke up out of sleep extremely dizzy nauseous and vomiting. He felt like the world was spinning in a horizontal fashion. He denies any tinnitus or ringing. Symptoms continued for the next 4 hours till he called EMS. He denies any chest pain, headache, or vision changes. He denies ever having symptoms like this before. He denies any history of stroke, numbness, tingling or weakness. He denies any new medications. No recent falls or trauma. No other complaints at this time. Physical exam demonstrates a nauseous and vomiting male. No complaint of headache. No horizontal vertical or rotatory nystagmus, which is slightly atypical. However he does have a notable positive head impulse test which significantly worsens his symptoms. Test of skew is also negative. The remainder of his neurologic assessment is unremarkable. We were not able to perform a gait study however because of his nausea. Differential is highest for a peripheral vertigo etiology, however central vertigo is on the differential with his risk factors. It seems notably less likely, but we will get a CT scan for further assessment of major stroke or bleed. Will give meclizine and Valium and Zofran. Will monitor closely and reassess. EKG is stable. 8:17 AM Laboratory work-up has returned normal, CT scan per virtual radiology demonstrates no evidence of acute process stroke or bleed. Patient otherwise looks clinically well. On reassessment his symptoms have completely resolved. He feels well. I did get him up and ambulated throughout the department well with no wide-based gait or ataxia. Symptoms consistent with peripheral vertigo at this time. Symptoms clinically inconsistent with cerebellar stroke. Patient stable for discharge. at bedside. I have extensively reviewed the treatment plan and discharge instructions with the patient. I have addressed all patient concerns at this time. The patient was made aware of what symptoms to monitor for that would warrant a return to the emergency department. Discussed the plan with the patient, they demonstrate verbal understanding and agreement with our assessment and plan at this time. The documentation in this chart was dictated using [employer] dictation software. Please excuse any dictation errors. FINDINGS: Brain: No intracranial hemorrhage, edema or other acute abnormality is seen in the brain. There is moderate generalized chronic atrophy with prominence of the ventricles and sulci. No mass effect or midline shift. Cerebral ventricles: The ventricles are prominent consistent with chronic atrophy. Paranasal sinuses: Visualized sinuses are unremarkable. No fluid levels. Mastoid air cells: Visualized mastoid air cells are well aerated. Bones/joints: Unremarkable. No acute fracture. Soft tissues: Unremarkable. IMPRESSION: No acute intracranial abnormality Thank you for allowing us to participate in the care of your patient. Dictated and Authenticated by: Los Samuel MD 05/06/2022 7:45 AM Eastern Time ([place] & [place]) HPI General Date/Time Provider Initiated Documentation: 05/06/22 06:56. HPI Narrative: 72-year-old male with a past medical history of bradycardia, type 1 diabetes, peripheral neuropathy, GERD, hypertension, Crohn's disease, myasthenia gravis, presents today for evaluation of dizziness and vomiting. Patient states that at 3 AM which was 4 hours ago, he woke up out of sleep extremely dizzy nauseous and vomiting. He felt like the world was spinning in a horizontal fashion. He denies any tinnitus or ringing. Symptoms continued for the next 4 hours till he called EMS. He denies any chest pain, headache, or vision changes. He denies ever having symptoms like this before. He denies any history of stroke, numbness, tingling or weakness. He denies any new medications. No recent falls or trauma. No other complaints at this time. Related Data Home Medications Medication Instructions Recorded Confirmed blood sugar diagnostic (OneTouch #100 strips 11/16/12 05/06/22 Ultra Test strips) insulin syringe,safetyneedle 1 mL #700 SYRGS 11/16/12 05/06/22 29 gauge x 1/2 (Easy Touch Insulin Safety Syringe) levothyroxine 75 mcg capsule 75 mcg PO DAILY 11/09/17 05/06/22 sulfasalazine 500 mg tablet 1,500 mg PO BID 05/28/18 05/06/22 insulin lispro 100 unit/mL 10 - 15 unit subcut TID 03/14/19 05/06/22 subcutaneous solution (Humalog U-100 Insulin) insulin glargine 100 unit/mL 28 unit subcut BID 01/19/20 05/06/22 subcutaneous solution (Lantus U-100 Insulin) aspirin 81 mg tablet,delayed 81 mg PO DAILY 03/19/20 05/06/22 release (Aspir-) diclofenac sodium 1 % topical gel 2 g topical .COMPLEX PRN 12/12/20 05/06/22 (Voltaren Arthritis Pain) lisinopril 40 mg tablet 40 mg PO DAILY #90 tabs 05/10/21 05/06/22 insulin NPH isoph U-100 human 100 See Rx Instructions subcut 09/11/21 05/06/22 unit/mL subcutaneous suspension DIRECTED (Humulin N NPH U-100 Insulin (isophane susp)) mycophenolate mofetil 500 mg tablet 1,000 mg PO BID #360 tabs 09/11/21 05/06/22 pyridostigmine bromide 60 mg 120 mg PO TID weakness #720 tabs 09/11/21 05/06/22 tablet (Mestinon) rosuvastatin 10 mg tablet (Crestor) 10 mg PO DAILY #90 tabs 01/14/22 05/06/22 chlorthalidone 25 mg tablet 12.5 mg PO Q OTHER DAY 02/12/22 05/06/22 amlodipine 10 mg tablet 10 mg PO DAILY #90 tabs 03/19/22 05/06/22 doxazosin 1 mg tablet 1 mg PO QHS 03/24/22 05/06/22 spironolactone 25 mg tablet 25 mg PO DAILY #90 tabs 04/10/22 05/06/22 meclizine 25 mg tablet 25 mg PO TID #30 tabs 05/06/22 Previous Rx's Medication Instructions Recorded lisinopril 40 mg tablet 40 mg PO DAILY #90 tabs 03/11/22 mycophenolate mofetil 500 mg tablet 1,000 mg PO BID #360 tabs 09/11/21 pyridostigmine bromide 60 mg 120 mg PO TID weakness #720 tabs 09/11/21 tablet (Mestinon) rosuvastatin 10 mg tablet (Crestor) 10 mg PO DAILY #90 tabs 01/14/22 amlodipine 10 mg tablet 10 mg PO DAILY #90 tabs 03/19/22 spironolactone 25 mg tablet 25 mg PO DAILY #90 tabs 04/10/22 meclizine 25 mg tablet 25 mg PO TID #30 tabs 05/06/22 Allergies Allergy/AdvReac Type Severity Reaction Status Date / Time prednisone AdvReac Severe severe Verified 05/06/22 06:56 dizziness, lightheaded and moderate SOB General Stated Complaint: Dizzy/Sync GINNY: 3 Review of Systems All systems reviewed & are unremarkable except as noted in HPI and below PFSH All Active Problems (Updated 05/06/22 @ 08:18 by Rupesh Sen DO) Episodic peripheral vertigo (Acute) Bradycardia (Acute) Impingement syndrome of right shoulder (Acute) Peripheral neuropathy (Acute) Type 1 diabetes (Acute) [place] [place]thritis of both hands (Acute) BPH associated with nocturia (Acute) Herpes zoster (Acute) Colon polyps (Acute) Mild nonproliferative diabetic retinopathy (Acute 03/09/10) Urothelial carcinoma of bladder (Acute ~03/08/18) 03/08/18 DR. MADRID-juan luis Abnormal CPK (Acute 11/16/13) Type 1 diabetes mellitus without complication (Acute 08/07/17) onset 1990. Retinopathy, neuropathy, nephropathy, Myasthenia gravis (Chronic 11/02/12) [facility] at [facility], and [facility] [place] treated with Mestinon, CellCept, and as needed IVIG infusion Hyperlipidemia (Acute) Gastroesophageal reflux disease with esophagitis (Acute) Essential hypertension (Acute) Crohn's disease (Acute) [place]ed[place] [facility] [place], colonoscopy every 2 years Medical History Acute appendicitis Crohn's disease Diabetes GERD (gastroesophageal reflux disease) HTN (hypertension) Hyperlipemia Surgical History History of cataract surgery Incision & Drainage, Abscess or Hematoma (07/29/16) perianal abscess S/P cystoscopy S/P laparoscopic appendectomy (~07/22/20) S/P skin cancer resection face 2017 Status post inguinal hernia repair left and right Family History Father AAA (abdominal aortic aneurysm) Social History Smoking/Tobacco Use Status: Current every day Tobacco Type: smokeless tobacco Tobacco: How many years used: 30 Smokeless tobacco user: snuff Second Hand Exposure: Yes Smoking risk assessment performed?: Yes Alcohol Intake: never Drug use: Never Substance use type: does not use Household members: spouse Communication Needs: Hard of Hearing Do you need help understanding health information?: Rarely 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 3.ENT: Atraumatic external nose and ears. Moist MM. Neck: Symmetric, trachea midline, No thyromegaly. 4.CVS: +S1/S2, No murmurs or gallops. Peripheral pulses 2+ and equal in all extremities. Brisk capillary refill in all extremities. 5.RESP: Unlabored respiratory effort. Clear to auscultation bilaterally. No wheezes rales or rhonchi 6.GI: Soft, Nontender/Nondistended, No hepatosplenomegaly. No guarding or rebound. 7.MSK: Normocephalic/Atraumatic, Extremities w/o deformity or ttp No cyanosis or clubbing, Normal movement of all extremities 8.Skin: Warm, Dry. No rashes or lesions. 9.Neuro: dental receptionist II-XII grossly intact. Sensation grossly intact, no focal neurologic deficits. All 6 cardinal planes of vision are fully intact. No evidence of rotatory or vertical nystagmus, that matter there is also no horizontal nystagmus either.. The patient demonstrated a normal [id number], good dexterity. There was no evidence of dysdiadochokinesia. Gait testing was not performed secondary to notable dizziness. Sensation was intact bilaterally as well as muscle strength bilaterally for all extremities. Patient was able to verbalize butter cup with no slurring, or miss pronunciation. Head impulse test notably worsened patient's symptoms. Test of skew demonstrates no vertical or horizontal correction. 10.Psych: (AAO) x3. Appropriate mood and affect Course Vital Signs Vital signs: Vital Signs Pulse 100 H 05/06/22 06:43 Respiratory Rate 16 05/06/22 06:43 Blood Pressure 199/82 H 05/06/22 06:43 Pulse Oximetry 95 05/06/22 06:43 Pulse 100 H 05/06/22 06:43 Respiratory Rate 16 05/06/22 06:43 Respiratory Effort Normal 05/06/22 06:53 Blood Pressure 199/82 H 05/06/22 06:43 Blood Pressure Position Sitting 05/06/22 06:43 Pulse Oximetry 95 05/06/22 06:43 Oxygen Delivery Method Room Air 05/06/22 06:43 Oxygen Flow Rate 0 05/06/22 06:43
[2022-05-06] MEDS: Normal Saline 1,000 ML 1000 ML IV (07:16)
[2022-05-06 07:17] LABS: Abs Immature Grans 0.04 10^3/uL (0.0-0.06); Absolute Basophil Count 0.03 10^3/uL (0.0-0.2); Absolute Eosinophil Count 0.01 10^3/uL (0.0-0.7); Absolute Lymphocyte Count 0.32 10^3/uL (1.2-3.4); Absolute Monocyte Count 0.23 10^3/uL (0.1-0.8); Absolute Neutrophil Count 8.56 10^3/uL (1.2-6.7); Basophils % 0.3; Eosinophils % 0.1; HCT 36.6 % (40.0-50.0); HGB 11.9 g/dL (13.5-17.5); Immature Grans % 0.4; Lymphocytes % 3.5; MCHC 32.5 % (32.0-36.0); MCV 92 fL (80-95); Monocytes % 2.5; Neutrophils % 93.2; Platelet Count 195 10^3/uL (130-400); RBC 3.97 10^6/uL (4.36-5.78); RDW 12.9 % (11.8-14.1); RDW-SD 43.3 fL; WBC 9.19 10^3/uL (4.4-10.8)
[2022-05-06 07:32] LABS: ALT 32 U/L (16-63); AST 32 U/L (15-37); Albumin 3.5 g/dL (3.4-5.0); Alkaline Phosphatase 60 U/L (46-116); Anion Gap 9.9 mmol/L (3-11); BUN 19 mg/dL (7-18); Bilirubin, Total 0.4 mg/dL (0.2-1.0); CO2 26.1 mmol/L (21.0-32.0); CREATININE 1.3 mg/dL (0.70-1.30); Calcium 8.8 mg/dL (8.5-10.1); Chloride 102 mmol/L (98-107); Estimated GFR 57.65 (mL/min/1.73m2); Glucose 293 mg/dL (74-106); Potassium 3.8 mmol/L (3.5-5.1); Sodium 138 mmol/L (136-145); Total Protein 8.4 g/dL (6.4-8.2)
--- NOTE | 2022-05-06 07:32 | DI.CT_ITS ---
Exam(s) CT HEAD WO EXAM: CT HEAD WO CLINICAL HISTORY: severe dizziness, rule out stroke/bleed. TECHNIQUE: Imaging Protocol: Axial computed tomography images with coronal and sagittal reformatted images were created and reviewed COMPARISON: CT SINUS CT WITHOUT CONTRAST from 03/03/2016 FINDINGS: There are no skull fractures. There is no fluid in the visualized paranasal sinuses. There is no evidence of intracranial hemorrhage, mass effect, or shift of midline structures. There are no extra-axial fluid collections. The ventricles are not enlarged or shifted and there is no blo od within the ventricular system nor within the basal cisterns. IMPRESSION: No acute intracranial findings on this noninfused CT scan of the brain. RADIATION DOSE DELIVERED: 858mGy.cm Total DLP DATA REPOSITORY: All CT scans at this facility are submitted to the National Radiology Data Registry (NRDR) Dose Index Registry (DIR) with the [employer] (A[employer]). RADIATION OPTIMIZATION: All CT scans at this facility use at least one of these dose optimization te chniques: automated exposure control; mA and/or kV adjustment per patient size (includes targeted exa ms where dose is matched to clinical indication); or iterative reconstruction.
--- NOTE | 2022-05-06 07:46 | DI.VRAD_ITS ---
PROCEDURE INFORMATION: Exam: CT Head Without Contrast Exam date and time: 05/06/2022 7:29 AM Age: 72 years old Clinical indication: Stroke-like symptoms; Dizziness/giddiness TECHNIQUE: Imaging protocol: Computed tomography of the head without contrast. Radiation optimization: All CT scans at this facility use at least one of these dose optimization techniques: automated exposure control; mA and/or kV adjustment per patient size (includes targeted exams where dose is matched to clinical indication); or iterative reconstruction. Other technique: STROKE PROTOCOL was implemented. COMPARISON: SINUS CT WITHOUT CONTRAST 03/03/2016 12:55 PM FINDINGS: Brain: No intracranial hemorrhage, edema or other acute abnormality is seen in the brain. There is moderate generalized chronic atrophy with prominence of the ventricles and sulci. No mass effect or midline shift. Cerebral ventricles: The ventricles are prominent consistent with chronic atrophy. Paranasal sinuses: Visualized sinuses are unremarkable. No fluid levels. Mastoid air cells: Visualized mastoid air cells are well aerated. Bones/joints: Unremarkable. No acute fracture. Soft tissues: Unremarkable. IMPRESSION: No acute intracranial abnormality. ASSESSMENT: ASPECTS ([place] Stroke Program Early CT Score) is 10. Dictated and Authenticated by: Los Samuel MD. Ordering:CHRISTIAN Goddard MD
[2022-05-06] MEDS: Meclizine 25 MG TAB PO (08:03)
--- NOTE | 2022-05-06 08:22 | NUR.NOTE ---
Nursing Note: Pt ambulated in hallway with steady gate. Pt denies nausea or dizziness during ambulation. MD with pt during ambulation.
== END 2022-05-06 08:45 | disposition home or self-care (01) ==
PROVIDERS: Emergency Provider Student in an Organized Health Care Education/Training Program; PCP Family Medicine
DX: H81.399 Other peripheral vertigo, unspecified ear (principal); E10.42 Type 1 diabetes mellitus with diabetic polyneuropathy; I10 Essential (primary) hypertension
CPT/HCPCS: 36415; 80053; 93005; 96361; 96374; 99284; 70450; 70551; 85025; 93010; J1200; J2060; J3360

== ENCOUNTER 2022-05-06 08:56 | Emergency (ER) | payer MEDICARE, BC, SELFPAY ==
[2022-05-06 09:08] VITALS: BP 178/81; PULSE 100; RESP 20; TEMP 36.5; O2SAT 99
[2022-05-06 09:14] VITALS: RESP 20
[2022-05-06] MEDS: LORazepam 2 MG/ML VIAL 1 MG IVP (09:25)
[2022-05-06] MEDS: Lactated Ringers 1,000 ML 1000 ML IV (09:25)
[2022-05-06] MEDS: diphenhydrAMINE 50 MG/ML VIAL 25 MG IVP (09:26)
--- NOTE | 2022-05-06 09:35 | ED.GENADUL_ITS ---
Discharge Plan Disposition Patient Disposition: Home Condition: Improving Discharge Details Chief Complaint: Dizzy/Sync Clinical Impression: Vertigo Primary Care Provider: Rocky Porter ED Provider: Guillermo Hatch Home Meds and New Rx's Prescriptions: No Action levothyroxine 75 mcg capsule 75 mcg PO DAILY sulfasalazine 500 mg tablet 1,500 mg PO BID insulin lispro [Humalog U-100 Insulin] 100 unit/mL solution 10 - 15 unit SC TID diclofenac sodium [Voltaren Arthritis Pain] 1 % gel 2 g topical .COMPLEX PRN Rx Instructions: 2 grams topical as needed; apply to single elbow, wrist or hand; for hand includes palm/fingers/back of hand mycophenolate mofetil 500 mg tablet 1,000 mg PO BID Qty: 360 3RF pyridostigmine bromide [Mestinon] 60 mg tablet 120 mg PO TID Qty: 720 3RF Rx Instructions: Take Mestinon 120mg at 6am, 2pm, and bedtime. chlorthalidone 25 mg tablet 12.5 mg PO Q OTHER DAY doxazosin 1 mg tablet 1 mg PO QHS insulin glargine [Lantus U-100 Insulin] 100 unit/mL solution 28 unit subcut BID Humulin N NPH U-100 Insulin 100 unit/mL suspension See Rx Instructions SC DIRECTED Rx Instructions: subcutaneously as directed; 5 units in AM, 15 units PM (DME) OneTouch Ultra Test 1 EACH strip 1 ea Miscellaneous 5X DAILY Qty: 100 Rx Instructions: 250.01 (DME) Easy Touch Insulin Safety Syr 1 EACH syringe 1 ea SQ DIRECTED Qty: 700 Rx Instructions: USE WITH INSULIN 7 X DAILY aspirin [Aspir-81] 81 mg tablet,delayed release (DR/EC) 81 mg PO DAILY lisinopril 40 mg tablet 40 mg PO DAILY Qty: 90 3RF rosuvastatin [Crestor] 10 mg tablet 10 mg PO DAILY Qty: 90 3RF amlodipine 10 mg tablet 10 mg PO DAILY Qty: 90 3RF spironolactone 25 mg tablet 25 mg PO DAILY Qty: 90 3RF meclizine 25 mg tablet 25 mg PO TID Qty: 30 0RF Discharge Instructions Instructions: Vertigo (ED) Additional Instructions: Please take medications as prescribed. Please return to the emergency department for any worsening symptoms. Medical Decision Making 72-year-old male history of diabetes hypertension hyperlipidemia, new onset vertiginous symptoms this morning around 3 AM, world spinning dizziness nausea and vomiting, initial improvement after meclizine Zofran and benzodiazepine here in department earlier last evening/this morning, labs and EKG largely unremarkable. CT head was unremarkable. However recurrence of symptoms while transferring from wheelchair to car. Patient is nonfocal however ataxic on examination, no horizontal or rotary nystagmus noted, patient has normal speech normal strength and normal cranial nerves, consider persistent recurrent peripheral vertigo most also consider central process such as posterior stroke. Lower suspicion for infectious etiology or ACS. Will place IV line administer fluids Benadryl benzodiazepine, would trial steroids however patient has an adverse reaction to prednisone, will obtain stat MRI of brain. Disposition pending reassessment of symptoms and imaging 10: 45 patient resting comfortably no acute distress vomiting and vertiginous symptoms have largely resolved. Was able to sit patient up without symptoms. MRI brain negative for stroke mass edema or inflammation. Will trial patient in seated position if successful will discharge home prescription for meclizine is already been sent to his pharmacy. HPI General Date/Time Provider Initiated Documentation: 05/06/22 08:59 . HPI Narrative: 72-year-old male history of diabetes hyperlipidemia hypertension, presents with vertiginous symptoms that awoke him this morning felt as if the bed was spinning/the room was spinning, nausea and vomiting before arrival, no chest pain or shortness of breath no history of prior vertigo. Patient was seen last night into this morning was treated medically with benzodiazepine antiemetics received a CT head and lab work which was unremarkable patient had improvement of symptoms, was ambulatory with assistance, upon transferring from wheelchair attempting to get into car patient's vertiginous symptoms returned persistent vomiting Related Data Home Medications Medication Instructions Recorded Confirmed blood sugar diagnostic (OneTouch #100 strips 11/16/12 05/06/22 Ultra Test strips) insulin syringe,safetyneedle 1 mL #700 SYRGS 11/16/12 05/06/22 29 gauge x 1/2 (Easy Touch Insulin Safety Syringe) levothyroxine 75 mcg capsule 75 mcg PO DAILY 11/09/17 05/06/22 sulfasalazine 500 mg tablet 1,500 mg PO BID 05/28/18 05/06/22 insulin lispro 100 unit/mL 10 - 15 unit subcut TID 03/14/19 05/06/22 subcutaneous solution (Humalog U-100 Insulin) insulin glargine 100 unit/mL 28 unit subcut BID 01/19/20 05/06/22 subcutaneous solution (Lantus U-100 Insulin) aspirin 81 mg tablet,delayed 81 mg PO DAILY 03/19/20 05/06/22 release (Aspir-) diclofenac sodium 1 % topical gel 2 g topical .COMPLEX PRN 12/12/20 05/06/22 (Voltaren Arthritis Pain) lisinopril 40 mg tablet 40 mg PO DAILY #90 tabs 05/10/21 05/06/22 insulin NPH isoph U-100 human 100 See Rx Instructions subcut 09/11/21 05/06/22 unit/mL subcutaneous suspension DIRECTED (Humulin N NPH U-100 Insulin (isophane susp)) mycophenolate mofetil 500 mg tablet 1,000 mg PO BID #360 tabs 09/11/21 05/06/22 pyridostigmine bromide 60 mg 120 mg PO TID weakness #720 tabs 09/11/21 05/06/22 tablet (Mestinon) rosuvastatin 10 mg tablet (Crestor) 10 mg PO DAILY #90 tabs 01/14/22 05/06/22 chlorthalidone 25 mg tablet 12.5 mg PO Q OTHER DAY 02/12/22 05/06/22 amlodipine 10 mg tablet 10 mg PO DAILY #90 tabs 03/19/22 05/06/22 doxazosin 1 mg tablet 1 mg PO QHS 03/24/22 05/06/22 spironolactone 25 mg tablet 25 mg PO DAILY #90 tabs 04/10/22 05/06/22 meclizine 25 mg tablet 25 mg PO TID #30 tabs 05/06/22 Previous Rx's Medication Instructions Recorded lisinopril 40 mg tablet 40 mg PO DAILY #90 tabs 05/10/21 mycophenolate mofetil 500 mg tablet 1,000 mg PO BID #360 tabs 09/11/21 pyridostigmine bromide 60 mg 120 mg PO TID weakness #720 tabs 09/11/21 tablet (Mestinon) rosuvastatin 10 mg tablet (Crestor) 10 mg PO DAILY #90 tabs 01/14/22 amlodipine 10 mg tablet 10 mg PO DAILY #90 tabs 01/18/23 spironolactone 25 mg tablet 25 mg PO DAILY #90 tabs 04/10/22 meclizine 25 mg tablet 25 mg PO TID #30 tabs 05/06/22 Allergies Allergy/AdvReac Type Severity Reaction Status Date / Time prednisone AdvReac Severe severe Verified 05/06/22 06:56 dizziness, lightheaded and moderate SOB General Stated Complaint: Dizzy/Sync GINNY: 3 Review of Systems Narrative: Review of Systems Constitutional: negative Eyes: negative ENT: negative Cardiovascular: negative Respiratory: negative Gastrointestinal: Nausea vomiting : negative Musculoskeletal: negative Skin: negative Neurologic: Dizziness Psych: negative PFSH All Active Problems (Updated 05/06/22 @ 11:23 by Guillermo Hatch MD) Episodic peripheral vertigo (Acute) Vertigo (Acute) Bradycardia (Acute) Impingement syndrome of right shoulder (Acute) Peripheral neuropathy (Acute) Type 1 diabetes (Acute) Followed and managed by endocrine-[facility] Arthritis of both hands (Acute) BPH associated with nocturia (Acute) Herpes zoster (Acute) Colon polyps (Acute) Mild nonproliferative diabetic retinopathy (Acute 03/09/10) Urothelial carcinoma of bladder (Acute ~03/08/18) 03/08/18 DR. MADRID-kb Abnormal CPK (Acute 11/16/13) Type 1 diabetes mellitus without complication (Acute 08/07/17) onset 1990. Retinopathy, neuropathy, nephropathy, Myasthenia gravis (Chronic 11/02/12) Followed by [facility]y at [facility], and [facility], treated with Mestinon, CellCept, and as needed IVIG infusion Hyperlipidemia (Acute) Gastroesophageal reflux disease with esophagitis (Acute) Essential hypertension (Acute) Crohn's disease (Acute) Followed-managed by [facility] GI, colonoscopy every 2 years Medical History Acute appendicitis Crohn's disease Diabetes GERD (gastroesophageal reflux disease) HTN (hypertension) Hyperlipemia Surgical History History of cataract surgery Incision & Drainage, Abscess or Hematoma (07/29/16) perianal abscess S/P cystoscopy S/P laparoscopic appendectomy (~07/22/20) S/P skin cancer resection face 2017 Status post inguinal hernia repair left and right Family History Father AAA (abdominal aortic aneurysm) Social History Smoking/Tobacco Use Status: Current every day Tobacco Type: smokeless tobacco Tobacco: How many years used: 30 Smokeless tobacco user: snuff Second Hand Exposure: Yes Smoking risk assessment performed?: Yes Alcohol Intake: never Drug use: Never Substance use type: does not use Household members: spouse Communication Needs: Hard of Hearing Do you need help understanding health information?: Rarely 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; [employer] Pets and animals: Yes Pets and animals: dog(s) Sexually active: No Do you think of yourself as: straight/heterosexual Current gender identity: male What is your relationship status?: Panel score (0-1 are the most socially isolated patients): 1 Do you feel safe at home: Yes Do you feel safe in your relationship?: Yes Exam Narrative Exam Narrative: Physical Examination General: alert, awake, cooperative, uncomfortable appearing HEENT: normocephalic, atraumatic; PERRL, EOM intact, conjunctiva normal; no na clementina discharge; moist mucous membranes, oral and pharyngeal mucosa normal, tolerating secretions Neck: supple, trachea midline; full ROM Chest: normal to inspection Respiratory: normal respiratory effort, speaking in full sentences, clear to auscultation, no wheezing, rales or rhonchi Cardiac: regular rate, regular rhythm, S1S2 intact, no murmurs rubs or gallops GI: abdomen soft, non-tender, non-distended; no palpable mass or hepatosplenomegaly Skin: no lesions, rashes or trauma appreciated Neuro: AAOx3, normal speech, moving all extremities, cranial nerves II through XII intact, no horizontal or rotary nystagmus noted, patient is ataxic and requiring help with transferring from wheelchair to bed Extremities: No signs of trauma Psych: Appropriate mood and affect Course Vital Signs Vital signs: Vital Signs Temperature 36.5 C 05/06/22 09:08 Pulse 100 H 05/06/22 09:08 Respiratory Rate 20 05/06/22 09:08 Blood Pressure 178/81 H 05/06/22 09:08 Pulse Oximetry 99 05/06/22 09:08 Temperature 36.5 C 05/06/22 09:08 Temperature Source Temporal Artery Scan 05/06/22 09:08 Pulse 100 H 05/06/22 09:08 Respiratory Rate 20 05/06/22 09:14 Respiratory Effort Normal, Non-Labored 05/06/22 09:14 Respiratory Depth Normal 05/06/22 09:14 Respiratory Pattern Normal 05/06/22 09:14 Blood Pressure 178/81 H 05/06/22 09:08 Blood Pressure Position Sitting 05/06/22 09:08 Pulse Oximetry 99 05/06/22 09:08 Oxygen Delivery Method Room Air 05/06/22 09:08 Oxygen Flow Rate 0 05/06/22 09:08 Pain Level 0 05/06/22 09:08
--- NOTE | 2022-05-06 10:05 | DI.MRI_ITS ---
Exam(s) MR BRAIN WO EXAM: MR BRAIN WO CLINICAL HISTORY: uncontrolled vertigo, headache TECHNIQUE: Multiplanar multisequence MRI of the brain was performed. COMPARISON: CT CT HEAD WO from 05/06/2022 FINDINGS: Images are degraded by motion artifact. CEREBRAL PARENCHYMA: There is no evidence of intracranial hemorrhage, mass effect, or shift of midline structures. There are no extra-axial fluid collections. Ventricles are not enlarged or shifted. There is no significant focal signal abnormality in the cerebellar hemispheres nor within the juanita, m idbrain, and thalami. There is no abnormal signal abnormality in the periventricular white matter. There is no significant focal signal abnormality evident on diffusion imaging to suggest acute ischem ic event. PITUITARY GLAND: No obvious mass nor parasellar abnormality. No obvious abnormality in the cavernous sinuses. FLOW VOIDS: The expected flow void are noted. No evidence of obvious aneurysm nor obvious vascular ma lformation. PARANASAL SINUSES: The visualized paranasal sinuses appear unremarkable. No obvious finding . Also n o abnormal signal in the region the mastoid air cells. ORBITS: No obvious findings. IMPRESSION: Images are somewhat degraded by motion artifact but there are no obvious acute intracranial findings on this noninfused MRI scan of the brain. Called by myself to ER physician. DATA REPOSITORY:
[2022-05-06 11:40] VITALS: BP 151/70; PULSE 90; RESP 14; O2SAT 99
== END 2022-05-06 11:34 | disposition home or self-care (01) ==
PROVIDERS: Emergency Provider Emergency Medicine; PCP Family Medicine
DX: R42 Dizziness and giddiness (principal); E11.9 Type 2 diabetes mellitus without complications; I10 Essential (primary) hypertension; R11.2 Nausea with vomiting, unspecified
CPT/HCPCS: 36415; 96361; 96374; 99284; 70551; J1200; J2060

== ENCOUNTER 2022-05-27 07:52 | Outpatient (CLI) | payer MEDICARE, BC, SELFPAY ==
--- NOTE | 2022-05-27 07:45 | RT.EKG_ITS ---
APPROVED REPORT Exam: Resting ECG Reason for Exam: palpitations Patient Location: O HR:73 bpm ECG Measurements Heart Rate 73 AXIS NH 163 P 69 QRSd 103 QRS 47 QT 387 T 40 QTc 427 Conclusion Sinus rhythm...normal P axis, V-rate 50- 99 Ventricular bigeminy...bigeminy string>4 w/ V complexes Otherwise normal ECG
== END 2022-05-27 07:53 | disposition home or self-care (01) ==
LOC: DI.CARD 07:53
PROVIDERS: PCP Family Medicine; Visit Provider Internal Medicine Cardiovascular Disease
DX: R00.1 Bradycardia, unspecified (principal); R00.2 Palpitations
CPT/HCPCS: 93010

== ENCOUNTER → 2022-05-27 13:55 | Outpatient (BNVA) | payer MEDICARE, BC, SELFPAY | PROVIDERS: PCP Family Medicine; Referring Provider Family Medicine; Visit Provider Internal Medicine Cardiovascular Disease | DX: I49.3 Ventricular premature depolarization (principal); I10 Essential (primary) hypertension; G70.00 Myasthenia gravis without (acute) exacerbation; E10.9 Type 1 diabetes mellitus without complications | CPT/HCPCS: 93005; 99203; 99213 ==

== ENCOUNTER 2022-06-06 01:17 | Outpatient (RCR) | payer MEDICARE, BC, SELFPAY ==
[2022-04-30 00:15] VITALS: BP 167/71; PULSE 36; RESP 18; TEMP 36.5
[2022-06-04] VITALS (7 sets, daily range): BP systolic 138–149; BP diastolic 58–76; PULSE 47–69; RESP 16–17; TEMP 36.6–37.3; O2SAT 98–100
[2022-06-04] MEDS: IMMUNE GLOBULIN 5 GM/50 ML BTL IVPB (07:50)
[2022-06-04] MEDS: IMMUNE GLOBULIN 20 GM/200 ML BTL IVPB (08:21)
[2022-06-04] MEDS: IMMUNE GLOBULIN 40 GM/400 ML BTL IVPB (09:18)
[2022-06-05] MEDS: IMMUNE GLOBULIN 5 GM/50 ML BTL IVPB (07:39)
[2022-06-05 07:40] VITALS: BP 163/71; PULSE 50; RESP 18; TEMP 36.6; O2SAT 95
[2022-06-05] MEDS: Normal Saline Flush 10 ML SYR IVP (07:40)
[2022-06-05 07:51] LABS: CREATININE 1.2 mg/dL (0.70-1.30); Estimated GFR 63.46 (mL/min/1.73m2)
[2022-06-05 07:58] VITALS: BP 126/63; PULSE 61; RESP 18; TEMP 36.5; O2SAT 98
[2022-06-05 08:15] VITALS: BP 152/63; PULSE 45; RESP 18; TEMP 36.8; O2SAT 98
[2022-06-05] MEDS: IMMUNE GLOBULIN 20 GM/200 ML BTL IVPB (08:18)
[2022-06-05 08:40] VITALS: BP 151/63; PULSE 65; RESP 18; TEMP 36.1; O2SAT 97
[2022-06-05 09:10] VITALS: BP 146/68; PULSE 44; RESP 18; TEMP 36.1; O2SAT 98
[2022-06-05] MEDS: IMMUNE GLOBULIN 40 GM/400 ML BTL IVPB (09:15)
[2022-06-05 09:40] VITALS: BP 170/71; PULSE 44; RESP 18; TEMP 36.6; O2SAT 99
[2022-06-06] MEDS: Normal Saline Flush 10 ML SYR IVP (07:38)
[2022-06-06] MEDS: IMMUNE GLOBULIN 5 GM/50 ML BTL IVPB (07:39)
[2022-06-06 07:40] VITALS: BP 177/77; PULSE 69; RESP 18; TEMP 36.4; O2SAT 99
[2022-06-06 08:01] VITALS: BP 145/60; PULSE 66; RESP 18; TEMP 36.1; O2SAT 98
[2022-06-06 08:10] VITALS: BP 157/82; PULSE 63; RESP 18; TEMP 36.8; O2SAT 98
[2022-06-06] MEDS: IMMUNE GLOBULIN 20 GM/200 ML BTL IVPB (08:22)
[2022-06-06 08:45] VITALS: BP 162/74; PULSE 49; RESP 17; TEMP 36; O2SAT 99
[2022-06-06 09:15] VITALS: BP 158/73; PULSE 44; RESP 18; TEMP 36.4; O2SAT 97
[2022-06-06] MEDS: IMMUNE GLOBULIN 40 GM/400 ML BTL IVPB (09:18)
[2022-06-06 09:44] VITALS: BP 150/71; PULSE 63; RESP 17; TEMP 36.4; O2SAT 98
== END 2022-06-29 23:59 | disposition home or self-care (01) ==
LOC: INF 01:17
PROVIDERS: PCP Family Medicine; Visit Provider Psychiatry & Neurology Neurology
DX: Z45.2 Encounter for adjustment and management of vascular access device (principal); G70.01 Myasthenia gravis with (acute) exacerbation
CPT/HCPCS: 36591; 96365; 96366; 82565; J1459

== ENCOUNTER 2022-07-18 01:33 | Outpatient (RCR) | payer MEDICARE, BC, SELFPAY ==
[2022-06-30 00:01] VITALS: BP 150/71; PULSE 63; RESP 17; TEMP 36.4
[2022-07-16 07:49] VITALS: BP 131/54; PULSE 58; RESP 17; TEMP 37.2; O2SAT 100
[2022-07-16] MEDS: IMMUNE GLOBULIN 5 GM/50 ML BTL IVPB (07:54)
[2022-07-16 08:15] VITALS: BP 116/63; PULSE 59; RESP 18; TEMP 37.1; O2SAT 98
[2022-07-16 08:30] VITALS: BP 123/55; PULSE 57; RESP 17; TEMP 37.3; O2SAT 100
[2022-07-16] MEDS: IMMUNE GLOBULIN 20 GM/200 ML BTL IVPB (08:33)
[2022-07-16 09:00] VITALS: BP 143/67; PULSE 58; RESP 18; TEMP 37; O2SAT 99
[2022-07-16 09:30] VITALS: BP 137/71; PULSE 57; TEMP 37.1; O2SAT 99
[2022-07-16] MEDS: IMMUNE GLOBULIN 40 GM/400 ML BTL IVPB (09:30)
[2022-07-16 10:05] VITALS: BP 154/74; PULSE 57; RESP 17; TEMP 37.4; O2SAT 99
[2022-07-17 07:49] VITALS: BP 149/67; PULSE 65; RESP 18; TEMP 36.4; O2SAT 99
[2022-07-17] MEDS: IMMUNE GLOBULIN 5 GM/50 ML BTL IVPB (08:00)
[2022-07-17 08:03] LABS: CREATININE 1.3 mg/dL (0.70-1.30); Estimated GFR 57.65 (mL/min/1.73m2)
[2022-07-17 08:15] VITALS: BP 135/52; PULSE 58; RESP 17; TEMP 36.9; O2SAT 99
[2022-07-17 08:30] VITALS: BP 133/55; PULSE 58; RESP 17; TEMP 37.1; O2SAT 98
[2022-07-17] MEDS: IMMUNE GLOBULIN 20 GM/200 ML BTL IVPB (08:32)
[2022-07-17] MEDS: Normal Saline Flush 10 ML SYR IVP (08:33)
[2022-07-17 09:00] VITALS: BP 152/68; PULSE 56; RESP 17; TEMP 37.1; O2SAT 98
[2022-07-17] MEDS: IMMUNE GLOBULIN 40 GM/400 ML BTL IVPB (09:28)
[2022-07-17 09:30] VITALS: BP 156/65; PULSE 60; RESP 17; TEMP 37.3; O2SAT 98
[2022-07-17 10:40] VITALS: BP 156/65; PULSE 66; RESP 17; TEMP 37.1; O2SAT 99
[2022-07-18] VITALS (7 sets, daily range): BP systolic 133–186; BP diastolic 62–82; PULSE 55–61; RESP 16–17; TEMP 36.5–36.9; O2SAT 98–99
[2022-07-18] MEDS: IMMUNE GLOBULIN 5 GM/50 ML BTL IVPB (07:49)
[2022-07-18] MEDS: Normal Saline Flush 10 ML SYR IVP (07:49)
[2022-07-18] MEDS: IMMUNE GLOBULIN 20 GM/200 ML BTL IVPB (08:27)
[2022-07-18] MEDS: IMMUNE GLOBULIN 40 GM/400 ML BTL IVPB (09:25)
== END 2022-07-30 23:59 | disposition home or self-care (01) ==
LOC: INF 01:33
PROVIDERS: PCP Family Medicine; Visit Provider Psychiatry & Neurology Neurology
DX: G70.01 Myasthenia gravis with (acute) exacerbation (principal)
CPT/HCPCS: 36415; 96365; 96366; 82565; J1459

== ENCOUNTER → 2022-08-13 09:01 | Outpatient (BNVA) | payer MEDICARE, BC, SELFPAY | PROVIDERS: PCP Family Medicine; Visit Provider Psychiatry & Neurology Neurology | DX: G62.9 Polyneuropathy, unspecified (principal); E11.9 Type 2 diabetes mellitus without complications; R00.1 Bradycardia, unspecified; I95.1 Orthostatic hypotension; T46.4X5A Adverse effect of angiotensin-converting-enzyme inhibitors, initial encounter; I10 Essential (primary) hypertension; G70.00 Myasthenia gravis without (acute) exacerbation | CPT/HCPCS: 99214 ==

== ENCOUNTER 2022-08-29 00:40 | Outpatient (RCR) | payer MEDICARE, BC, SELFPAY ==
[2022-07-31 00:12] VITALS: BP 164/78; PULSE 58; RESP 17; TEMP 36.9
[2022-08-27 07:45] VITALS: PULSE 51; RESP 17; TEMP 35.9; O2SAT 98
[2022-08-27] MEDS: IMMUNE GLOBULIN 5 GM/50 ML BTL IVPB (07:50)
[2022-08-27] MEDS: Normal Saline Flush 10 ML SYR IVP (07:50)
[2022-08-27 08:05] VITALS: BP 130/55; PULSE 57; RESP 17; TEMP 35.7; O2SAT 97
[2022-08-27 08:20] VITALS: BP 135/60; PULSE 52; RESP 18; TEMP 36.1; O2SAT 96
[2022-08-27] MEDS: IMMUNE GLOBULIN 20 GM/200 ML BTL IVPB (08:26)
[2022-08-27 08:50] VITALS: BP 133/64; PULSE 54; RESP 18; TEMP 35.7; O2SAT 97
[2022-08-27] MEDS: IMMUNE GLOBULIN 40 GM/400 ML BTL IVPB (09:20)
[2022-08-27 09:21] VITALS: BP 159/65; PULSE 54; RESP 18; TEMP 36.5; O2SAT 98
[2022-08-27 09:51] VITALS: BP 147/69; PULSE 52; RESP 20; TEMP 36; O2SAT 98
[2022-08-28] MEDS: IMMUNE GLOBULIN 5 GM/50 ML BTL IVPB (07:50)
[2022-08-28] MEDS: Normal Saline Flush 10 ML SYR IVP (07:58)
[2022-08-28 07:59] VITALS: BP 157/61; PULSE 30; RESP 18; TEMP 36; O2SAT 100
[2022-08-28 08:05] VITALS: BP 132/57; PULSE 53; RESP 18; TEMP 36.2; O2SAT 98
[2022-08-28 08:21] LABS: CREATININE 1.2 mg/dL (0.70-1.30); Estimated GFR 63.46 (mL/min/1.73m2)
[2022-08-28 08:25] VITALS: BP 151/72; PULSE 54; RESP 18; TEMP 36.6; O2SAT 97
[2022-08-28] MEDS: IMMUNE GLOBULIN 20 GM/200 ML BTL IVPB (08:25)
[2022-08-28 08:55] VITALS: BP 156/72; PULSE 54; RESP 18; TEMP 36.5; O2SAT 98
[2022-08-28] MEDS: IMMUNE GLOBULIN 40 GM/400 ML BTL IVPB (09:24)
[2022-08-28 09:27] VITALS: BP 158/54; PULSE 57; RESP 18; TEMP 36.5; O2SAT 99
[2022-08-28 10:10] VITALS: BP 163/76; PULSE 56; RESP 18; TEMP 35.9; O2SAT 98
[2022-08-29] MEDS: Normal Saline Flush 10 ML SYR IVP (07:54)
[2022-08-29] MEDS: IMMUNE GLOBULIN 5 GM/50 ML BTL IVPB (07:54)
[2022-08-29 08:10] VITALS: BP 154/58; BP 164/60; PULSE 46; PULSE 58; RESP 18; RESP 187; TEMP 36.2; TEMP 36.5; O2SAT 96; O2SAT 97
[2022-08-29] MEDS: IMMUNE GLOBULIN 20 GM/200 ML BTL IVPB (08:19)
[2022-08-29 08:25] VITALS: BP 164/60; PULSE 40; RESP 18; TEMP 36; O2SAT 97
[2022-08-29 08:55] VITALS: BP 148/56; PULSE 58; RESP 18; TEMP 36; O2SAT 98
[2022-08-29] MEDS: IMMUNE GLOBULIN 40 GM/400 ML BTL IVPB (09:16)
[2022-08-29 09:25] VITALS: BP 158/62; PULSE 52; RESP 17; O2SAT 96
[2022-08-29 10:05] VITALS: BP 166/72; PULSE 59; RESP 18; TEMP 36; O2SAT 97
== END 2022-08-29 23:59 | disposition home or self-care (01) ==
LOC: INF 00:40
PROVIDERS: PCP Family Medicine; Visit Provider Psychiatry & Neurology Neurology
DX: G70.00 Myasthenia gravis without (acute) exacerbation (principal)
CPT/HCPCS: 36415; 96365; 96366; 82565; J1459

== ENCOUNTER 2022-09-26 01:04 | Outpatient (RCR) | payer MEDICARE, BC, SELFPAY ==
[2022-08-30 00:06] VITALS: BP 166/72; PULSE 59; RESP 18; TEMP 36
[2022-09-24 07:55] VITALS: BP 143/59; PULSE 67; RESP 17; TEMP 36.6; O2SAT 97
[2022-09-24] MEDS: IMMUNE GLOBULIN 5 GM/50 ML BTL IVPB (07:59)
[2022-09-24] MEDS: Normal Saline Flush 10 ML SYR IVP (07:59)
[2022-09-24 08:21] VITALS: BP 130/57; PULSE 53; TEMP 36.6; O2SAT 96
[2022-09-24 08:37] VITALS: BP 122/58; PULSE 57; TEMP 36.6; O2SAT 97
[2022-09-24] MEDS: IMMUNE GLOBULIN 20 GM/200 ML BTL IVPB (08:37)
[2022-09-24 09:09] VITALS: BP 146/71; PULSE 56; RESP 17; TEMP 36.5; O2SAT 98
[2022-09-24] MEDS: IMMUNE GLOBULIN 40 GM/400 ML BTL IVPB (09:30)
[2022-09-24 09:37] VITALS: BP 153/70; PULSE 58; RESP 17; TEMP 36.5; O2SAT 98
[2022-09-24 10:10] VITALS: BP 164/70; PULSE 56; RESP 17; TEMP 36.6; O2SAT 98
[2022-09-25] MEDS: IMMUNE GLOBULIN 5 GM/50 ML BTL IVPB (07:59)
[2022-09-25] MEDS: Normal Saline Flush 10 ML SYR IVP (07:59)
[2022-09-25 08:00] VITALS: BP 148/61; PULSE 54; RESP 17; TEMP 36.1; O2SAT 100
[2022-09-25 08:20] VITALS: BP 149/53; PULSE 54; RESP 17; TEMP 36.5; O2SAT 97
[2022-09-25 08:35] VITALS: BP 140/60; PULSE 58; RESP 17; TEMP 36.4; O2SAT 97
[2022-09-25] MEDS: IMMUNE GLOBULIN 20 GM/200 ML BTL IVPB (08:35)
[2022-09-25 08:38] LABS: CREATININE 1.2 mg/dL (0.70-1.30); Estimated GFR 63.46 (mL/min/1.73m2)
[2022-09-25 09:04] VITALS: BP 147/64; PULSE 55; RESP 17; TEMP 36; O2SAT 100
[2022-09-25 09:35] VITALS: BP 160/62; PULSE 54; RESP 17; TEMP 35.8; O2SAT 97
[2022-09-25] MEDS: IMMUNE GLOBULIN 40 GM/400 ML BTL IVPB (09:35)
[2022-09-25 10:01] VITALS: BP 164/66; PULSE 56; RESP 17; TEMP 36.7; O2SAT 97
[2022-09-26] MEDS: IMMUNE GLOBULIN 5 GM/50 ML BTL 0.94 GM IVPB (08:17)
[2022-09-26] MEDS: Normal Saline Flush 10 ML SYR IVP (08:18)
[2022-09-26 08:20] VITALS: BP 156/73; PULSE 54; RESP 17; TEMP 37.1; O2SAT 97
[2022-09-26 08:46] VITALS: BP 164/97; PULSE 61; TEMP 36.6; O2SAT 97
[2022-09-26] MEDS: IMMUNE GLOBULIN 20 GM/200 ML BTL IVPB (08:54)
[2022-09-26 09:01] VITALS: BP 153/71; PULSE 56; TEMP 36.6; O2SAT 97
[2022-09-26 09:30] VITALS: BP 170/69; PULSE 52; RESP 17; TEMP 36.8; O2SAT 98
[2022-09-26] MEDS: IMMUNE GLOBULIN 40 GM/400 ML BTL IVPB (09:49)
[2022-09-26 10:07] VITALS: BP 181/80; PULSE 59; RESP 17; TEMP 36.7; O2SAT 97
[2022-09-26 11:00] VITALS: BP 189/77; PULSE 58; RESP 18; TEMP 36.4; O2SAT 97
== END 2022-09-29 23:59 | disposition home or self-care (01) ==
LOC: INF 01:04
PROVIDERS: PCP Family Medicine; Visit Provider Psychiatry & Neurology Neurology
DX: G70.01 Myasthenia gravis with (acute) exacerbation (principal)
CPT/HCPCS: 36415; 96365; 96366; 82565; J1459

== ENCOUNTER 2022-10-24 00:51 | Outpatient (RCR) | payer MEDICARE, BC, SELFPAY ==
[2022-09-30 00:03] VITALS: BP 189/77; PULSE 58; RESP 18; TEMP 36.4
[2022-10-22] VITALS (7 sets, daily range): BP systolic 120–160; BP diastolic 50–64; PULSE 29–61; RESP 17–18; TEMP 35.1–36; O2SAT 96–98
[2022-10-22] MEDS: Normal Saline Flush 10 ML SYR IVP (07:55)
[2022-10-22] MEDS: IMMUNE GLOBULIN 5 GM/50 ML BTL IVPB (07:55)
[2022-10-22] MEDS: IMMUNE GLOBULIN 20 GM/200 ML BTL IVPB (08:29)
[2022-10-22] MEDS: IMMUNE GLOBULIN 40 GM/400 ML BTL IVPB (09:30)
[2022-10-23 07:50] VITALS: BP 174/66; PULSE 41; RESP 18; TEMP 35.7; O2SAT 98
[2022-10-23] MEDS: IMMUNE GLOBULIN 5 GM/50 ML BTL IVPB (07:59)
[2022-10-23] MEDS: Normal Saline Flush 10 ML SYR IVP (07:59)
[2022-10-23 08:15] VITALS: BP 137/57; PULSE 44; RESP 17; TEMP 35.8; O2SAT 97
[2022-10-23 08:30] VITALS: BP 157/66; PULSE 53; RESP 18; TEMP 35.4; O2SAT 97
[2022-10-23] MEDS: IMMUNE GLOBULIN 20 GM/200 ML BTL IVPB (08:35)
[2022-10-23 08:40] LABS: CREATININE 1.2 mg/dL (0.70-1.30); Estimated GFR 63.46 (mL/min/1.73m2)
[2022-10-23 09:00] VITALS: BP 140/69; PULSE 55; RESP 17; TEMP 35.5; O2SAT 99
[2022-10-23] MEDS: IMMUNE GLOBULIN 40 GM/400 ML BTL IVPB (09:25)
[2022-10-23 09:30] VITALS: BP 165/65; PULSE 45; RESP 17; TEMP 35.1; O2SAT 98
[2022-10-23 10:06] VITALS: BP 160/80; PULSE 60; RESP 17; TEMP 35.2; O2SAT 96
[2022-10-24 07:53] VITALS: BP 151/58; PULSE 52; RESP 17; TEMP 36.1; O2SAT 96
[2022-10-24] MEDS: IMMUNE GLOBULIN 5 GM/50 ML BTL IVPB (07:57)
[2022-10-24 08:20] VITALS: BP 143/64; PULSE 55; RESP 17; TEMP 36.9; O2SAT 97
[2022-10-24] MEDS: Normal Saline Flush 10 ML SYR IVP (08:32)
[2022-10-24] MEDS: IMMUNE GLOBULIN 20 GM/200 ML BTL IVPB (08:32)
[2022-10-24 08:35] VITALS: BP 160/73; PULSE 54; TEMP 37; O2SAT 96
[2022-10-24 09:05] VITALS: BP 169/72; PULSE 54; TEMP 36.6; O2SAT 98
[2022-10-24] MEDS: IMMUNE GLOBULIN 40 GM/400 ML BTL IVPB (09:32)
[2022-10-24 09:35] VITALS: BP 162/68; PULSE 62; RESP 17; TEMP 37.1; O2SAT 98
[2022-10-24 10:05] VITALS: BP 170/78; PULSE 57; RESP 17; TEMP 37.1; O2SAT 97
== END 2022-10-30 23:59 | disposition home or self-care (01) ==
LOC: INF 00:51
PROVIDERS: PCP Family Medicine; Visit Provider Psychiatry & Neurology Neurology
DX: G70.01 Myasthenia gravis with (acute) exacerbation (principal)
CPT/HCPCS: 36415; 96365; 96366; 82565; J1459

== ENCOUNTER → 2022-11-12 09:17 | Outpatient (BNVA) | payer MEDICARE, BC, SELFPAY | PROVIDERS: PCP Family Medicine; Visit Provider Psychiatry & Neurology Neurology | DX: G62.9 Polyneuropathy, unspecified (principal); R00.1 Bradycardia, unspecified; G70.00 Myasthenia gravis without (acute) exacerbation | CPT/HCPCS: 99214 ==

== ENCOUNTER 2022-11-21 01:37 | Outpatient (RCR) | payer MEDICARE, BC, SELFPAY ==
[2022-10-31 00:03] VITALS: BP 170/78; PULSE 57; RESP 17; TEMP 37.1
[2022-11-19] VITALS (7 sets, daily range): BP systolic 141–181; BP diastolic 60–88; PULSE 48–62; RESP 17; TEMP 35.9–37; O2SAT 96–97
[2022-11-19] MEDS: IMMUNE GLOBULIN 5 GM/50 ML BTL IVPB (07:54)
[2022-11-19] MEDS: IMMUNE GLOBULIN 20 GM/200 ML BTL IVPB (08:26)
[2022-11-19] MEDS: IMMUNE GLOBULIN 40 GM/400 ML BTL IVPB (09:23)
[2022-11-20] VITALS (7 sets, daily range): BP systolic 144–183; BP diastolic 60–78; PULSE 53–65; RESP 17; TEMP 36.5–37.1; O2SAT 97–100
[2022-11-20] MEDS: Normal Saline Flush 10 ML SYR IVP (08:00)
[2022-11-20] MEDS: IMMUNE GLOBULIN 5 GM/50 ML BTL IVPB (08:03)
[2022-11-20] MEDS: IMMUNE GLOBULIN 20 GM/200 ML BTL IVPB (08:42)
[2022-11-20 08:57] LABS: CREATININE 1.3 mg/dL (0.70-1.30); Estimated GFR 57.65 (mL/min/1.73m2)
[2022-11-20] MEDS: IMMUNE GLOBULIN 40 GM/400 ML BTL IVPB (09:39)
[2022-11-21 07:50] VITALS: BP 181/86; PULSE 65; RESP 16; TEMP 36.6; O2SAT 99
[2022-11-21] MEDS: IMMUNE GLOBULIN 5 GM/50 ML BTL IVPB (08:01)
[2022-11-21] MEDS: Normal Saline Flush 10 ML SYR IVP (08:02)
[2022-11-21 08:15] VITALS: BP 147/60; PULSE 57; RESP 17; TEMP 36.4; O2SAT 98
[2022-11-21] MEDS: IMMUNE GLOBULIN 20 GM/200 ML BTL IVPB (08:28)
[2022-11-21 08:30] VITALS: BP 153/70; PULSE 59; RESP 17; TEMP 36.3; O2SAT 98
[2022-11-21 09:00] VITALS: BP 169/72; PULSE 55; RESP 17; TEMP 36.4; O2SAT 98
[2022-11-21] MEDS: IMMUNE GLOBULIN 40 GM/400 ML BTL IVPB (09:24)
[2022-11-21 09:30] VITALS: BP 173/76; PULSE 52; RESP 18; TEMP 36.3; O2SAT 98
[2022-11-21 10:00] VITALS: BP 175/74; PULSE 57; RESP 16; TEMP 36.6; O2SAT 99
== END 2022-11-29 23:59 | disposition home or self-care (01) ==
LOC: INF 01:37
PROVIDERS: PCP Family Medicine; Visit Provider Psychiatry & Neurology Neurology
DX: G70.01 Myasthenia gravis with (acute) exacerbation (principal)
CPT/HCPCS: 96365; 96366; 82565; J1459

== ENCOUNTER → 2022-12-15 12:15 | Outpatient (BNVA) | payer MEDICARE, BC, SELFPAY | PROVIDERS: PCP Family Medicine; Referring Provider Family Medicine; Visit Provider Psychiatry & Neurology Neurology | DX: G62.9 Polyneuropathy, unspecified (principal); R00.1 Bradycardia, unspecified; I95.1 Orthostatic hypotension; T46.4X5A Adverse effect of angiotensin-converting-enzyme inhibitors, initial encounter; I10 Essential (primary) hypertension; E10.9 Type 1 diabetes mellitus without complications; G70.00 Myasthenia gravis without (acute) exacerbation | CPT/HCPCS: 99215 ==

== ENCOUNTER 2022-12-19 01:42 | Outpatient (RCR) | payer MEDICARE, BC, SELFPAY ==
[2022-11-30 00:12] VITALS: BP 175/74; PULSE 57; RESP 16; TEMP 36.6
[2022-12-17] MEDS: IMMUNE GLOBULIN 5 GM/50 ML BTL IVPB (07:49)
[2022-12-17] MEDS: Normal Saline Flush 10 ML SYR IVP (07:49)
[2022-12-17 07:55] VITALS: BP 129/67; PULSE 70; RESP 17; TEMP 36.9; O2SAT 98
[2022-12-17 08:10] VITALS: BP 146/66; PULSE 62; RESP 17; TEMP 37; O2SAT 96
[2022-12-17] MEDS: IMMUNE GLOBULIN 20 GM/200 ML BTL IVPB (08:23)
[2022-12-17 08:25] VITALS: BP 145/66; PULSE 64; RESP 16; TEMP 36.8; O2SAT 98
[2022-12-17 08:55] VITALS: BP 166/68; PULSE 63; RESP 17; TEMP 36.3; O2SAT 97
[2022-12-17] MEDS: IMMUNE GLOBULIN 40 GM/400 ML BTL IVPB (09:21)
[2022-12-17 09:25] VITALS: BP 172/72; PULSE 65; RESP 17; TEMP 36.4; O2SAT 96
[2022-12-17 09:55] VITALS: BP 171/77; PULSE 64; RESP 17; TEMP 36.8; O2SAT 97
[2022-12-18 07:50] VITALS: BP 111/57; PULSE 72; RESP 17; TEMP 37.1; O2SAT 96
[2022-12-18] MEDS: IMMUNE GLOBULIN 5 GM/50 ML BTL IVPB (08:00)
[2022-12-18] MEDS: Normal Saline Flush 10 ML SYR IVP (08:06)
[2022-12-18 08:15] VITALS: BP 122/62; PULSE 63; RESP 17; TEMP 37.2; O2SAT 96
[2022-12-18 08:30] VITALS: BP 138/67; PULSE 64; RESP 16; TEMP 37.1; O2SAT 95
[2022-12-18] MEDS: IMMUNE GLOBULIN 20 GM/200 ML BTL IVPB (08:32)
[2022-12-18 09:00] VITALS: BP 134/63; PULSE 61; RESP 17; TEMP 37.4; O2SAT 97
[2022-12-18] MEDS: IMMUNE GLOBULIN 40 GM/400 ML BTL IVPB (09:23)
[2022-12-18 09:30] VITALS: BP 164/76; PULSE 61; RESP 17; TEMP 37.1; O2SAT 97
[2022-12-18 10:00] LABS: CREATININE 1.4 mg/dL (0.70-1.30); Estimated GFR 52.74 (mL/min/1.73m2)
[2022-12-19] MEDS: Normal Saline Flush 10 ML SYR IVP (07:52)
[2022-12-19] MEDS: IMMUNE GLOBULIN 5 GM/50 ML BTL IVPB (07:52)
[2022-12-19 08:00] VITALS: BP 141/56; PULSE 59; RESP 17; TEMP 36.4; O2SAT 98
[2022-12-19 08:15] VITALS: BP 145/71; PULSE 63; RESP 17; TEMP 36.3; O2SAT 95
[2022-12-19 08:30] VITALS: BP 168/75; PULSE 63; RESP 17; TEMP 36.3; O2SAT 97
[2022-12-19] MEDS: IMMUNE GLOBULIN 20 GM/200 ML BTL IVPB (08:31)
[2022-12-19 09:00] VITALS: BP 162/72; PULSE 60; RESP 16; TEMP 36.6; O2SAT 96
[2022-12-19] MEDS: IMMUNE GLOBULIN 40 GM/400 ML BTL IVPB (09:24)
[2022-12-19 09:30] VITALS: BP 163/75; PULSE 64; RESP 16; TEMP 37; O2SAT 97
[2022-12-19 10:00] VITALS: BP 165/82; PULSE 66; RESP 17; TEMP 37.2; O2SAT 97
== END 2022-12-30 23:59 | disposition home or self-care (01) ==
LOC: INF 01:42
PROVIDERS: PCP Family Medicine; Visit Provider Psychiatry & Neurology Neurology
DX: G70.00 Myasthenia gravis without (acute) exacerbation (principal)
CPT/HCPCS: 36415; 96365; 96366; 82565; J1459

== ENCOUNTER 2023-01-16 01:46 | Outpatient (RCR) | payer MEDICARE, BC, SELFPAY ==
[2022-12-31 00:07] VITALS: BP 175/74; PULSE 57; RESP 16; TEMP 36.6
[2023-01-14] VITALS (7 sets, daily range): BP systolic 148–185; BP diastolic 65–90; PULSE 52–66; RESP 17; TEMP 36.5–37.2; O2SAT 98–99
[2023-01-14] MEDS: Normal Saline Flush 10 ML SYR IVP (07:53)
[2023-01-14] MEDS: IMMUNE GLOBULIN 5 GM/50 ML BTL IVPB (07:53)
[2023-01-14] MEDS: IMMUNE GLOBULIN 20 GM/200 ML BTL IVPB (08:17)
[2023-01-14] MEDS: IMMUNE GLOBULIN 40 GM/400 ML BTL IVPB (09:20)
[2023-01-15] VITALS (7 sets, daily range): BP systolic 135–200; BP diastolic 50–80; PULSE 51–61; RESP 17; TEMP 35.9–36.5; O2SAT 98–100
[2023-01-15] MEDS: IMMUNE GLOBULIN 5 GM/50 ML BTL IVPB (08:01)
[2023-01-15] MEDS: Normal Saline Flush 10 ML SYR IVP (08:07)
[2023-01-15 08:28] LABS: CREATININE 1.3 mg/dL (0.70-1.30); Estimated GFR 57.65 (mL/min/1.73m2)
[2023-01-15] MEDS: IMMUNE GLOBULIN 20 GM/200 ML BTL IVPB (08:43)
[2023-01-15] MEDS: IMMUNE GLOBULIN 40 GM/400 ML BTL IVPB (09:38)
[2023-01-16 08:03] VITALS: BP 168/77; PULSE 63; RESP 16; TEMP 34.4; O2SAT 99
[2023-01-16] MEDS: IMMUNE GLOBULIN 5 GM/50 ML BTL IVPB (08:29)
[2023-01-16] MEDS: Normal Saline Flush 10 ML SYR IVP (08:29)
[2023-01-16 08:40] VITALS: BP 143/69; PULSE 55; RESP 18; TEMP 34.6; O2SAT 98
[2023-01-16] MEDS: IMMUNE GLOBULIN 20 GM/200 ML BTL IVPB (09:04)
[2023-01-16 09:05] VITALS: BP 154/78; PULSE 58; RESP 18; TEMP 34.5; O2SAT 98
[2023-01-16 09:45] VITALS: BP 161/78; PULSE 56; RESP 20; TEMP 35.3; O2SAT 98
[2023-01-16] MEDS: IMMUNE GLOBULIN 40 GM/400 ML BTL IVPB (09:58)
[2023-01-16 10:15] VITALS: BP 179/69; PULSE 57; RESP 18; TEMP 34.5; O2SAT 99
[2023-01-16 10:50] VITALS: BP 180/84; PULSE 52; RESP 16; TEMP 36.6; O2SAT 99
== END 2023-01-29 23:59 | disposition home or self-care (01) ==
LOC: INF 01:46
PROVIDERS: PCP Family Medicine; Visit Provider Psychiatry & Neurology Neurology
DX: G70.01 Myasthenia gravis with (acute) exacerbation (principal)
CPT/HCPCS: 96365; 96366; 82565; J1459

== ENCOUNTER 2023-02-18 03:44 | Outpatient (RCR) | payer MEDICARE, BC, SELFPAY ==
[2023-01-30 00:19] VITALS: BP 175/74; PULSE 57; RESP 16; TEMP 36.6
[2023-02-16] VITALS (7 sets, daily range): BP systolic 92–165; BP diastolic 62–70; PULSE 60–66; RESP 16–17; TEMP 36–36.7; O2SAT 93–97
[2023-02-16] MEDS: IMMUNE GLOBULIN 5 GM/50 ML BTL IVPB (08:00)
[2023-02-16] MEDS: Normal Saline Flush 10 ML SYR IVP (08:00)
[2023-02-16] MEDS: IMMUNE GLOBULIN 20 GM/200 ML BTL IVPB (08:37)
[2023-02-16] MEDS: IMMUNE GLOBULIN 40 GM/400 ML BTL IVPB (09:26)
[2023-02-17] VITALS (7 sets, daily range): BP systolic 149–184; BP diastolic 66–75; PULSE 55–70; RESP 17; TEMP 36–36.6; O2SAT 95–99
[2023-02-17] MEDS: IMMUNE GLOBULIN 5 GM/50 ML BTL IVPB (08:10)
[2023-02-17] MEDS: Normal Saline Flush 10 ML SYR IVP (08:14)
[2023-02-17] MEDS: IMMUNE GLOBULIN 20 GM/200 ML BTL IVPB (08:41)
[2023-02-17 09:30] LABS: CREATININE 1.3 mg/dL (0.70-1.30); Estimated GFR 57.29 (mL/min/1.73m2)
[2023-02-17] MEDS: IMMUNE GLOBULIN 40 GM/400 ML BTL IVPB (09:37)
[2023-02-18] MEDS: IMMUNE GLOBULIN 5 GM/50 ML BTL IVPB (07:57)
[2023-02-18 08:02] VITALS: BP 152/79; PULSE 66; RESP 17; TEMP 36.7; O2SAT 98
[2023-02-18 08:15] VITALS: BP 192/87; PULSE 76; RESP 17; TEMP 36.8; O2SAT 98
[2023-02-18 08:30] VITALS: BP 167/67; PULSE 60; RESP 18; TEMP 36.6; O2SAT 97
[2023-02-18] MEDS: IMMUNE GLOBULIN 20 GM/200 ML BTL IVPB (08:36)
[2023-02-18 09:00] VITALS: BP 171/75; PULSE 58; RESP 17; TEMP 36.7; O2SAT 97
[2023-02-18] MEDS: IMMUNE GLOBULIN 40 GM/400 ML BTL IVPB (09:27)
[2023-02-18 09:32] VITALS: BP 172/79; PULSE 63; RESP 17; TEMP 36.7; O2SAT 97
[2023-02-18 10:07] VITALS: BP 174/72; PULSE 55; RESP 17; TEMP 36.7; O2SAT 98
[2023-02-18] MEDS: Normal Saline Flush 10 ML SYR IVP (10:37)
== END 2023-03-01 23:59 | disposition home or self-care (01) ==
LOC: INF 03:44
PROVIDERS: PCP Family Medicine; Visit Provider Psychiatry & Neurology Neurology
DX: G70.00 Myasthenia gravis without (acute) exacerbation (principal)
CPT/HCPCS: 36415; 96365; 96366; 82565; J1459

== ENCOUNTER 2023-03-11 02:38 | Outpatient (RCR) | payer MEDICARE, BC, SELFPAY ==
[2023-03-02 00:07] VITALS: BP 175/74; PULSE 57; RESP 16; TEMP 36.6
[2023-03-09 08:10] VITALS: BP 156/71; PULSE 62; RESP 17; TEMP 36.7; O2SAT 99
[2023-03-09] MEDS: Normal Saline Flush 10 ML SYR IVP (08:13)
[2023-03-09] MEDS: IMMUNE GLOBULIN 5 GM/50 ML BTL IVPB (08:13)
[2023-03-09 08:30] VITALS: BP 137/64; PULSE 59; RESP 16; TEMP 36.7; O2SAT 98
[2023-03-09] MEDS: IMMUNE GLOBULIN 20 GM/200 ML BTL IVPB (08:39)
[2023-03-09 08:45] VITALS: BP 136/69; PULSE 55; RESP 16; TEMP 36.7; O2SAT 100
[2023-03-09 09:15] VITALS: BP 145/68; PULSE 58; RESP 16; TEMP 36.1; O2SAT 98
[2023-03-09] MEDS: IMMUNE GLOBULIN 40 GM/400 ML BTL IVPB (09:35)
[2023-03-09 09:45] VITALS: BP 163/69; PULSE 57; RESP 16; TEMP 36.3; O2SAT 99
[2023-03-09 10:45] VITALS: BP 205/85; PULSE 66; RESP 16; TEMP 36.5; O2SAT 99
[2023-03-10] VITALS (7 sets, daily range): BP systolic 156–189; BP diastolic 68–82; PULSE 55–62; RESP 18; TEMP 37–37.3; O2SAT 97–99
[2023-03-10] MEDS: IMMUNE GLOBULIN 5 GM/50 ML BTL IVPB (07:56)
[2023-03-10] MEDS: IMMUNE GLOBULIN 20 GM/200 ML BTL IVPB (08:33)
[2023-03-10] MEDS: Normal Saline Flush 10 ML SYR IVP (08:39)
[2023-03-10 08:58] LABS: CREATININE 1.3 mg/dL (0.70-1.30); Estimated GFR 57.29 (mL/min/1.73m2)
[2023-03-10] MEDS: IMMUNE GLOBULIN 40 GM/400 ML BTL IVPB (09:32)
[2023-03-11] VITALS (7 sets, daily range): BP systolic 175–202; BP diastolic 71–90; PULSE 60–77; RESP 18; TEMP 36–37; O2SAT 95–99
[2023-03-11] MEDS: IMMUNE GLOBULIN 5 GM/50 ML BTL IVPB (08:05)
[2023-03-11] MEDS: IMMUNE GLOBULIN 20 GM/200 ML BTL IVPB (08:50)
[2023-03-11] MEDS: Normal Saline Flush 10 ML SYR IVP (08:50)
[2023-03-11] MEDS: IMMUNE GLOBULIN 40 GM/400 ML BTL IVPB (09:57)
== END 2023-04-01 23:59 | disposition home or self-care (01) ==
LOC: INF 02:38
PROVIDERS: PCP Family Medicine; Visit Provider Psychiatry & Neurology Neurology
DX: G70.00 Myasthenia gravis without (acute) exacerbation (principal)
CPT/HCPCS: 36415; 96365; 96366; 82565; J1459

== ENCOUNTER → 2023-03-17 09:55 | Outpatient (BNVA) | payer MEDICARE, BC, SELFPAY | PROVIDERS: PCP Family Medicine; Referring Provider Family Medicine; Visit Provider Urology | DX: C67.9 Malignant neoplasm of bladder, unspecified (principal) | CPT/HCPCS: 99214 ==

== ENCOUNTER 2023-04-01 03:20 | Outpatient (RCR) | payer MEDICARE, BC, SELFPAY ==
[2023-03-30] VITALS (7 sets, daily range): BP systolic 146–181; BP diastolic 70–82; PULSE 55–72; RESP 17–18; TEMP 36.4–37.2; O2SAT 97–100
[2023-03-30] MEDS: IMMUNE GLOBULIN 5 GM/50 ML BTL IVPB (08:03)
[2023-03-30] MEDS: IMMUNE GLOBULIN 20 GM/200 ML BTL IVPB (08:36)
[2023-03-30] MEDS: IMMUNE GLOBULIN 40 GM/400 ML BTL IVPB (09:37)
[2023-03-30] MEDS: Normal Saline Flush 10 ML SYR IVP (11:10)
[2023-03-31 07:50] VITALS: BP 156/95; PULSE 56; RESP 16; TEMP 37.2; O2SAT 98
[2023-03-31] MEDS: IMMUNE GLOBULIN 5 GM/50 ML BTL IVPB (07:55)
[2023-03-31 08:05] VITALS: BP 156/69; PULSE 57; RESP 17; TEMP 37.2; O2SAT 99
[2023-03-31 08:24] VITALS: BP 164/70; PULSE 58; RESP 18; TEMP 37.1; O2SAT 98
[2023-03-31] MEDS: IMMUNE GLOBULIN 20 GM/200 ML BTL IVPB (08:26)
[2023-03-31 08:50] LABS: CREATININE 1.2 mg/dL (0.70-1.30); Estimated GFR 63.07 (mL/min/1.73m2)
[2023-03-31 08:54] VITALS: BP 176/86; PULSE 66; RESP 16; TEMP 36.7; O2SAT 98
[2023-03-31 09:25] VITALS: BP 183/73; PULSE 58; RESP 16; TEMP 36.7; O2SAT 96
[2023-03-31] MEDS: Normal Saline Flush 10 ML SYR IVP (09:28)
[2023-03-31] MEDS: IMMUNE GLOBULIN 40 GM/400 ML BTL IVPB (09:28)
[2023-03-31 09:49] LABS: Bilirubin Negative (Negative); Blood Trace-intact (Negative); Clarity Clear (Clear); Glucose 100 mg/dL (Negative); Ketones Negative (Negative); Leukocyte Esterase Negative (Negative); Nitrite Negative (Negative); Specific Gravity 1.025 (1.005-1.025); Urobilinogen 0.2 mg/dL (Up to 0.2); pH 5.5 (5-8)
[2023-03-31 09:55] VITALS: BP 178/77; PULSE 59; RESP 17; TEMP 37; O2SAT 98
[2023-03-31 09:59] LABS: Bacteria Rare HPF (Negative); C & S Indicated? Yes; Casts Negative LPF (Negative); Crystals Negative HPF (Negative); Epithelial Cells Negative HPF (Negative); Mucus Trace (Negative); Other Cells Negative (Negative); RBC 0-2 HPF (0-2); WBC 0-2 HPF (0-5)
[2023-04-01 08:10] VITALS: BP 188/77; PULSE 56; RESP 17; TEMP 36.6; O2SAT 98
[2023-04-01] MEDS: IMMUNE GLOBULIN 5 GM/50 ML BTL IVPB (08:27)
[2023-04-01] MEDS: Normal Saline Flush 10 ML SYR IVP (08:27)
[2023-04-01 08:40] VITALS: BP 152/77; PULSE 58; RESP 17; TEMP 36.5; O2SAT 99
[2023-04-01 08:55] VITALS: BP 159/69; PULSE 61; RESP 17; TEMP 36.6; O2SAT 98
[2023-04-01] MEDS: IMMUNE GLOBULIN 20 GM/200 ML BTL IVPB (09:05)
[2023-04-01 09:25] VITALS: BP 177/74; PULSE 62; RESP 17; TEMP 36.5; O2SAT 98
[2023-04-01] MEDS: IMMUNE GLOBULIN 40 GM/400 ML BTL IVPB (09:53)
[2023-04-01 09:55] VITALS: BP 182/74; PULSE 58; RESP 16; TEMP 36.5; O2SAT 99
[2023-04-01 10:25] VITALS: BP 181/82; PULSE 60; RESP 16; TEMP 37.3; O2SAT 98
== END 2023-04-01 23:59 | disposition home or self-care (01) ==
LOC: INF 03:20
PROVIDERS: Urology; PCP Family Medicine; Visit Provider Psychiatry & Neurology Neurology
DX: G70.00 Myasthenia gravis without (acute) exacerbation (principal)
CPT/HCPCS: 36415; 96365; 96366; 99214; 81003; 81015; 82565; 87086; J1459

== ENCOUNTER → 2023-04-08 07:58 | Outpatient (BNVA) | payer MEDICARE, BC, SELFPAY | PROVIDERS: PCP Family Medicine; Referring Provider Family Medicine; Visit Provider Psychiatry & Neurology Neurology | DX: Z23 Encounter for immunization (principal) | CPT/HCPCS: 96372 ==

== ENCOUNTER 2023-04-22 01:18 | Outpatient (RCR) | payer MEDICARE, BC, SELFPAY ==
[2023-04-02 00:12] VITALS: BP 181/82; PULSE 60; RESP 16; TEMP 37.3
[2023-04-20 07:50] VITALS: BP 165/75; PULSE 74; RESP 18; TEMP 36.9; O2SAT 96
[2023-04-20] MEDS: IMMUNE GLOBULIN 5 GM/50 ML BTL IVPB (07:55)
[2023-04-20 08:10] VITALS: BP 159/72; PULSE 64; RESP 18; TEMP 37.3; O2SAT 98
[2023-04-20] MEDS: Normal Saline Flush 10 ML SYR IVP (08:22)
[2023-04-20] MEDS: IMMUNE GLOBULIN 20 GM/200 ML BTL IVPB (08:22)
[2023-04-20 08:25] VITALS: BP 145/70; PULSE 61; RESP 16; TEMP 37.3; O2SAT 95
[2023-04-20 08:55] VITALS: BP 154/73; PULSE 65; TEMP 36.4; O2SAT 98
[2023-04-20] MEDS: IMMUNE GLOBULIN 40 GM/400 ML BTL IVPB (09:18)
[2023-04-20 09:25] VITALS: BP 185/87; PULSE 67; TEMP 37.2; O2SAT 96
[2023-04-20 09:55] VITALS: BP 178/73; PULSE 61; TEMP 37.4; O2SAT 100
[2023-04-21] MEDS: Normal Saline Flush 10 ML SYR IVP (07:59)
[2023-04-21] MEDS: IMMUNE GLOBULIN 5 GM/50 ML BTL IVPB (07:59)
[2023-04-21 08:02] VITALS: BP 170/74; PULSE 66; RESP 17; TEMP 35.7; O2SAT 99
[2023-04-21 08:18] VITALS: BP 158/69; PULSE 66; RESP 17; TEMP 36.6; O2SAT 98
[2023-04-21 08:24] LABS: CREATININE 1.3 mg/dL (0.70-1.30); Estimated GFR 57.29 (mL/min/1.73m2)
[2023-04-21 08:34] VITALS: BP 174/74; PULSE 66; RESP 18; TEMP 36.4; O2SAT 98
[2023-04-21] MEDS: IMMUNE GLOBULIN 20 GM/200 ML BTL IVPB (08:43)
[2023-04-21 09:05] VITALS: BP 140/80; PULSE 49; TEMP 37.4; O2SAT 99
[2023-04-21] MEDS: IMMUNE GLOBULIN 40 GM/400 ML BTL IVPB (09:34)
[2023-04-21 09:37] VITALS: BP 160/80; PULSE 60; RESP 16; TEMP 36.6; O2SAT 99
[2023-04-21 10:46] VITALS: BP 185/85; PULSE 64; RESP 18; TEMP 36.2; O2SAT 97
[2023-04-22] VITALS (7 sets, daily range): BP systolic 143–194; BP diastolic 64–90; PULSE 52–67; RESP 17–18; TEMP 36.4–36.9; O2SAT 96–99
[2023-04-22] MEDS: IMMUNE GLOBULIN 5 GM/50 ML BTL IVPB (07:54)
[2023-04-22] MEDS: Normal Saline Flush 10 ML SYR IVP (07:54)
[2023-04-22] MEDS: IMMUNE GLOBULIN 20 GM/200 ML BTL IVPB (08:22)
[2023-04-22] MEDS: IMMUNE GLOBULIN 40 GM/400 ML BTL IVPB (09:20)
== END 2023-04-30 23:59 | disposition home or self-care (01) ==
LOC: INF 01:18
PROVIDERS: PCP Family Medicine; Visit Provider Psychiatry & Neurology Neurology
DX: G70.00 Myasthenia gravis without (acute) exacerbation (principal)
CPT/HCPCS: 36415; 96365; 96366; 82565; J1459

== ENCOUNTER → 2023-05-05 08:08 | Outpatient (BNVA) | payer MEDICARE, BC, SELFPAY | PROVIDERS: PCP Family Medicine; Referring Provider Family Medicine; Visit Provider Nurse Practitioner Adult Health | DX: G70.00 Myasthenia gravis without (acute) exacerbation (principal); Z23 Encounter for immunization | CPT/HCPCS: 90471R; 90620 ==

== ENCOUNTER 2023-05-13 03:35 | Outpatient (RCR) | payer MEDICARE, BC, SELFPAY ==
[2023-05-01 00:05] VITALS: BP 181/82; PULSE 60; RESP 16; TEMP 37.3
[2023-05-11 08:00] VITALS: BP 134/67; PULSE 66; RESP 18; TEMP 36.9; O2SAT 98
[2023-05-11] MEDS: IMMUNE GLOBULIN 5 GM/50 ML BTL 0.94 GM IVPB (08:02)
[2023-05-11 08:25] VITALS: BP 136/52; PULSE 64; RESP 18; TEMP 37.4; O2SAT 97
[2023-05-11 08:50] VITALS: BP 142/61; PULSE 63; RESP 18; TEMP 37.4; O2SAT 97
[2023-05-11] MEDS: IMMUNE GLOBULIN 20 GM/200 ML BTL IVPB (08:51)
[2023-05-11 09:20] VITALS: BP 161/72; PULSE 65; RESP 18; TEMP 37.4; O2SAT 97
[2023-05-11] MEDS: IMMUNE GLOBULIN 40 GM/400 ML BTL IVPB (09:44)
[2023-05-11] MEDS: Normal Saline Flush 10 ML SYR IVP (09:45)
[2023-05-11 09:50] VITALS: BP 162/67; PULSE 83; RESP 18; TEMP 37; O2SAT 97
[2023-05-11 10:55] VITALS: BP 172/76; PULSE 63; RESP 18; TEMP 37.2; O2SAT 98
[2023-05-12] VITALS (7 sets, daily range): BP systolic 150–165; BP diastolic 65–80; PULSE 45–59; RESP 17–18; TEMP 36.3–37.8; O2SAT 95–99
[2023-05-12] MEDS: IMMUNE GLOBULIN 5 GM/50 ML BTL IVPB (08:01)
[2023-05-12 08:33] LABS: CREATININE 1.4 mg/dL (0.70-1.30); Estimated GFR 52.41 (mL/min/1.73m2)
[2023-05-12] MEDS: IMMUNE GLOBULIN 20 GM/200 ML BTL IVPB (08:35)
[2023-05-12] MEDS: Normal Saline Flush 10 ML SYR IVP (08:35)
[2023-05-12] MEDS: IMMUNE GLOBULIN 40 GM/400 ML BTL IVPB (09:36)
[2023-05-13] VITALS (7 sets, daily range): BP systolic 143–172; BP diastolic 63–76; PULSE 18–81; RESP 16–18; TEMP 36.7–37.7; O2SAT 96–100
[2023-05-13] MEDS: IMMUNE GLOBULIN 5 GM/50 ML BTL IVPB (07:52)
[2023-05-13] MEDS: IMMUNE GLOBULIN 20 GM/200 ML BTL IVPB (08:26)
[2023-05-13] MEDS: IMMUNE GLOBULIN 40 GM/400 ML BTL IVPB (09:28)
== END 2023-05-31 23:59 | disposition home or self-care (01) ==
LOC: INF 03:35
PROVIDERS: PCP Family Medicine; Visit Provider Psychiatry & Neurology Neurology
DX: G70.00 Myasthenia gravis without (acute) exacerbation (principal)
CPT/HCPCS: 36415; 96365; 96366; 82565; J1459

== ENCOUNTER 2023-06-17 04:11 | Outpatient (RCR) | payer MEDICARE, BC, SELFPAY ==
[2023-06-01] VITALS (8 sets, daily range): BP systolic 128–185; BP diastolic 61–83; PULSE 53–75; RESP 16–17; TEMP 35.9–37.3; O2SAT 96–99
[2023-06-01] MEDS: Normal Saline Flush 10 ML SYR IVP (08:04)
[2023-06-01] MEDS: IMMUNE GLOBULIN 5 GM/50 ML BTL IVPB (08:04)
[2023-06-01] MEDS: IMMUNE GLOBULIN 20 GM/200 ML BTL IVPB (09:13)
[2023-06-01] MEDS: IMMUNE GLOBULIN 40 GM/400 ML BTL IVPB (10:07)
[2023-06-02] MEDS: IMMUNE GLOBULIN 5 GM/50 ML BTL IVPB (08:11)
[2023-06-02] MEDS: Normal Saline Flush 10 ML SYR IVP (08:11)
[2023-06-02 08:20] VITALS: BP 133/70; PULSE 64; RESP 18; TEMP 37; O2SAT 99
[2023-06-02 08:40] VITALS: BP 147/67; PULSE 64; RESP 16; TEMP 37.2; O2SAT 98
[2023-06-02 08:44] LABS: CREATININE 1.3 mg/dL (0.70-1.30); Estimated GFR 57.29 (mL/min/1.73m2)
[2023-06-02] MEDS: IMMUNE GLOBULIN 20 GM/200 ML BTL IVPB (08:46)
[2023-06-02 08:55] VITALS: BP 160/77; PULSE 63; RESP 17; TEMP 37.2; O2SAT 98
[2023-06-02 09:25] VITALS: BP 167/71; RESP 17; TEMP 37.2; O2SAT 98
[2023-06-02] MEDS: IMMUNE GLOBULIN 40 GM/400 ML BTL IVPB (09:45)
[2023-06-02 10:00] VITALS: BP 154/68; PULSE 68; RESP 18; TEMP 37.2; O2SAT 97
[2023-06-02 10:30] VITALS: BP 161/70; PULSE 59; RESP 18; TEMP 37; O2SAT 98
[2023-06-03] VITALS (7 sets, daily range): BP systolic 147–187; BP diastolic 65–88; PULSE 56–62; RESP 16–18; TEMP 37–37.4; O2SAT 93–99
[2023-06-03] MEDS: IMMUNE GLOBULIN 5 GM/50 ML BTL IVPB (07:55)
[2023-06-03] MEDS: Normal Saline Flush 10 ML SYR IVP (07:56)
[2023-06-03] MEDS: IMMUNE GLOBULIN 20 GM/200 ML BTL IVPB (08:31)
[2023-06-03] MEDS: IMMUNE GLOBULIN 40 GM/400 ML BTL IVPB (09:29)
[2023-06-17 08:00] VITALS: BP 172/73; PULSE 41; RESP 16; TEMP 36.5; O2SAT 95
[2023-06-17] MEDS: Normal Saline Flush 10 ML SYR IVP (08:33)
[2023-06-17 09:25] VITALS: BP 146/69; PULSE 62; RESP 18; TEMP 36.6; O2SAT 98
== END 2023-06-30 23:59 | disposition home or self-care (01) ==
LOC: INF 04:11
PROVIDERS: PCP Family Medicine; Visit Provider Psychiatry & Neurology Neurology
DX: G70.00 Myasthenia gravis without (acute) exacerbation (principal)
CPT/HCPCS: 36415; 96365; 96366; 82565; J1303; J1459

== ENCOUNTER 2023-07-01 04:52 | Outpatient (RCR) | payer MEDICARE, BC, SELFPAY ==
[2023-07-01 00:07] VITALS: BP 181/82; PULSE 60; RESP 16; TEMP 37.3
[2023-07-01] MEDS: RAVULIZUMAB-CWVZ 3,300 MG, Normal Saline 33 ML in EMPTY EVACUATED CONTAINER 1 EACH 95 MG IVPB (08:04)
== END 2023-07-31 23:59 | disposition home or self-care (01) ==
LOC: INF 04:52
PROVIDERS: PCP Family Medicine; Visit Provider Psychiatry & Neurology Neurology
DX: G70.00 Myasthenia gravis without (acute) exacerbation (principal)
CPT/HCPCS: 96365; J1303

== ENCOUNTER → 2023-07-28 11:15 | Outpatient (BNVA) | payer MEDICARE, BC, SELFPAY | PROVIDERS: PCP Family Medicine; Visit Provider Psychiatry & Neurology Neurology | DX: G62.9 Polyneuropathy, unspecified (principal); R00.1 Bradycardia, unspecified; G70.00 Myasthenia gravis without (acute) exacerbation | CPT/HCPCS: 99214 ==

== ENCOUNTER 2023-08-26 01:19 | Outpatient (RCR) | payer MEDICARE, BC, SELFPAY ==
[2023-08-01 00:06] VITALS: BP 181/82; PULSE 60; RESP 16; TEMP 37.3
[2023-08-26] MEDS: RAVULIZUMAB-CWVZ 3,300 MG, Normal Saline 33 ML in EMPTY EVACUATED CONTAINER 1 EACH 95 MG IVPB (08:24)
[2023-08-26] MEDS: Normal Saline Flush 10 ML SYR IVP (08:24)
== END 2023-08-30 23:59 | disposition home or self-care (01) ==
LOC: INF 01:19
PROVIDERS: PCP Family Medicine; Visit Provider Psychiatry & Neurology Neurology
DX: G70.00 Myasthenia gravis without (acute) exacerbation (principal)
CPT/HCPCS: 96365; J1303

== ENCOUNTER 2023-10-26 02:44 | Outpatient (RCR) | payer MEDICARE, BC, SELFPAY ==
[2023-08-31 00:17] VITALS: BP 181/82; PULSE 60; RESP 16; TEMP 37.3
[2023-10-26] MEDS: RAVULIZUMAB-CWVZ 3,300 MG, Normal Saline 33 ML in EMPTY EVACUATED CONTAINER 1 EACH 95 MG IVPB (08:12)
[2023-10-26] MEDS: Normal Saline Flush 10 ML SYR IVP (08:12)
== END 2023-10-31 23:59 | disposition home or self-care (01) ==
LOC: INF 02:44
PROVIDERS: PCP Family Medicine; Visit Provider Psychiatry & Neurology Neurology
DX: G70.00 Myasthenia gravis without (acute) exacerbation (principal)
CPT/HCPCS: 96365; J1303

== ENCOUNTER → 2023-11-24 10:17 | Outpatient (BNVA) | payer MEDICARE, BC, SELFPAY | PROVIDERS: PCP Family Medicine; Visit Provider Psychiatry & Neurology Neurology | DX: M79.18 Myalgia, other site (principal); G70.00 Myasthenia gravis without (acute) exacerbation; R00.1 Bradycardia, unspecified | CPT/HCPCS: 99214 ==

== ENCOUNTER 2023-11-24 11:17 | Outpatient (CLI) | payer MEDICARE, BC, SELFPAY ==
[2023-11-24 12:59] LABS: Creatine Kinase 454 U/L (39-308)
== END 2023-11-24 11:18 | disposition home or self-care (01) ==
PROVIDERS: Psychiatry & Neurology Neurology; PCP Family Medicine; Visit Provider Family Medicine
DX: M79.10 Myalgia, unspecified site (principal); G70.00 Myasthenia gravis without (acute) exacerbation; G62.9 Polyneuropathy, unspecified
CPT/HCPCS: 36415; 82550; 99214

== ENCOUNTER 2023-12-21 02:02 | Outpatient (RCR) | payer MEDICARE, BC, SELFPAY ==
[2023-11-01 00:02] VITALS: BP 181/82; PULSE 60; RESP 16; TEMP 37.3
[2023-12-21] MEDS: Normal Saline Flush 10 ML SYR IVP (08:33)
[2023-12-21] MEDS: RAVULIZUMAB-CWVZ 3,300 MG, Normal Saline 33 ML in EMPTY EVACUATED CONTAINER 1 EACH 95 MG IVPB (08:33)
== END 2023-12-31 23:59 | disposition home or self-care (01) ==
LOC: INF 02:02
PROVIDERS: PCP Family Medicine; Visit Provider Psychiatry & Neurology Neurology
DX: G70.00 Myasthenia gravis without (acute) exacerbation (principal)
CPT/HCPCS: 96365; J1303

== ENCOUNTER 2024-02-15 01:38 | Outpatient (RCR) | payer MEDICARE, BC, SELFPAY ==
[2024-01-01 00:03] VITALS: BP 181/82; PULSE 60; RESP 16; TEMP 37.3
[2024-02-15] MEDS: RAVULIZUMAB-CWVZ 3,300 MG, Normal Saline 33 ML in EMPTY EVACUATED CONTAINER 1 EACH 95 MG IVPB (08:13)
[2024-02-15 08:18] VITALS: BP 144/71; PULSE 65; RESP 18; TEMP 36.7; O2SAT 98
[2024-02-15] MEDS: Normal Saline Flush 10 ML SYR IVP (08:43)
== END 2024-03-01 23:59 | disposition home or self-care (01) ==
LOC: INF 01:38
PROVIDERS: PCP Family Medicine; Visit Provider Psychiatry & Neurology Neurology
DX: G70.00 Myasthenia gravis without (acute) exacerbation (principal)
CPT/HCPCS: 96365; J1303

== ENCOUNTER → 2024-03-15 10:23 | Outpatient (BNVA) | payer MEDICARE, BC, SELFPAY | PROVIDERS: PCP Family Medicine; Visit Provider Urology | DX: C67.9 Malignant neoplasm of bladder, unspecified (principal) | CPT/HCPCS: 81003; 99214 ==

== ENCOUNTER 2024-03-15 12:41 | Outpatient (REF) | payer MEDICARE, BC, SELFPAY ==
--- NOTE | 2024-03-15 11:15 | PAPNONF_PTH ---
PATIENT: Guillermo Hines LOC: [facility] U#:[id number] AGE/SX: 74/M ROOM: RE03/15/[address]: Sandro Kang MD : [id number] BED: DIS: 03/15/2024 SPEC #: [id number] RECD: 03/15/24 12:57 STATUS: LIZET REQ #: [id number] KITTY: 03/15/24 11:[address]: Sandro Kang DEPT: [facility] Cytology RECD BY: Cynthia Sesay ENTERED: 03/15/24 12:57 SP TYPE: VELVET REINA DR: Rocky Porter MD Tissues: 1 - BODY FLUID CYTO(SPUTUM/URINE)[facility] Procedures: BODY FLUID CYTO(URINE/SPUTUM) Comments: [id number] (TV = 40 ml, 30 ml CYTOLYT ADDED) (REFRIGERATED)
== END 2024-03-15 12:42 | disposition home or self-care (01) ==
LOC: LBN 12:41
PROVIDERS: PCP Family Medicine; Visit Provider Urology
DX: C67.9 Malignant neoplasm of bladder, unspecified (principal)
CPT/HCPCS: 88104

== ENCOUNTER → 2024-03-23 10:10 | Outpatient (BNVA) | payer MEDICARE, BC, SELFPAY | PROVIDERS: PCP Family Medicine; Referring Provider Family Medicine; Visit Provider Psychiatry & Neurology Neurology | DX: M79.18 Myalgia, other site (principal); E11.9 Type 2 diabetes mellitus without complications; G70.00 Myasthenia gravis without (acute) exacerbation | CPT/HCPCS: 99215 ==

== ENCOUNTER 2024-04-11 02:25 | Outpatient (RCR) | payer MEDICARE, BC, SELFPAY ==
[2024-03-02 00:02] VITALS: BP 181/82; PULSE 60; RESP 16; TEMP 37.3
[2024-04-11] MEDS: Normal Saline Flush 10 ML SYR IVP (09:04)
[2024-04-11] MEDS: RAVULIZUMAB-CWVZ 3,300 MG, Normal Saline 33 ML in EMPTY EVACUATED CONTAINER 1 EACH 95 MG IVPB (09:04)
== END 2024-04-29 23:59 | disposition home or self-care (01) ==
LOC: INF 02:25
PROVIDERS: PCP Family Medicine; Visit Provider Psychiatry & Neurology Neurology
DX: G70.00 Myasthenia gravis without (acute) exacerbation (principal)
CPT/HCPCS: 96365; J1303

== ENCOUNTER 2024-06-06 03:03 | Outpatient (RCR) | payer MEDICARE, BC, SELFPAY ==
[2024-06-06 08:10] VITALS: BP 190/74; PULSE 66; RESP 18; TEMP 36.6; O2SAT 97
[2024-06-06] MEDS: RAVULIZUMAB-CWVZ 3,300 MG, Normal Saline 33 ML in EMPTY EVACUATED CONTAINER 1 EACH 95 MG IVPB (08:17)
[2024-06-06] MEDS: Normal Saline Flush 10 ML SYR IVP (08:18)
== END 2024-06-29 23:59 | disposition home or self-care (01) ==
LOC: INF 03:03
PROVIDERS: PCP Family Medicine; Visit Provider Psychiatry & Neurology Neurology
DX: G70.00 Myasthenia gravis without (acute) exacerbation (principal)
CPT/HCPCS: 96365; J1303

== ENCOUNTER 2024-07-25 15:02 | Observation (INO) | payer MEDICARE, BC, SELFPAY ==
[2024-07-25] VITALS (88 sets, daily range): BP systolic 138–247; BP diastolic 56–143; PULSE 54–116; RESP 10–33; TEMP 36.4–36.7; O2SAT 90–98
--- NOTE | 2024-07-25 15:00 | RT.EKG_ITS ---
APPROVED REPORT Exam: Resting ECG Reason for Exam: dizziness Patient Location: E HR:86 bpm ECG Measurements Heart Rate 86 AXIS TN 173 P 63 QRSd 109 QRS 53 QT 367 T 53 QTc 440 Conclusion Sinus rhythm, rate 86 No interval abnormalities PVC, decreased in frequency from priors No STEMI
--- NOTE | 2024-07-25 15:15 | DI.CT_ITS ---
Exam(s) CT BRAIN NECK CTA EXAM: CT BRAIN NECK CTA CLINICAL HISTORY: LKW 10am, R. PLATT and HTN. TECHNIQUE: Imaging Protocol: Axial CT angiography was performed with multi-slice acquisition and mu lti-planar and MIP reconstructions. CONTRAST MATERIAL: Intravenous: Omnipaque 350 Contrast volume:75 ml COMPARISON: CT CT HEAD WO from 05/06/2022 FINDINGS: Exam is limited by motion artifact. CT Head W/O and W contrast: Ventricles and Extra axial spaces: Normal in size and morphology for the patient's age. Hemorrhage: None. Cerebral parenchyma: No evidence of acute infarct or mass. Midline shift: None. Brainstem/Cerebellum: No acute findings.. Calvarium: Normal. Visualized Paranasal sinuses/Mastoids: Clear. Soft Tissues: Unremarkable. Enhancement: Normal. Venous sinuses are patent. CTA Brain W: Internal Carotid Arteries: Mild mural calcification. Right: No aneurysm, occlusion or significant stenosis. Left: No aneurysm, occlusion or significant stenosis. Middle Cerebral Arteries: Right: No aneurysm, occlusion or significant stenosis. Left: No aneurysm, occlusion or significant stenosis. Anterior Cerebral Arteries: Right: No aneurysm, occlusion or significant stenosis. Left: No aneurysm, occlusion or significant stenosis. Posterior cerebral Arteries: Right: No aneurysm, occlusion or significant stenosis. Left: No aneurysm, occlusion or significant stenosis. Vertebral Arteries: Right: No aneurysm, occlusion or significant stenosis. Left: No aneurysm, occlusion or significant stenosis. Basilar Artery: No aneurysm, occlusion or significant stenosis. CTA Neck W: Common Carotid: Right: No dissection, occlusion or significant stenosis. Left: No dissection, occlusion or significant stenosis. External Carotid: Right: No dissection, occlusion or significant stenosis. Left: No dissection, occlusion or significant stenosis. Internal Carotid: Minimal plaque bilaterally at the origins. Right: No dissection, occlusion or significant stenosis. Left: No dissection, occlusion or significant stenosis. Vertebral Artery: Right: No dissection, occlusion or significant stenosis. Left: No dissection, occlusion or significant stenosis. Lung Apices: No acute findings. Bones: No acute abnormality. Soft Tissues: Normal. IMPRESSION: 1. CTA brain: No evidence of occlusion, significant stenosis or aneurysm. 2. Head CT: No acute abnormality. 3. CTA neck: No evidence of occlusion, significant stenosis or dissection. The preliminary [facility] report was reviewed. RADIATION DOSE DELIVERED: Total DLP DATA REPOSITORY: All CT scans at this facility are submitted to the National Radiology Data Registry (NRDR) Dose Index Registry (DIR) with the [employer] (ACR). RADIATION OPTIMIZATION: All CT scans at this facility use at least one of these dose optimization te chniques: automated exposure control; mA and/or kV adjustment per patient size (includes targeted exa ms where dose is matched to clinical indication); or iterative reconstruction.
--- NOTE | 2024-07-25 15:24 | ED.GENADUL_ITS ---
Discharge Plan Disposition Patient Disposition: Admit to [facility] Condition: Improving Discharge Details Chief Complaint: Headache Clinical Impression: Hypertensive emergency, Myasthenia gravis, Type 1 diabetes, Essential hypertension Primary Care Provider: Rocky Porter ED Provider: Kaya Camacho Home Meds and New Rx's Prescriptions: No Action sulfasalazine 500 mg tablet 1,500 mg PO BID diclofenac sodium [Voltaren Arthritis Pain] 1 % gel 2 g topical .COMPLEX PRN Rx Instructions: 2 grams topical as needed; apply to single elbow, wrist or hand; for hand includes palm/fingers/back of hand insulin lispro [Humalog U-100 Insulin] 100 unit/mL solution 10 unit SC TID Humulin N NPH U-100 Insulin 100 unit/mL suspension See Rx Instructions SC DIRECTED Rx Instructions: subcutaneously as directed; 10 units in AM, 5 units PM ravulizumab-cwvz 100 mg/mL solution 3,300 mg IV Q8W doxazosin 2 mg tablet 4 mg PO QHS mycophenolate mofetil 500 mg tablet 500 mg PO BID Qty: 180 3RF pyridostigmine bromide [Mestinon] 60 mg tablet 120 mg PO TID Qty: 540 3RF Rx Instructions: Take Mestinon 120mg at 6am, 11am, 4pm. (DME) Easy Touch Insulin Safety Syr 1 EACH syringe 1 ea SQ DIRECTED Qty: 700 Rx Instructions: USE WITH INSULIN 7 X DAILY aspirin [Aspir-81] 81 mg tablet,delayed release (DR/EC) 81 mg PO DAILY spironolactone 25 mg tablet 25 mg PO DAILY Qty: 90 3RF lisinopril 40 mg tablet 40 mg PO DAILY Qty: 90 3RF insulin glargine [Lantus U-100 Insulin] 100 unit/mL solution 28 unit subcut BID Qty: 60 3RF levothyroxine 75 mcg tablet 75 mcg PO DAILY Qty: 90 3RF Rx Instructions: 06/06/2024 See task. -hb (DME) OneTouch Verio test strips Strip See Rx Instructions .Route Qty: 300 3RF Rx Instructions: Test three times daily HPI General Mode of arrival: wheelchair . Date/Time Provider Initiated Documentation: 07/25/24 15:06 . Limitations to Documentation: no limitations . Information obtained by: patient and old records reviewed . HPI Narrative: This is a 74-year-old male patient with a history of type 1 diabetes, myasthenia gravis, ulcerative colitis, hypertension and hyperlipidemia who is presenting for evaluation of right sided ocular headache and weakness. The patient reports that he was in his normal state of health upon awakening this morning, did some work in his garage and then went to take a nap, and when he awoke between 10 and 11 AM he states that he had a severe pounding headache behind his right eye radiating down to the back of his head. He states that he has not noted any changes in vision outside of his normal double peripheral vision due to his MG. He reports no recent falls or injuries, does not take anticoagulant medications. States that he felt very off balance and weak when he tried to walk and did require a wheelchair to get into the hospital today. He has some stuttering and slow speech, which he feels is close to his baseline. denies unilateral weakness or sensory changes. His blood sugar was slightly low at home today, 64, improved with oral intake. Notes that his blood pressure was markedly elevated to the 220s systolic. Denies chest pain. Related Data Home Medications ?Medication ?Instructions ?Recorded ?Confirmed insulin syringe,safety needle 1 mL #700 SYRGS 11/16/12 07/25/24 29 gauge x 1/2 (Easy Touch Insulin Safety Syringe) sulfasalazine 500 mg tablet 1,500 mg PO BID 05/28/18 07/25/24 aspirin 81 mg tablet,delayed 81 mg PO DAILY 03/19/20 07/25/24 release (Aspir-) diclofenac sodium 1 % topical gel 2 g topical .COMPLEX PRN 12/12/20 07/25/24 (Voltaren Arthritis Pain) insulin NPH isoph U-100 human 100 See Rx Instructions subcut 02/19/23 07/25/24 unit/mL subcutaneous suspension DIRECTED (Humulin N NPH U-100 Insulin (isophane susp)) insulin lispro 100 unit/mL 10 unit subcut TID 02/19/23 07/25/24 subcutaneous solution (Humalog U-100 Insulin) ravulizumab-cwvz 100 mg/mL 3,300 mg IV Q8W 07/28/23 07/25/24 intravenous solution doxazosin 2 mg tablet 4 mg PO QHS 03/23/24 07/25/24 mycophenolate mofetil 500 mg tablet 500 mg PO BID #180 tabs 03/23/24 07/25/24 pyridostigmine bromide 60 mg 120 mg (2 x 60 mg) PO TID weakness 03/23/24 07/25/24 tablet (Mestinon) #540 tabs spironolactone 25 mg tablet 25 mg PO DAILY #90 tabs 04/13/24 07/25/24 lisinopril 40 mg tablet 40 mg PO DAILY #90 tabs 05/05/24 07/25/24 insulin glargine 100 unit/mL 28 unit (0.28 mL) subcut BID #60 mL 05/21/24 07/25/24 subcutaneous solution (Lantus U-100 Insulin) levothyroxine 75 mcg tablet 75 mcg PO DAILY #90 tabs 06/06/24 07/25/24 blood sugar diagnostic (OneTouch #300 ea 07/11/24 07/25/24 Verio test strips) Previous Rx's ?Medication ?Instructions ?Recorded mycophenolate mofetil 500 mg tablet 500 mg PO BID #180 tabs 03/23/24 pyridostigmine bromide 60 mg 120 mg (2 x 60 mg) PO TID weakness 03/23/24 tablet (Mestinon) #540 tabs spironolactone 25 mg tablet 25 mg PO DAILY #90 tabs 04/13/24 lisinopril 40 mg tablet 40 mg PO DAILY #90 tabs 05/05/24 insulin glargine 100 unit/mL 28 unit (0.28 mL) subcut BID #60 mL 05/21/24 subcutaneous solution (Lantus U-100 Insulin) levothyroxine 75 mcg tablet 75 mcg PO DAILY #90 tabs 06/06/24 blood sugar diagnostic (OneTouch #300 ea 07/11/24 Verio test strips) Allergies Allergy/AdvReac Type Severity Reaction Status Date / Time prednisone AdvReac Severe severe Verified 07/25/24 15:12 dizziness, lightheaded and moderate SOB General Stated Complaint: Headache GINNY: 2 Exam Narrative Exam Narrative: Gen: awake and alert, in no apparent distress. Appears well nourished. HEENT: PERRL at 1 mm, EOMs full and without nystagmus. External ears and nose normal, mucous membranes moist. Neck: Supple, full range of motion, no observable masses Lungs: No increased work of breathing CV: Heart with regular rate and rhythm. Strong and symmetrical radial pulses. Abdomen: Soft, nondistended, non-tender MSK: No joint swelling, no redness. Full ROM without limitation, no external traumatic findings. Skin: No rashes or lesions to visualized skin. Normal color, warm, and dry. Neuro: Cranial nerves II-XII intact and symmetrical bilaterally. 5/5 strength in all muscle groups x4 extremities. No pronator drift, accurate targeting with [id number] no sensory deficits. Ambulation deferred due to difficulty with balance/weakness Psych: Appropriate for situation. Course Vital Signs Vital signs: Vital Signs Temperature 36.4 C 07/25/24 15:05 Pulse 89 07/25/24 15:05 Respiratory Rate 20 07/25/24 15:05 Blood Pressure 221/143 H 07/25/24 15:05 Pulse Oximetry 94 07/25/24 15:05 Temperature 36.4 C 07/25/24 15:05 Temperature Source Oral 07/25/24 15:05 Pulse 89 07/25/24 15:05 Respiratory Rate 20 07/25/24 15:05 Blood Pressure 221/143 H 07/25/24 15:05 Pulse Oximetry 94 07/25/24 15:05 Oxygen Delivery Method Room Air 07/25/24 15:05 Oxygen Flow Rate 0 07/25/24 15:05 Medical Decision Making This is a 74-year-old male patient presenting for evaluation of a right ocular headache, hypertension, and weakness/balance problems. Differential includes but is not limited to intracranial hemorrhage, stroke, vascular dissection or aneurysm. Considered mass effect, CRVO, CRAO. No vision changes, eye redness, or history of same to significantly increase my concern for glaucoma or uveitis. Patient without history of migraine or primary headache disorder. No respiratory depression or significant weakness to suggest myasthenic crisis. Considered hypertensive emergency and urgency, RCVS, PRES. no fevers to suggest meningitis or encephalitis. An IV and laboratory studies to include CBC, CMP, magnesium, troponin, and IN were obtained. We will obtain a urinalysis. I reviewed the patient's EKG, which shows a sinus rhythm with occasional PVCs, but no interval abnormalities or evidence of acute ischemia. The patient will be taken to the CT scanner for CTA brain and neck. - CTA reviewed by myself and is without evidence of intracranial hemorrhage, acute ischemia, or vascular abnormality. I reviewed the patient's laboratory studies, which shows no evidence of leukocytosis, anemia, or thrombocytopenia. INR 1.0. Chemistry panel without acute electrolyte derangement, creatinine slightly increased from most recent to 1.4 today, no liver dysfunction. Initial troponin 16, 1 hour delta 23, will continue to trend. Though the patient is without focal weakness or sensory deficit, his poor balance and the fact that his symptoms have been present for less than 24 hours do warrant teleneuro evaluation for acute stroke. The teleneurologist discussed the case and performed an examination of the patient via telehealth, and do not recommend any acute stroke intervention such as thrombolysis. He does recommend admission for MRI in the morning to evaluate for PRES, given the patient's renal dysfunction and ongoing hypertension. He does have evidence of endorgan damage concerning for hypertensive emergency, and the patient was started on nicardipine with a goal to reduce the blood pressure by approximately 30%, targeting systolics between 180 and 200. The patient did experience an episode of vomiting in our emergency department, received Zofran and did have to briefly be taken off of his nicardipine for pressures below 180 systolic. I did discuss the patient's case with the hospitalist, who is graciously accepted him for admission to our facility for ongoing workup and management of his condition. Remained neurologically intact throughout his time under my care. Kaya Camacho MD Quality:SDOH Health Related Social Needs: No Data to Display PFSH All Active Problems (Updated 07/25/24 @ 19:41 by Kaya Camacho MD) Hypertensive emergency (Acute) Hypothyroidism (acquired) (Acute) Hypertensive emergency (Acute) Shoulder pain, right (Acute) Premature ventricular contractions (Acute) Bradycardia (Acute) Impingement syndrome of right shoulder (Acute) Peripheral neuropathy (Acute) Type 1 diabetes (Acute) Followed and managed by endocrine-[facility] Arthritis of both hands (Acute) BPH associated with nocturia (Acute) Herpes zoster (Acute) Colon polyps (Acute) Mild nonproliferative diabetic retinopathy (Acute 03/09/10) Urothelial carcinoma of bladder (Acute ~03/08/18) 03/08/18 DR. MADRID-juan luis Abnormal CPK (Acute 11/16/13) Type 1 diabetes mellitus without complication (Acute 08/07/17) onset 1990. Retinopathy, neuropathy, nephropathy, Myasthenia gravis (Chronic 11/02/12) Followed by neurology at [facility], and [facility], treated with Mestinon, CellCept, and as needed IVIG infusion Hyperlipidemia (Chronic) Gastroesophageal reflux disease with esophagitis (Chronic) Essential hypertension (Chronic) Crohn's disease (Chronic) Followed-managed by [facility] GI, colonoscopy every 2 years Medical History Acute appendicitis Crohn's disease Diabetes HTN (hypertension) Hyperlipemia GERD (gastroesophageal reflux disease) Surgical History S/P laparoscopic appendectomy (~07/22/20) S/P skin cancer resection face 2017 S/P cystoscopy Status post inguinal hernia repair left and right History of cataract surgery Incision & Drainage, Abscess or Hematoma (07/29/16) perianal abscess Family History Father AAA (abdominal aortic aneurysm) Social History Smoking/Tobacco Use Status: Current every day Tobacco Type: smokeless tobacco Tobacco: How many years used: 30 Smokeless tobacco user: snuff Quit status: not considering quitting Second Hand Exposure: Yes Smoking risk assessment performed?: Yes Alcohol Intake: never Drug use: Never Substance use type: does not use Foster care: No Household members: spouse Housing: house Communication Needs: Hard of Hearing Do you need help understanding health information?: Rarely 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; [employer] Pets and animals: Yes Pets and animals: dog(s) Sexually active: No Do you think of yourself as: straight/heterosexual Current gender identity: male What is your relationship status?: How often do you talk on the phone with friends or family?: three or more times per week How often do you get together with friends or relatives?: three or more times per week How often do you attend sabianism or restorationism services?: decline to answer Do you belong to any clubs or organized social groups?: no Panel score (0-1 are the most socially isolated patients): 2 What type of physical activity do you participate in: other 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
[2024-07-25 15:34] LABS: Abs Immature Grans 0.03 10^3/uL (0.0-0.06); Absolute Basophil Count 0.05 10^3/uL (0.0-0.2); Absolute Eosinophil Count 0.04 10^3/uL (0.0-0.7); Absolute Monocyte Count 0.78 10^3/uL (0.1-0.8); Absolute Neutrophil Count 7.57 10^3/uL (1.2-6.7); Basophils % 0.6 %; Eosinophils % 0.4 %; HCT 41.6 % (40.0-50.0); HGB 13.5 g/dL (13.5-17.5); Immature Grans % 0.3 %; Lymphocytes % 5.6 %; MCH 30.1 pg (27.0-33.0); MCHC 32.5 % (32.0-36.0); MCV 93 fL (80-95); MPV 10.4 fL (8.0-11.0); Monocytes % 8.7 %; Neutrophils % 84.4 %; Platelet Count 195 10^3/uL (130-400); RBC 4.49 10^6/uL (4.36-5.78); RDW-SD 44.5 fL; WBC 8.97 10^3/uL (4.4-10.8)
[2024-07-25] MEDS: Normal Saline - Diluent 50 ML VIAL IJ (15:41)
[2024-07-25] MEDS: Omnipaque 350 MG/ML 100 ML BTL IJ (15:42)
[2024-07-25 15:45] LABS: Prothrombin Time 10.4 sec (9.1-11.1)
[2024-07-25 15:51] LABS: ALT 26 U/L (16-63); AST 22 U/L (15-37); Albumin 3.8 g/dL (3.4-5.0); Alkaline Phosphatase 66 U/L (46-116); Anion Gap 4.6 mmol/L (3-11); BUN 18 mg/dL (7-18); Bilirubin, Total 0.5 mg/dL (0.2-1.0); CO2 31.4 mmol/L (21.0-32.0); CREATININE 1.4 mg/dL (0.70-1.30); Chloride 103 mmol/L (98-107); Estimated GFR 52.09 (mL/min/1.73m2); Glucose 140 mg/dL (74-106); Magnesium 1.8 mg/dL (1.8-2.4); Potassium 3.7 mmol/L (3.5-5.1); Sodium 139 mmol/L (136-145); Total Protein 6.8 g/dL (6.4-8.2); Troponin I 16 ng/L (<or=76)
--- NOTE | 2024-07-25 16:04 | DI.VRAD_ITS ---
PROCEDURE INFORMATION: Exam: CTA Head Without And With Contrast, Arteriography Exam date and time: 07/25/2024 3:35 PM Age: 74 years old Clinical indication: Stroke-like symptoms; Dizziness/giddiness and speech disturbance; Additional info: Lalito Sanchez and HTN TECHNIQUE: Imaging protocol: Computed tomographic angiography of the head without and with contrast. Exam focused on the arteries. 3D rendering (Not supervised by radiologist): MIP and/or 3D reconstructed images were created by the technologist. Contrast material: OMNI 350; Contrast volume: 70 ml; Contrast route: INTRAVENOUS (IV); Other technique: STROKE PROTOCOL was implemented. COMPARISON: MR BRAIN WO 05/06/2022 9:44 AM FINDINGS: ANTERIOR CIRCULATION: Right internal carotid artery: Atheromatous calcification. Intracranial segment is patent with no significant stenosis or occlusion. No aneurysm. Right middle cerebral artery: No occlusion or significant stenosis. No aneurysm. Right anterior cerebral artery: No occlusion or significant stenosis. No aneurysm. Left internal carotid artery: Atheromatous calcification. Intracranial segment is patent with no significant stenosis. No aneurysm. Left middle cerebral artery: No occlusion or significant stenosis. No aneurysm. Left anterior cerebral artery: No occlusion or significant stenosis. No aneurysm. POSTERIOR CIRCULATION: Right vertebral artery: No occlusion or significant stenosis. No aneurysm. Left vertebral artery: No occlusion or significant stenosis. No aneurysm. Basilar artery: No occlusion or significant stenosis. No aneurysm. Right posterior cerebral artery: No occlusion or significant stenosis. No aneurysm. Left posterior cerebral artery: No occlusion or significant stenosis. No aneurysm. HEAD: Brain: Normal. No hemorrhage. Unremarkable white matter. No mass effect. Cerebral ventricles: Normal. No ventriculomegaly. Bones: Unremarkable. No acute fracture. Paranasal sinuses: Visualized sinuses are normal. No fluid levels. Mastoid air cells: Visualized mastoids are normal. No mastoid effusion. Soft tissues: Unremarkable. IMPRESSION: 1. No large vessel occlusion. 2. Unremarkable CT head. ASSESSMENT: ASPECTS ([place] Stroke Program Early CT Score) is ten. PROCEDURE INFORMATION: Exam: CTA Neck Without And With Contrast Exam date and time: 07/25/2024 3:35 PM Age: 74 years old Clinical indication: Stroke-like symptoms; Dizziness/giddiness and speech disturbance; Additional info: Lkw 10am, R. PLATT and HTN TECHNIQUE: Imaging protocol: Computed tomographic angiography of the neck without and with contrast. Exam focused on the cervical segments of the vasculature. 3D rendering (Not supervised by radiologist): MIP and/or 3D reconstructed images were created by the technologist. Contrast material: OMNI 350; Contrast volume: 70 ml; Contrast route: INTRAVENOUS (IV); COMPARISON: CT THORAX ABD/PEL CTA 07/22/2020 12:48 PM FINDINGS: Right common carotid artery: No stenosis. No dissection or occlusion. Right internal carotid artery: Atheromatous calcification the origin. No stenosis of the extracranial segment. No dissection or occlusion. Right external carotid artery: No occlusion or stenosis of the origin. Left common carotid artery: No stenosis. No dissection or occlusion. Left internal carotid artery: Atheromatous calcification of the origin. No stenosis of the extracranial segment. No dissection or occlusion. Left external carotid artery: No occlusion or stenosis of the origin. Right vertebral artery: Dense atheromatous calcification of the origin with the less than 50% diameter reduction. No dissection or occlusion. Left vertebral artery: Dense atheromatous calcification the origin. Approximately 50% diameter reduction.. No dissection or occlusion. Soft tissues: Normal. No significant soft tissue swelling. Bones/joints: No acute fracture. IMPRESSION: No stenosis or occlusion. REFERENCES: NASCET CRITERIA. The degree of stenosis in the cervical segment of the internal carotid artery is based on NASCET criteria. Normal is no stenosis. Mild is less than 50% stenosis. Moderate is 50-69% stenosis. Severe is 70% to 99% stenosis. Total occlusion is no detectable patent lumen. Dictated and Authenticated by: Myra Wyman MD. Orderin [facility] Gordon Kirkpatrick MD
[2024-07-25 17:13] LABS: Troponin I 23 ng/L (<or=76)
[2024-07-25] MEDS: niCARdipine 25 MG in Normal Saline 240 ML 50 MG IV (18:10)
[2024-07-25 18:25] LABS: Bilirubin Negative (Negative); Blood Trace-lysed (Negative); Clarity Clear (Clear); Glucose Negative (Negative); Ketones Negative (Negative); Leukocyte Esterase Negative (Negative); Nitrite Negative (Negative); Urobilinogen 0.2 mg/dL (Up to 0.2)
[2024-07-25 18:37] LABS: Bacteria Negative HPF (Negative); C & S Indicated? No; Casts Negative LPF (Negative); Crystals Negative HPF (Negative); Epithelial Cells Rare HPF (Negative); Mucus Negative (Negative); RBC 0-2 HPF (0-2); WBC 0-2 HPF (0-5)
[2024-07-25 18:38] LABS: Troponin I 28 ng/L (<or=76)
--- NOTE | 2024-07-25 18:48 | W.PM.HP.N ---
Date of service: 07/25/24 Time of Service: 18:49 Assessment and Plan Assessment and plan (1) Hypertensive emergency: Start date: 07/25/24 Status: Acute Assessment and plan: This is a 74-year-old gentleman who had a sudden onset of the worst headache he has ever had over his right head behind the eye with this pounding. He had associated nausea. At the time he became more weak and dizzy with a history of myasthenia gravis. He presented to the ED with markedly elevated blood pressure which required nicardipine drip for resolution. His headache resolved as his blood pressure was better controlled. Patient had no neurological complaints presently but he will have MRI of the brain and suggestion of teleneurology because of increased risk of PRES with his myasthenia gravis. Also his headache was one-sided. His symptoms will be controlled until MRI and he does not require sedation for MRI. Long-term he will follow-up with cardiology and neurology. He is a full code. (2) Essential hypertension: Start date: 07/25/24 Status: Chronic Assessment and plan: Continue outpatient medical therapy and monitor in ICU with reinitiation of nicardipine drip if needed. Long-term follow-up with cardiology. He needs an updated echocardiogram. (3) Myasthenia gravis: Status: Chronic Assessment and plan: Continue outpatient medical therapy. (4) Hyperlipidemia: Status: Chronic Assessment and plan: Continue statin therapy. (5) Gastroesophageal reflux disease with esophagitis: Status: Chronic Assessment and plan: Initiate PPI with antacids as needed. (6) Type 1 diabetes mellitus without complication: Status: Chronic Assessment and plan: Continue outpatient medical therapy except will be on sensitive sliding scale for before meals and bedtime glucometer measurements. Watch for hypoglycemia. (7) BPH associated with nocturia: Status: Chronic Assessment and plan: Continue outpatient medical therapy. (8) Hypothyroidism (acquired): Status: Chronic Assessment and plan: Continue outpatient supplementation. (9) Ulcerative colitis: Status: Chronic Assessment and plan: Patient will continue to follow-up with [facility] for screening and monitoring and he is on sulfasalazine. History of Present Illness History of Present Illness Chief Complaint: Right-sided headache with nausea and elevated blood pressure. Narrative: This is a 74-year-old male patient who has a history of type 1 diabetes mellitus, ulcerative colitis, myasthenia gravis on biologic injections and daily oral therapy not receiving IgG in the recent past, hypertension usually well-controlled and hyperlipidemia who presented with sudden onset of headache behind his right eye which was at about 10 in the morning the day of presentation. He has associated nausea. Did have some slight blurring and vision changes but he already has abnormal peripheral vision due to his myasthenia gravis. He does take Mestinon daily sometimes every 4 hours. He denies any fever or stiff neck. The headache was severe and pounding being the worst headache he has ever had but he rated as a 8 out of 10 with his pain experience. He did not have any neurological changes but was weak and required a wheelchair to be brought into the ED. His blood sugar was slightly low at home often happens with patient being a type I diabetic but this was not severe. He denies sweating. He denied any cough. In the ED his blood pressure was elevated but his systolics measured as high as 233 and diastolic as high as 143 upon presentation. He was started on a nicardipine drip and his blood pressure was improved. Teleneurology was performed and they advised control blood pressure to systolic below 200-180 and with CTA of the head and neck being negative, MRI of the brain in the morning to rule out PRES with his myasthenia gravis putting him at higher risk for this encephalopathy. Patient did have some nausea which was treated and by the time he was brought to the ICU and his headache had resolved and his blood pressure was well-controlled off nicardipine. He will be observed overnight in the ICU reinitiating therapy if needed with MRI in the morning. He is a full code Review of Systems Narrative: 13 point review of systems otherwise unrevealing or stable. PFSH All Active Problems (Updated 07/26/24 @ 06:21 by Berry Guevara) Ulcerative colitis (Chronic) Hypertensive emergency (Acute) Hypothyroidism (acquired) (Chronic) Hypertensive emergency (Acute) Shoulder pain, right (Acute) Premature ventricular contractions (Acute) Bradycardia (Acute) Impingement syndrome of right shoulder (Acute) Peripheral neuropathy (Acute) Type 1 diabetes (Acute) Followed and managed by endocrine-[facility] Arthritis of both hands (Acute) BPH associated with nocturia (Chronic) Herpes zoster (Acute) Colon polyps (Acute) Mild nonproliferative diabetic retinopathy (Acute 03/09/10) Urothelial carcinoma of bladder (Acute ~03/08/18) 03/08/18 DR. MADRID-juan luis Abnormal CPK (Acute 11/16/13) Type 1 diabetes mellitus without complication (Chronic 08/07/17) onset 1990. Retinopathy, neuropathy, nephropathy, Myasthenia gravis (Chronic 11/02/12) Followed by neurology at [facility], and [facility], treated with Mestinon, CellCept, and as needed IVIG infusion Hyperlipidemia (Chronic) Gastroesophageal reflux disease with esophagitis (Chronic) Essential hypertension (Chronic) Medical History (Updated 07/26/24 @ 06:21 by Berry Guevara) Acute appendicitis Diabetes HTN (hypertension) Hyperlipemia GERD (gastroesophageal reflux disease) Surgical History S/P laparoscopic appendectomy (~07/22/20) S/P skin cancer resection face 2017 S/P cystoscopy Status post inguinal hernia repair left and right History of cataract surgery Incision & Drainage, Abscess or Hematoma (07/29/16) perianal abscess Family History Father AAA (abdominal aortic aneurysm) Social History Smoking/Tobacco Use Status: Current every day Tobacco Type: smokeless tobacco Tobacco: How many years used: 30 Smokeless tobacco user: snuff Quit status: not considering quitting Second Hand Exposure: Yes Smoking risk assessment performed?: Yes Alcohol Intake: never Drug use: Never Substance use type: does not use Foster care: No Household members: spouse Housing: house Communication Needs: Hard of Hearing Do you need help understanding health information?: Rarely 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; [employer] Pets and animals: Yes Pets and animals: dog(s) Sexually active: No Do you think of yourself as: straight/heterosexual Current gender identity: male What is your relationship status?: How often do you talk on the phone with friends or family?: three or more times per week How often do you get together with friends or relatives?: three or more times per week How often do you attend religion or druze services?: decline to answer Do you belong to any clubs or organized social groups?: no Panel score (0-1 are the most socially isolated patients): 2 What type of physical activity do you participate in: other 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: 60-90 minutes/day Frequency: daily Cynthia/Jew: No preference Special cynthia needs: No Seatbelt use: always Helmet use: No Drive intox or 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 Do you feel safe at home: Yes Do you feel safe in your relationship?: Yes Meds Allergies and Home Medications Allergies Allergy/AdvReac Type Severity Reaction Status Date / Time prednisone AdvReac Severe severe Verified 07/25/24 15:12 dizziness, lightheaded and moderate SOB Home Medications ?Medication ?Instructions ?Recorded ?Confirmed ?Type insulin syringe,safety needle 1 mL #700 SYRGS 11/16/12 07/25/24 History 29 gauge x 1/2 (Easy Touch Insulin Safety Syringe) sulfasalazine 500 mg tablet 1,500 mg PO BID 05/28/18 07/25/24 History aspirin 81 mg tablet,delayed 81 mg PO DAILY 03/19/20 07/25/24 History release (Aspir-) diclofenac sodium 1 % topical gel 2 g topical .COMPLEX PRN 12/12/20 07/25/24 History (Voltaren Arthritis Pain) insulin NPH isoph U-100 human 100 See Rx Instructions subcut 02/19/23 07/25/24 History unit/mL subcutaneous suspension DIRECTED (Humulin N NPH U-100 Insulin (isophane susp)) insulin lispro 100 unit/mL 10 unit subcut TID 02/19/23 07/25/24 History subcutaneous solution (Humalog U-100 Insulin) ravulizumab-cwvz 100 mg/mL 3,300 mg IV Q8W 07/28/23 07/25/24 History intravenous solution doxazosin 2 mg tablet 4 mg PO QHS 03/23/24 07/25/24 History mycophenolate mofetil 500 mg tablet 500 mg PO BID #180 tabs 03/23/24 07/25/24 Rx pyridostigmine bromide 60 mg 120 mg (2 x 60 mg) PO TID weakness 03/23/24 07/25/24 Rx tablet (Mestinon) #540 tabs spironolactone 25 mg tablet 25 mg PO DAILY #90 tabs 04/13/24 07/25/24 Rx lisinopril 40 mg tablet 40 mg PO DAILY #90 tabs 05/05/24 07/25/24 Rx insulin glargine 100 unit/mL 28 unit (0.28 mL) subcut BID #60 mL 05/21/24 07/25/24 Rx subcutaneous solution (Lantus U-100 Insulin) levothyroxine 75 mcg tablet 75 mcg PO DAILY #90 tabs 06/06/24 07/25/24 Rx blood sugar diagnostic (OneTouch #300 ea 07/11/24 07/25/24 Rx Verio test strips) Exam Narrative Exam Narrative: General: Patient appears appropriate for age, slightly flattened affect. No acute distress. Alert and orient x 3. HEENT: Normocephalic, eyes with pupils equal and reactive light symmetrically, extraocular movement intact and sclera anicteric. Oropharynx with moist mucosa and good dentition. Neck: Supple without JVD. Back: Stooped posture without CVA tenderness. Lungs: Clear to auscultation percussion with no auscultated wheezes, focalizing rales or rhonchi. Fair aeration. Heart: Regular rate and rhythm with no murmurs gallops appreciated. Abdomen: Fully obese contour, soft and nontender to palpation with no palpable hepatosplenomegaly. Bowel sounds positive in all quadrants. Genitalia/rectal: Exam deferred. Extremities: Without clubbing, cyanosis or grossly pitting edema. Good capillary refill. Skin: Normal color, warm and dry. Neuro: Cranial nerves II through XII grossly intact. No focalizing motor deficits or tremor. Psych: Slightly flattened affect but normal mood. No abnormal thought processes. Remote and recent memory grossly intact. Results Imaging Imaging Studies: Exam: CTA Head Without And With Contrast, Arteriography Exam date and time: 07/25/2024 3:35 PM Age: 74 years old Clinical indication: Stroke-like symptoms; Dizziness/giddiness and speech disturbance; Additional info: Lkw 10am, R. PLATT and HTN TECHNIQUE: Imaging protocol: Computed tomographic angiography of the head without and with contrast. Exam focused on the arteries. 3D rendering (Not supervised by radiologist): MIP and/or 3D reconstructed images were created by the technologist. Contrast material: OMNI 350; Contrast volume: 70 ml; Contrast route: INTRAVENOUS (IV); Other technique: STROKE PROTOCOL was implemented. COMPARISON: MR BRAIN WO 05/06/2022 9:44 AM FINDINGS: ANTERIOR CIRCULATION: Right internal carotid artery: Atheromatous calcification. Intracranial segment is patent with no significant stenosis or occlusion. No aneurysm. Right middle cerebral artery: No occlusion or significant stenosis. No aneurysm. Right anterior cerebral artery: No occlusion or significant stenosis. No aneurysm. Left internal carotid artery: Atheromatous calcification. Intracranial segment is patent with no significant stenosis. No aneurysm. Left middle cerebral artery: No occlusion or significant stenosis. No aneurysm. Left anterior cerebral artery: No occlusion or significant stenosis. No aneurysm. POSTERIOR CIRCULATION: Right vertebral artery: No occlusion or significant stenosis. No aneurysm. Left vertebral artery: No occlusion or significant stenosis. No aneurysm. Basilar artery: No occlusion or significant stenosis. No aneurysm. Right posterior cerebral artery: No occlusion or significant stenosis. No aneurysm. Left posterior cerebral artery: No occlusion or significant stenosis. No aneurysm. HEAD: Brain: Normal. No hemorrhage. Unremarkable white matter. No mass effect. Cerebral ventricles: Normal. No ventriculomegaly. Bones: Unremarkable. No acute fracture. Paranasal sinuses: Visualized sinuses are normal. No fluid levels. Mastoid air cells: Visualized mastoids are normal. No mastoid effusion. Soft tissues: Unremarkable. IMPRESSION: 1. No large vessel occlusion. 2. Unremarkable CT head. ASSESSMENT: ASPECTS ([place] Stroke Program Early CT Score) is ten. PROCEDURE INFORMATION: Exam: CTA Neck Without And With Contrast Exam date and time: 07/25/2024 3:35 PM Age: 74 years old Clinical indication: Stroke-like symptoms; Dizziness/giddiness and speech disturbance; Additional info: Lkw 10am, R. PLATT and HTN TECHNIQUE: Imaging protocol: Computed tomographic angiography of the neck without and with contrast. Exam focused on the cervical segments of the vasculature. 3D rendering (Not supervised by radiologist): MIP and/or 3D reconstructed images were created by the technologist. Contrast material: OMNI 350; Contrast volume: 70 ml; Contrast route: INTRAVENOUS (IV); COMPARISON: CT THORAX ABD/PEL CTA 07/22/2020 12:48 PM FINDINGS: Right common carotid artery: No stenosis. No dissection or occlusion. Right internal carotid artery: Atheromatous calcification the origin. No stenosis of the extracranial segment. No dissection or occlusion. Right external carotid artery: No occlusion or stenosis of the origin. Left common carotid artery: No stenosis. No dissection or occlusion. Left internal carotid artery: Atheromatous calcification of the origin. No stenosis of the extracranial segment. No dissection or occlusion. Left external carotid artery: No occlusion or stenosis of the origin. Right vertebral artery: Dense atheromatous calcification of the origin with the less than 50% diameter reduction. No dissection or occlusion. Left vertebral artery: Dense atheromatous calcification the origin. Approximately 50% diameter reduction.. No dissection or occlusion. Soft tissues: Normal. No significant soft tissue swelling. Bones/joints: No acute fracture. IMPRESSION: No stenosis or occlusion. Labs 07/26/24 05:36 07/25/24 15:25 Labs: Laboratory Results - last 24 hr 07/25/24 07/25/24 07/25/24 15: 16:48 18:17 WBC 8.97 RBC 4.49 Hgb 13.5 Hct 41.6 MCV 93 MCH 30.1 MCHC 32.5 RDW 13.0 Plt Count 195 MPV 10.4 Immature Gran % 0.3 Neutrophils % 84.4 Lymphocytes % 5.6 Monocytes % 8.7 Eosinophils % 0.4 Basophils % 0.6 Nucleated RBC % 0.0 Absolute Neutrophils 7.57 H Absolute Lymphocytes 0.50 L Absolute Monocytes 0.78 Absolute Eosinophils 0.04 Absolute Basophils 0.05 PT 10.4 INR 1.0 Sodium 139 Potassium 3.7 Chloride 103 Carbon Dioxide 31.4 Anion Gap 4.6 BUN 18 Creatinine 1.4 H Est GFR (CKD-EPI 2020) 52.09 Glucose 140 H Calcium 9.0 Magnesium 1.8 Total Bilirubin 0.5 AST 22 ALT 26 Alkaline Phosphatase 66 Troponin I 16 23 28 Total Protein 6.8 Albumin 3.8 Urine Color Yellow Urine Clarity Clear Urine pH 7.0 Ur Specific [place] 1.020 Urine Protein >=300 H Urine Ketones Negative Urine Blood Trace-lysed H Urine Nitrite Negative Urine Bilirubin Negative Urine Urobilinogen 0.2 Ur Leukocyte Esterase Negative Urine RBC 0-2 Urine WBC 0-2 Ur Epithelial Cells Rare Urine Crystals Negative Urine Bacteria Negative Urine Casts Negative Urine Mucus Negative Ur Culture Indicated? No Urine Glucose Negative Last Vital Signs Temp 36.4 C 07/25/24 15:28 Pulse 106 H 07/25/24 18:44 Resp 21 07/25/24 18:35 BP 193/76 H 07/25/24 18:32 Pulse Ox 94 07/25/24 18:44 Time Spent Time spent with Patient: >75 minutes Time was spent: preparing to see the patient(eg.review tests), obtaining and/or reviewing separately otained hiistory, ordering medications,tests, procedures, referring, communicating with other health care program director, indepentently interpreting results and care coordination
[2024-07-25] MEDS: Ondansetron 4 MG/2 ML VIAL IVP (19:03)
[2024-07-25 19:42] LABS: TSH (W/Ref FT4) 1.66 uIU/mL (0.36-3.74)
[2024-07-25 20:26] LABS: COVID-19 PCR Negative (Negative); Influenza A PCR Negative (Negative); Influenza B PCR Negative (Negative); RSV PCR Negative (Negative)
[2024-07-25 20:27] LABS: Source Nasopharynx
[2024-07-25] MEDS: sulfaSALAzine 500 MG TAB 1500 MG PO (22:32)
[2024-07-25] MEDS: Doxazosin 2 MG TAB 4 MG PO (22:32)
[2024-07-25] MEDS: Enoxaparin 40 MG/0.4 ML SYR SC (22:34)
[2024-07-25] MEDS: Normal Saline Flush 10 ML SYR IVP (22:34)
[2024-07-25] MEDS: Calcium Carbonate *TUMS* 500 MG CHEW (22:35)
[2024-07-26] VITALS (54 sets, daily range): BP systolic 123–193; BP diastolic 66–89; PULSE 62–104; RESP 8–37; TEMP 36.7–36.8; O2SAT 93–95
--- NOTE | 2024-07-26 01:14 | NUR.NOTE ---
0115- pt resting comfortably at present:states he just wants to sleep . Dr Guevara in to see pt but pt sleeping so he wasnt disturbed.
[2024-07-26] MEDS: Ondansetron 4 MG/2 ML VIAL IVP (05:07)
[2024-07-26] MEDS: Normal Saline Flush 10 ML SYR IVP ×2 (05:08→08:36)
--- NOTE | 2024-07-26 05:21 | NUR.NOTE ---
0520- nauseated , small amt emesis with retching. Zofran 4 mg IV given with relief.:refused TEDS or yellow socks at this time too hot
[2024-07-26 05:55] LABS: HCT 41.2 % (40.0-50.0); HGB 13.7 g/dL (13.5-17.5); MCH 30.6 pg (27.0-33.0); MCHC 33.3 % (32.0-36.0); MCV 92 fL (80-95); MPV 10.8 fL (8.0-11.0); Platelet Count 209 10^3/uL (130-400); RBC 4.47 10^6/uL (4.36-5.78); RDW 12.9 % (11.8-14.1); RDW-SD 43.8 fL; WBC 7.56 10^3/uL (4.4-10.8)
[2024-07-26] MEDS: Levothyroxine 75 MCG TAB PO (06:04)
[2024-07-26] MEDS: Mylanta Suspension 30 ML CUP PO (06:05)
[2024-07-26 06:07] LABS: Prothrombin Time 10.5 sec (9.1-11.1)
[2024-07-26 06:12] LABS: ALT 27 U/L (16-63); AST 21 U/L (15-37); Albumin 3.6 g/dL (3.4-5.0); Alkaline Phosphatase 58 U/L (46-116); Anion Gap 3.7 mmol/L (3-11); BUN 17 mg/dL (7-18); Bilirubin, Total 0.6 mg/dL (0.2-1.0); CO2 31.3 mmol/L (21.0-32.0); CREATININE 1.2 mg/dL (0.70-1.30); Calcium 9.2 mg/dL (8.5-10.1); Chloride 104 mmol/L (98-107); Estimated GFR 62.67 (mL/min/1.73m2); Glucose 173 mg/dL (74-106); Magnesium 1.8 mg/dL (1.8-2.4); Potassium 3.8 mmol/L (3.5-5.1); Sodium 139 mmol/L (136-145); Total Protein 6.5 g/dL (6.4-8.2)
[2024-07-26] MEDS: Insulin NPH-Human 300 UNITS/3 ML PEN 10 UNIT SC (08:32)
[2024-07-26] MEDS: Insulin Glargine 300 UNITS/3 ML PEN 20 UNITS SC (08:34)
[2024-07-26] MEDS: Lisinopril 20 MG TAB 40 MG PO (08:35)
[2024-07-26] MEDS: Aspirin E.C. 81 MG TABEC PO (08:35)
[2024-07-26] MEDS: Spironolactone 25 MG TAB PO (08:35)
[2024-07-26] MEDS: Pantoprazole 40 MG TABCR PO (08:47)
--- NOTE | 2024-07-26 09:39 | PDOC.CMIN ---
Date of service: 07/26/24 Time of Service: 09:39 Care Management Initial Assmt Initial Assessment Reason for Hospitalization: right sided ocular headache and weakness Functional Status/Living Situation Patient Presentation: Thierry presented to the ED yesterday afternoon with c/o severe pounding headache, weakness and loss of balance. His BP was markedly elevated to the 220s systolic. MRI and teleneuro have been ordered. Thierry was up in the chair, dressed, when CM met with him today. His , Rosalva, was present as well. Both were very pleasant. Thierry stated that he was waiting for his MRI results, and was planning on going home. Thierry and Rosalva are independent in the community and denied the need for any services. 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) Instrumental Activities of Daily Living (ADLs): Independent Activities/Hobbies/SocialSupport: sugaring, yard work Medications Medication Management: No Issues/Barriers identified Advance Directives Advance Directives: Do you have an Advance Directive: Y 03/23/24 10:51 AD On File at [facility]: Y 03/23/24 10:51 Date Asked 06/02/24 06/30/24 00:13 AD Date Reviewed 07/25/24 07/25/24 19:22 COLST On File at [facility] No 03/23/24 10:51 COLST Date Scanned Code Status Resuscitation Status Full Code Portal Pt does not currently have a portal and education provided: Yes Insurance Coverage/Financial Issues Insurance: Medicare Part A & B /[facility]? Care Team Visit Care Team Role Provider Type Lyle Sotelo MD [facility] STAFF PHYSICIAN Rocky Porter MD Primary Care Provider [facility] STAFF PHYSICIAN Kaya Camacho MD Emergency Provider [facility] STAFF PHYSICIAN Berry Guevara Admit Provider NON-[facility] STAFF PHYSICIAN Attending Provider Discharge Potential Discharge Needs: PT Evaluation, PCP F/U Appt and Other (neurology and cardiology follow up as outpatient) Anticipated Barriers to Discharge: None Identified Patient/Family Education Needs: Review discharge instructions, discuss Ask Me Three Transportation: Private vehicle Plan: Thierry was discharged home this afternoon with no new services. He will f/u with his PCP, and continue per his plan of care. Thierry was transported home with his , and received all of the necessary teaching to prepare him for discharge. Social Determinants of Health Screening Will the Patient Participate in the Screening?: Declined to provide PFSH All Active Problems (Updated 07/26/24 @ 06:21 by Berry Guevara) Ulcerative colitis (Chronic) Hypertensive emergency (Acute) Hypothyroidism (acquired) (Chronic) Hypertensive emergency (Acute) Shoulder pain, right (Acute) Premature ventricular contractions (Acute) Bradycardia (Acute) Impingement syndrome of right shoulder (Acute) Peripheral neuropathy (Acute) Type 1 diabetes (Acute) [place] Arthritis of both hands (Acute) BPH associated with nocturia (Chronic) Herpes zoster (Acute) Colon polyps (Acute) Mild nonproliferative diabetic retinopathy (Acute 03/09/10) Urothelial carcinoma of bladder (Acute ~03/08/18) 03/08/18 DR. MADRID-kb Abnormal CPK (Acute 11/16/13) Type 1 diabetes mellitus without complication (Chronic 08/07/17) onset 1990. Retinopathy, neuropathy, nephropathy, Myasthenia gravis (Chronic 11/02/12) [facility], [place] [facility] treated with Mestinon, CellCept, and as needed IVIG infusion Hyperlipidemia (Chronic) Gastroesophageal reflux disease with esophagitis (Chronic) Essential hypertension (Chronic) Medical History (Updated 07/26/24 @ 06:21 by Berry Guevara) Acute appendicitis Diabetes HTN (hypertension) Hyperlipemia GERD (gastroesophageal reflux disease) Surgical History S/P laparoscopic appendectomy (~07/22/20) S/P skin cancer resection face 2017 S/P cystoscopy Status post inguinal hernia repair left and right History of cataract surgery Incision & Drainage, Abscess or Hematoma (07/29/16) perianal abscess Family History Father AAA (abdominal aortic aneurysm) Social History Smoking/Tobacco Use Status: Current every day Tobacco Type: smokeless tobacco Tobacco: How many years used: 30 Smokeless tobacco user: snuff Quit status: not considering quitting Second Hand Exposure: Yes Smoking risk assessment performed?: Yes Alcohol Intake: never Drug use: Never Substance use type: does not use Foster care: No Household members: spouse Housing: house Communication Needs: Hard of Hearing Do you need help understanding health information?: Rarely 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; [employer] Pets and animals: Yes Pets and animals: dog(s) Sexually active: No Do you think of yourself as: straight/heterosexual Current gender identity: male What is your relationship status?: How often do you talk on the phone with friends or family?: three or more times per week How often do you get together with friends or relatives?: three or more times per week How often do you attend restoration or yazdanism services?: decline to answer Do you belong to any clubs or organized social groups?: no Panel score (0-1 are the most socially isolated patients): 2 What type of physical activity do you participate in: other 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
--- NOTE | 2024-07-26 11:30 | DI.MRI_ITS ---
Exam(s) MR BRAIN WO EXAM: MR BRAIN WO CLINICAL HISTORY: Hypertensive emergency with headache, consider PES TECHNIQUE: Multiplanar multisequence MRI of the brain was performed. COMPARISON: MR MR BRAIN WO from 05/06/[address] BRAIN NECK CTA from 07/25/2024 FINDINGS: CEREBRAL PARENCHYMA: There is mild motion artifact. There is no evidence of intracranial hemorrhage, mass effect, or shift of midline structures. There are no extra-axial fluid collections. Ventricles are not enlarged or shifted. There is no significant focal signal abnormality in the cerebellar hemispheres nor within the juanita, m idbrain, and thalami. There is mild periventricular signal abnormality consistent with chronic small vessel disease. There is no significant focal signal abnormality evident on diffusion imaging to suggest acute ischem ic event. PITUITARY GLAND: No mass nor parasellar abnormality. No obvious abnormality in the cavernous sinuses. FLOW VOIDS: The expected flow void are noted. No evidence of obvious aneurysm nor obvious vascular ma lformation. PARANASAL SINUSES: The visualized paranasal sinuses appear unremarkable. No obvious finding ORBITS: No obvious findings. IMPRESSION: No significant acute intracranial findings on this noninfused MRI scan of the brain. Mild bilateral periventricular signal abnormalities consistent with chronic small vessel disease. Th ere is, however, no evidence of acute infarct nor intracranial hemorrhage. DATA REPOSITORY:
[2024-07-26] MEDS: Insulin Aspart 300 UNITS/3 ML PEN SC (12:13)
[2024-07-26] MEDS: sulfaSALAzine 500 MG TAB 1500 MG PO (12:31)
--- NOTE | 2024-07-26 15:52 | W.PM.DS.N ---
Date of service: 07/26/24 Time of Service: 15:52 DS: Diagnosis Discharge Diagnosis (1) Hypertensive emergency: Status: Acute (2) Essential hypertension: Status: Chronic (3) Myasthenia gravis: Status: Chronic (4) Hyperlipidemia: Status: Chronic (5) Gastroesophageal reflux disease with esophagitis: Status: Chronic (6) Type 1 diabetes mellitus without complication: Status: Chronic (7) BPH associated with nocturia: Status: Chronic (8) Hypothyroidism (acquired): Status: Chronic (9) Ulcerative colitis: Status: Chronic Discharge Plan Disposition Patient Disposition: Home Condition: Stable Discharge Details Reason For Visit: hypertensive emergency,IDDM, myasthenia gravis Admit Date/Time: 07/25/24 19:10 Admit Provider: Berry Guevara Attending Provider: Berry Guevara Primary Care Provider: Rocky Porter Hospital Course Hospital Course: 74-year-old male patient who has a history of type 1 diabetes mellitus, ulcerative colitis, myasthenia gravis on biologic injections and daily oral therapy, hypertension usually well-controlled, and hyperlipidemia who presented with sudden onset of severe headache behind his right eye to right right nuchal area associated with nausea. He had no acute neurologic exam deficits but his blood pressure was as high as 233 systolic and 143 diastolic. He was started on nicardipine drip and admitted to the ICU. His blood pressure improved and his headache resolved. He was off the drip by the following morning. His kidney function was at baseline and his TSH was normal at 1.66. Teleneurology was consulted and raised concern of PRES (posterior reversible encephalopathy) associated with his myasthenia gravis. MRI was performed and was normal, which is not c/w this syndrome. He was discharged on his outpatient medication. He had already cut his doxazosin to 2mg due to leg swelling. I did review his PCP and nephrology notes. He stopped his amlodipine 10mg due to swelling, so we decided to see if he can tolerate 2.5mg. Nephrology also had him on 12.5mg QOD chlorthalidone. He could try this again or another long acting thiazide like indipamide. He could also increase his spironolactone. PCP Follow up: Follow up 2 weeks for blood pressure. Home Meds and New Rx's Prescriptions: New amlodipine 2.5 mg tablet 2.5 mg PO DAILY Qty: 30 0RF Continued sulfasalazine 500 mg tablet 1,500 mg PO BID diclofenac sodium [Voltaren Arthritis Pain] 1 % gel 2 g topical .COMPLEX PRN Rx Instructions: 2 grams topical as needed; apply to single elbow, wrist or hand; for hand includes palm/fingers/back of hand insulin lispro [Humalog U-100 Insulin] 100 unit/mL solution 10 unit SC TID Humulin N NPH U-100 Insulin 100 unit/mL suspension See Rx Instructions SC DIRECTED Rx Instructions: subcutaneously as directed; 10 units in AM, 5 units PM ravulizumab-cwvz 100 mg/mL solution 3,300 mg IV Q8W mycophenolate mofetil 500 mg tablet 500 mg PO BID Qty: 180 3RF pyridostigmine bromide [Mestinon] 60 mg tablet 120 mg PO TID Qty: 540 3RF Rx Instructions: Take Mestinon 120mg at 6am, 11am, 4pm. (DME) Easy Touch Insulin Safety Syr 1 EACH syringe 1 ea SQ DIRECTED Qty: 700 Rx Instructions: USE WITH INSULIN 7 X DAILY aspirin [Aspir-81] 81 mg tablet,delayed release (DR/EC) 81 mg PO DAILY spironolactone 25 mg tablet 25 mg PO DAILY Qty: 90 3RF lisinopril 40 mg tablet 40 mg PO DAILY Qty: 90 3RF insulin glargine [Lantus U-100 Insulin] 100 unit/mL solution 28 unit subcut BID Qty: 60 3RF levothyroxine 75 mcg tablet 75 mcg PO DAILY Qty: 90 3RF Rx Instructions: 06/06/2024 See task. -hb (DME) OneTouch Verio test strips Strip See Rx Instructions .Route Qty: 300 3RF Rx Instructions: Test three times daily Changed doxazosin 2 mg tablet 2 mg PO QHS Qty: 0 0RF Discharge Instructions Instructions: High blood pressure emergencies Additional Instructions: Your headache was caused by severe high blood pressure. Restart amlodipine at low dose of 2.5mg. This should give you some benefit without leg swelling Activity:: Activity as Tolerated Equipment/Supplies:: No Equipment Needed Diet:: As Tolerated Discharge Orders Discharge Orders: Discharge Order (Routine); Ordered 07/26/24 Ordered By: Lyle Sotelo DS: Summary Time Spent with Patient providing and/or coordinating discharge services: Greater than 30 minutes Status at Discharge Functional status at discharge: independent ambulation Overall status at discharge: patient is back to baseline Mental Status: mental status grossly normal Speech and Movement: speech and movement normal Mood: congruent mood Affect: normal affect Quality:SDOH Health Related Social Needs: No Data to Display Exam Narrative Exam Narrative: General: Patient appears appropriate for age. No acute distress. Alert and orient x 3. Lungs: Clear to auscultation percussion with no auscultated wheezes, focalizing rales or rhonchi. Fair aeration. Heart: Regular rate and rhythm with no murmurs gallops appreciated. Abdomen: soft, NT Extremities: Without clubbing, cyanosis or grossly pitting edema. Good capillary refill.. Neuro: Cranial nerves II through XII grossly intact. No focalizing motor deficits or tremor. Psych Mental Status: mental status grossly normal Speech and Movement: speech and movement normal Mood: congruent mood Affect: normal affect DS: Data Vitals/I&O Vitals and I&O: Vital Signs Temperature 36.7 C 07/26/24 04:00 Temperature Source Temporal Artery Scan 07/26/24 04:00 Pulse 82 07/26/24 10:01 Pulse 85 07/26/24 10:01 Respiratory Rate 8 L 07/26/24 10:01 Respiratory Effort Normal 07/25/24 20:35 Respiratory Depth Normal 07/25/24 20:35 Respiratory Pattern Normal 07/25/24 20:35 Blood Pressure 181/80 H 07/26/24 10:01 Blood Pressure Mean 110 07/26/24 10:01 Blood Pressure Position Supine 07/25/24 15:28 Pulse Oximetry 93 07/26/24 10:01 Oxygen Delivery Method Room Air 07/25/24 20:35 Oxygen Flow Rate 0 07/25/24 20:35 Pain Level 0 07/25/24 20:35 Comment prior to my shift 07/26/24 06:02 Intake & Output 07/25/24 07/26/24 07/26/24 23:59 11:59 23:59 Intake Total 68.333 / 68.333 500 / 500 Output Total 150 / 150 450 / 450 Balance -81.667 / -81.667 50 / 50 Weight 92.3 kg 93 kg Intake: IV 68.333 / 68.333 Oral 500 / 500 Output: Urine 150 / 150 450 / 450 Other: Urine Color Light May Dark May Urine Appearance Clear Clear Urine Odor Normal Normal Stool Size Moderate Stool Characteristics Soft Formed Brown Data Completed and Pending Labs on day of discharge: Labs from last 24 hours 07/26/24 07/25/24 07/25/24 05:36 19:45 18:17 WBC 7.56 RBC 4.47 Hgb 13.7 Hct 41.2 MCV 92 MCH 30.6 MCHC 33.3 RDW 12.9 Plt Count 209 MPV 10.8 PT 10.5 INR 1.0 Sodium 139 Potassium 3.8 Chloride 104 Carbon Dioxide 31.3 Anion Gap 3.7 BUN 17 Creatinine 1.2 Est GFR (CKD-EPI 2020) 62.67 Glucose 173 H Calcium 9.2 Magnesium 1.8 Total Bilirubin 0.6 AST 21 ALT 27 Alkaline Phosphatase 58 Troponin I 28 Total Protein 6.5 Albumin 3.6 TSH 1.66 Urine Color Yellow Urine Clarity Clear Urine pH 7.0 Ur Specific Colt 1.020 Urine Protein >=300 H Urine Ketones Negative Urine Blood Trace-lysed H Urine Nitrite Negative Urine Bilirubin Negative Urine Urobilinogen 0.2 Ur Leukocyte Esterase Negative Urine RBC 0-2 Urine WBC 0-2 Ur Epithelial Cells Rare Urine Crystals Negative Urine Bacteria Negative Urine Casts Negative Urine Mucus Negative Ur Culture Indicated? No Urine Glucose Negative COVID-19 Source Nasopharynx SARS-CoV-2 (PCR) Negative Influenza Type A (PCR) Negative Influenza Type B (PCR) Negative RSV (PCR) Negative 07/25/24 07/25/24 16:48 15:25 WBC RBC Hgb Hct MCV MCH MCHC RDW Plt Count MPV PT INR Sodium 139 Potassium 3.7 Chloride 103 Carbon Dioxide 31.4 Anion Gap 4.6 BUN 18 Creatinine 1.4 H Est GFR (CKD-EPI 2020) 52.09 Glucose 140 H Calcium 9.0 Magnesium 1.8 Total Bilirubin 0.5 AST 22 ALT 26 Alkaline Phosphatase 66 Troponin I 23 16 Total Protein 6.8 Albumin 3.8 TSH Urine Color Urine Clarity Urine pH Ur Specific Colt Urine Protein Urine Ketones Urine Blood Urine Nitrite Urine Bilirubin Urine Urobilinogen Ur Leukocyte Esterase Urine RBC Urine WBC Ur Epithelial Cells Urine Crystals Urine Bacteria Urine Casts Urine Mucus Ur Culture Indicated? Urine Glucose COVID-19 Source SARS-CoV-2 (PCR) Influenza Type A (PCR) Influenza Type B (PCR) RSV (PCR) PFSH All Active Problems (Updated 07/26/24 @ 06:21 by Berry Guevara) Ulcerative colitis (Chronic) Hypertensive emergency (Acute) Hypothyroidism (acquired) (Chronic) Hypertensive emergency (Acute) Shoulder pain, right (Acute) Premature ventricular contractions (Acute) Bradycardia (Acute) Impingement syndrome of right shoulder (Acute) Peripheral neuropathy (Acute) Type 1 diabetes (Acute) Followed and managed by endocrine-[facility] [place] Arthritis of both hands (Acute) BPH associated with nocturia (Chronic) Herpes zoster (Acute) Urothelial carcinoma of bladder (Acute ~03/08/18) 03/08/18 DR. [id number] Abnormal CPK (Acute 11/16/13) Type 1 diabetes mellitus without complication (Chronic 08/07/17) onset 1990. Retinopathy, neuropathy, nephropathy, Myasthenia gravis (Chronic 11/02/12) Followed by neurology at [facility], and [facility] [place], treated with Mestinon, CellCept, and as needed IVIG infusion Mild nonproliferative diabetic retinopathy (Acute 03/09/10) Hyperlipidemia (Chronic) Gastroesophageal reflux disease with esophagitis (Chronic) Essential hypertension (Chronic) Colon polyps (Acute) Medical History (Updated 07/26/24 @ 06:21 by Berry Guevara) Acute appendicitis Diabetes HTN (hypertension) Hyperlipemia GERD (gastroesophageal reflux disease) Surgical History S/P laparoscopic appendectomy (~07/22/20) S/P skin cancer resection face 2017 S/P cystoscopy Status post inguinal hernia repair left and right History of cataract surgery Incision & Drainage, Abscess or Hematoma (07/29/16) perianal abscess Family History Father AAA (abdominal aortic aneurysm) Social History Smoking/Tobacco Use Status: Current every day Tobacco Type: smokeless tobacco Tobacco: How many years used: 30 Smokeless tobacco user: snuff Quit status: not considering quitting Second Hand Exposure: Yes Smoking risk assessment performed?: Yes Alcohol Intake: never Drug use: Never Substance use type: does not use Foster care: No Household members: spouse Housing: house Communication Needs: Hard of Hearing Do you need help understanding health information?: Rarely 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; [employer] Pets and animals: Yes Pets and animals: dog(s) Sexually active: No Do you think of yourself as: straight/heterosexual Current gender identity: male What is your relationship status?: How often do you talk on the phone with friends or family?: three or more times per week How often do you get together with friends or relatives?: three or more times per week How often do you attend confucianism or buddhist services?: decline to answer Do you belong to any clubs or organized social groups?: no Panel score (0-1 are the most socially isolated patients): 2 What type of physical activity do you participate in: other Details: 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 Duration: 60-90 minutes/day Frequency: daily Cynthia/Adventism: No preference Special cynthia needs: No Seatbelt use: always Helmet use: No Drive intox or ride w/intox commercial driver's license driver: No Do you feel safe at home: Yes Do you feel safe in your relationship?: Yes Time Spent with Patient Time Spent with Patient: 45-69 minutes Time was spent: preparing to see the patient(eg.review tests), obtaining and/or reviewing separately otained hiistory, ordering medications,tests, procedures, referring, communicating with other health urgent care physician assistant, indepentently interpreting results, counseling the patient, care coordination and other
== END 2024-07-26 16:26 | disposition home or self-care (01) ==
LOC: ER 19:41 → ICU 07-26 07:45
PROVIDERS: Admitting Provider Family Medicine; Emergency Provider Emergency Medicine; PCP Family Medicine; Responsible Provider Family Medicine; Visit Provider Family Medicine
DX: I16.1 Hypertensive emergency (principal); G70.00 Myasthenia gravis without (acute) exacerbation; I10 Essential (primary) hypertension; E78.2 Mixed hyperlipidemia; K21.00 Gastro-esophageal reflux disease with esophagitis, without bleeding; N40.1 Benign prostatic hyperplasia with lower urinary tract symptoms; R35.1 Nocturia; E03.9 Hypothyroidism, unspecified; K51.80 Other ulcerative colitis without complications; Z79.82 Long term (current) use of aspirin; Z79.899 Other long term (current) drug therapy; R51.9 Headache, unspecified; R11.11 Vomiting without nausea; I49.3 Ventricular premature depolarization; E10.3299 Type 1 diabetes mellitus with mild nonproliferative diabetic retinopathy without macular edema, unspecified eye; C67.9 Malignant neoplasm of bladder, unspecified; F17.220 Nicotine dependence, chewing tobacco, uncomplicated
CPT/HCPCS: 00123; 36415; 70496; 70498; 80053; 85027; 87637; 93005; 96365; 96366; 96375; 96376; 99291; J1650; 70551; 81003; 81015; 83735; 84443; 84484; 85025; 85610; 93010; 99223; 99239; G0378; J1815; J2404; J2405; J3490; J7517

== ENCOUNTER 2024-08-01 03:20 | Outpatient (RCR) | payer MEDICARE, BC, SELFPAY ==
[2024-08-01] MEDS: RAVULIZUMAB-CWVZ 3,300 MG, Normal Saline 33 ML in EMPTY EVACUATED CONTAINER 1 EACH 95 MG IVPB (08:23)
[2024-08-01] MEDS: Normal Saline Flush 10 ML SYR IVP (08:24)
== END 2024-08-01 08:01 ==
LOC: INF 03:20
PROVIDERS: PCP Family Medicine; Visit Provider Psychiatry & Neurology Neurology
DX: G70.00 Myasthenia gravis without (acute) exacerbation (principal)
CPT/HCPCS: 96365; J1303

== ENCOUNTER 2024-08-25 08:52 | Outpatient (CLI) | payer MEDICARE, BC, SELFPAY ==
[2024-08-25 12:25] LABS: Anion Gap 5.1 mmol/L (3-11); BUN 22 mg/dL (7-18); CO2 28.9 mmol/L (21.0-32.0); CREATININE 1.2 mg/dL (0.70-1.30); Calcium 8.7 mg/dL (8.5-10.1); Chloride 103 mmol/L (98-107); Estimated GFR 62.67 (mL/min/1.73m2); Glucose 222 mg/dL (74-106); Potassium 4.3 mmol/L (3.5-5.1); Sodium 137 mmol/L (136-145)
== END 2024-08-25 08:53 | disposition home or self-care (01) ==
LOC: LBO 08:53
PROVIDERS: PCP Family Medicine; Visit Provider Family Medicine
DX: E87.1 Hypo-osmolality and hyponatremia (principal)
CPT/HCPCS: 36415; 80048

== ENCOUNTER 2024-09-15 17:26 | Outpatient (REF) | payer MEDICARE, BC, SELFPAY ==
[2024-09-15 20:55] LABS: COMMENT (LAB VIEW ONLY) 103.36 mg/dL
[2024-09-15 20:56] LABS: Microalb ug/mg Crea 645.3 ug/mg Cr
== END 2024-09-15 17:27 | disposition home or self-care (01) ==
LOC: LBN 17:26
PROVIDERS: PCP Family Medicine; Visit Provider Family Medicine
DX: E11.9 Type 2 diabetes mellitus without complications (principal)
CPT/HCPCS: 82043; 82570

== ENCOUNTER → 2024-09-21 09:55 | Outpatient (BNVA) | payer MEDICARE, BC, SELFPAY | PROVIDERS: PCP Family Medicine; Referring Provider Family Medicine; Visit Provider Psychiatry & Neurology Neurology | DX: G70.00 Myasthenia gravis without (acute) exacerbation (principal); G62.9 Polyneuropathy, unspecified; R00.1 Bradycardia, unspecified; I95.1 Orthostatic hypotension; E11.59 Type 2 diabetes mellitus with other circulatory complications; I10 Essential (primary) hypertension | CPT/HCPCS: 99215 ==

== ENCOUNTER 2024-09-26 02:50 | Outpatient (CLI) | payer MEDICARE, BC, SELFPAY ==
[2024-09-26] MEDS: RAVULIZUMAB-CWVZ 3,300 MG, Normal Saline 33 ML in EMPTY EVACUATED CONTAINER 1 EACH 95 MG IVPB (08:00)
[2024-09-26] MEDS: Normal Saline Flush 10 ML SYR IVP (08:01)
== END 2024-09-26 15:35 ==
PROVIDERS: PCP Family Medicine; Visit Provider Psychiatry & Neurology Neurology
DX: G70.00 Myasthenia gravis without (acute) exacerbation (principal)
CPT/HCPCS: 96365; J1303

== ENCOUNTER 2024-11-21 06:51 | Outpatient (CLI) | payer MEDICARE, BC, SELFPAY ==
[2024-11-21 08:05] VITALS: BP 175/67; PULSE 60; RESP 18; TEMP 36.5; O2SAT 96
[2024-11-21] MEDS: RAVULIZUMAB-CWVZ 3,300 MG, Normal Saline 33 ML in EMPTY EVACUATED CONTAINER 1 EACH 95 MG IVPB (08:13)
[2024-11-21] MEDS: Normal Saline Flush 10 ML SYR IVP (08:13)
[2024-11-21 08:35] LABS: Potassium 4.5 mmol/L (3.5-5.1)
== END 2024-11-21 06:52 | disposition home or self-care (01) ==
LOC: INF 06:51
PROVIDERS: PCP Family Medicine; Visit Provider Psychiatry & Neurology Neurology
DX: G70.00 Myasthenia gravis without (acute) exacerbation (principal); I10 Essential (primary) hypertension
CPT/HCPCS: 36415; 96365; 84132; J1303

== ENCOUNTER 2025-01-17 03:14 | Outpatient (CLI) | payer MEDICARE, BC, SELFPAY ==
[2025-01-17] MEDS: Normal Saline Flush 10 ML SYR IVP (08:19)
[2025-01-17] MEDS: RAVULIZUMAB-CWVZ 3,300 MG, Normal Saline 33 ML in EMPTY EVACUATED CONTAINER 1 EACH 95 MG IVPB (08:19)
== END 2025-01-17 03:15 | disposition home or self-care (01) ==
LOC: INF 03:14
PROVIDERS: PCP Family Medicine; Visit Provider Psychiatry & Neurology Neurology
DX: G70.00 Myasthenia gravis without (acute) exacerbation (principal)
CPT/HCPCS: 96365; J1303